=== PATIENT | female | born 2000 | race Caucasian/White ===

== ENCOUNTER 2023-06-12 21:02 | Outpatient (REF) | payer OTHER, SELFPAY ==
[2023-06-17 09:09] LABS: Age Gdln ACOG Testing Note (.); IGP, rfx Aptima HPV ASCU Note (.)
== END 2023-06-12 21:03 | disposition home or self-care (01) ==
LOC: LAB 21:02
PROVIDERS: Family Provider Family Medicine; Visit Provider Obstetrics & Gynecology
DX: Z01.419 Encounter for gynecological examination (general) (routine) without abnormal findings (principal)
CPT/HCPCS: G0145

== ENCOUNTER 2023-06-23 10:05 | Outpatient (OUT) | payer OTHER, SELFPAY ==
--- NOTE | 2023-06-23 10:41 | XR_ITS ---
[address] [address] Patient Name: LUBA MCGEE MRN: [id number] date: 2000 Sex: F Assigned Patient Location: [facility] Current Patient Location: [facility] Accession/Order Number: [id number] Exam Date: 06/23/2023 10:45 Report Date: 06/23/2023 10:59 At the request of: KENDAL KAMINSKI Procedure: XR chest 2V EXAMINATION: XR chest 2V HISTORY: Preop exam COMPARISON: No relevant comparison available. TECHNIQUE: PA and lateral FINDINGS: LUNGS: No significant pulmonary parenchymal abnormalities. VASCULATURE: No increased pulmonary vasculature. PLEURA: No pneumothorax, effusion, or pleural thickening. CARDIAC: No cardiomegaly or cardiac silhouette abnormality. MEDIASTINUM: No visible mass or adenopathy. BONES: No fracture or visible bone lesion. Moderate pectus excavatum. Rotatory levocurvature OTHER: Negative. XR/XR chest 2V IMPRESSION: No acute cardiopulmonary process Electronically authenticated by: JV JENKINS Date: 06/23/2023 10:59
== END 2023-06-23 10:06 | disposition home or self-care (01) ==
LOC: PST 10:05
PROVIDERS: Family Provider Family Medicine; Visit Provider Obstetrics & Gynecology
DX: Z01.810 Encounter for preprocedural cardiovascular examination (principal); R10.2 Pelvic and perineal pain
CPT/HCPCS: 71046

== ENCOUNTER 2023-07-07 07:50 | Day surgery (SDC) | payer OTHER, SELFPAY ==
[2023-06-23 10:46] VITALS: BP 122/82; PULSE 81; TEMP 36.5; O2SAT 97; BMI 25.3
--- OUTSIDE RECORDS SUMMARY | 2023-07-07 07:55 | XMS_ITS | CCD ---
Author Organization [facility] Care Team Providers Care Wet Process Head Miller Name Role Phone Melina Quinteros Chloe Primary Care Physician [phone] Annabel Manuel Unavailable Unavailable TIMMIS, DR LANCASTER Admitting Unavailable TIMMIS, DR LANCASTER Attending Unavailable TIMMIS, DR LANCASTER Consulting Unavailable ALLSOP, DR PRATER Consulting Unavailable TIMMIS, DR LANCASTER Admitting Unavailable TIMMIS, DR LANCASTER Attending Unavailable TIMMIS, DR LANCASTER Consulting Unavailable ALLSOP, DR PRATER Consulting Unavailable TIMMIS, DR LANCASTER Admitting Unavailable TIMMIS, DR LANCASTER Attending Unavailable TIMMIS, DR LANCASTER Consulting Unavailable ALLSOP, DR PRATER Consulting Unavailable Sasha Howell MD Unavailable Ana Celaya Unavailable Ana Celaya Primary Care Provider Ama MCGINNIS Unavailable UNKNOWN, PHYSICIAN Primary Care Unavailable UNKNOWN, PHYSICIAN Referring Unavailable EBRAHEIM, JAYDEN Admitting Unavailable EBRAHEIM, JAYDEN Attending Unavailable Sasha Howell MD Unavailable Ana Celaya MD Unavailable [phone] Ana Celaya MD Primary Care Provider BRAEDEN RAI Primary Care Physician BRAEDEN RAI Primary Care Unavailable BRAEDEN RAI Attending Unavailable BRAEDEN RAI Admitting Unavailable BRAEDEN RAI Primary Care Unavailable Viet Lovelace Attending Unavailable BRAEDEN RAI Primary Care Unavailable Renu Mckoy Attending Unavaila ble BRAEDEN RAI Admitting Unavailable BRAEDEN RAI Primary Care Unavailable BRAEDEN RAI Attending Unavailable JOSEPHINE MONTEIRO Attending Unavailable [facility], [facility] Primary Care Unavailable JOSEPHINE MONTEIRO Referring Unavailable BRAEDEN RAI Referring Unavailable ANA CELAYA Primary Care Unavailable JOSEPHINE MONTEIRO Attending Unavailable ANA CELAYA Primary Care Unavailable TASHA MUÑOZ Referring Unavailable ANA CELAYA Primary Care Unavailable TASHA MUÑOZ Referring Unavailable KENDAL KAMINSKI Attending Unavailable KENDAL KAMINSKI Attending Unavailable Ana Celaya MD Primary Care Provider [phone] ANA CELAYA Primary Care Unavailable JOSEPH DONOVAN Attending Unavailable JOSEPH DONOVAN Referring Unavailable ANA CELAYA Primary Care Unavailable ANA CELAYA Primary Care Unavailable AMA RAPP Attending Unavailable ANA CELAYA Primary Care Unavailable TASHA MUÑOZ Referring Unavailable TASHA MUÑOZ Attending Unavailable ANA CELAYA Primary Care Unavailable TASHA MUÑOZ Referring Unavailable ANA CELAYA Primary Care Unavailable TASHA MUÑOZ Attending Unavailable NELSY CONNER Referring Unavailable Allergies Allergy Classification Reported Allergen(s) Allergy Type Date of Onset Reaction(s) Facility (1 source) Amoxicillin / Clavulanate; Translations: [AUGMENTIN] Drug Allergy 06-30-2020 [facility] Medications Current Medications Medication Drug Class(es) Dates Sig (Normalized) Sig (Original) 12 hr buPROPion hydrochloride 100 mg extended release oral tablet (3 sources) Aminoketone Start: 06-13-2023 take 1 tablet by mouth once daily in the morning buPROPion SR (WELLBUTRIN SR) 100 mg 12 hr tablet Take 100 mg by mouth every morning. 0 06/13/2023 Active dicyclomine hydrochloride 10 mg oral capsule (13 sources) Anticholinergic Start: 05-08-2020 take 2 capsules by mouth three times daily as needed dicyclomine (BENTYL) 10 mg capsule Indications: Ileitis Take 2 capsules by mouth three times daily as needed. 60 capsule 3 05/08/2020 Active Comment on above: Take 2 capsules by m outh three times daily as needed. hydrOXYzine hydrochloride 25 mg oral tablet (12 sources) Antihistamine take 1 tablet by mouth every eight hours as needed hydrOXYzine HCl (ATARAX) 25 mg tablet Take 25 mg by mouth three times daily as needed. 0 Active Comment on above: Take 25 mg by mouth three times daily as needed. hyoscyamine sulfate 0.125 mg oral tablet (7 sources) Start: 04-25-2023 take 1 tablet by mouth four times daily as needed for muscle spasms Levsin 0.125 mg SL Tab 0.125 mg = 1 tab(s), Oral, QID, PRN for spasm, # 40 tab(s), Refills(s) 0, [facility]acy: [id number], 162, cm, 04/25/23 14:50:00 EST, Height/Length Dosing, 70.9, kg, 04/25/23 14:50:00 EST, Weight Dosing Start Date: 04/25/23 Status: Ordered Start: 11-19-2019 take 1 tablet under the tongue every four hours hyoscyamine 0.125 mg sublingual Tab 0.125 mg = 1 tab(s), SubLingual, q4hr, # 90 tab(s), Refills(s) 0 Start Date: 11/19/19 Status: Ordered hyoscyamine 0.125 mg sublingual Tab (3 sources) Start: 11-19-2019 take 1 tablet under the tongue every four hours hyoscyamine 0.125 mg sublingual Tab 0.125 mg = 1 tab(s), SubLingual, q4hr, # 90 tab(s), Refills(s) 0 Start Date: 11/19/19 Status: Ordered medroxyPROGESTERone (20 sources) Progestin Start: 05-13-2020 inject 150 mg by intramuscular injection every three months Depo-Provera 150mg/mL intramuscular suspension 150 mg, IntraMuscular, q3mo, # 1 mL, Refills(s) 1, Pharmacy: [id number], 168, cm, 01/28/20 13:52:00 EST, Height/Length Dosing, 57.2, kg, 01/28/20 13:52:00 EST, Weight Dosing Start Date: 05/13/20 Status: Ordered inject 1 dose by int ramuscular injection every three months medroxyprogesterone acetate (DEPO-CHANGE LEAD A INTRAMUSC.) Inject 1 Dose intramuscularly every 3 months. 0 Active Comment on above: Inject 1 Dose intram uscularly every 3 months. ondansetron 4 mg oral tablet (2 sources) Serotonin-3 Receptor Antagonist Start: 04-25-19 End: 05-25-19 ondansetron 4 mg Tab 4 mg = 1 tab(s), Oral, As Directed, X 30 day(s), # 20 tab(s), Refills(s) 0, [facility]: [facility] #[id number], 162, cm, 04/25/23 14:50:00 EST, Height/Length Dosing, 70.9, kg, 04/25/23 14:50:00 EST, Weight Dosing Start Date: 04/25/23 Stop Date: 05/25/23 Status: Ordered propranolol hydrochloride 40 mg oral tablet (7 sources) beta-Adrenergic Angelica Start: 03-27-19 take 1 tablet by mouth every twelve hours propranolol (INDERAL) 40 mg tablet Take 1 tablet by mouth every 12 hours. 0 03/27/2023 Active Comment on above: Take 1 tablet by rosanna th every 12 hours. Completed/Discontinued Medications Medication Drug Class(es) Dates Sig (Normalized) Sig (Original) magnesium citrate 58.2 mg/ml oral solution (7 sources) Start: 11-04-2019 End: 05-10-2023 magnesium citrate (CITRATE OF MAGNESIA) solution Indications: Ileitis Take 10 oz as instructed for cleanout 295 mL 0 11/04/2019 05/10/2023 Discontinued Comment on above: Take 10 oz as instru cted for cleanout mesalamine 500 mg extended release oral capsule (16 sources) Aminosalicylate Start: 11-04-2020 End: 06-28-2023 take 4 capsules by mouth twice daily Mesalamine (PENTASA) 500 mg CR capsule Take 4 capsules by mouth twice daily. 720 capsule 0 11/04/2020 06/28/2023 Discontinued Comment on above: Take 4 capsules by m outh twice daily. sertraline 50 mg oral tablet (10 sources) Serotonin Reuptake Inhibitor End: 06-28-2023 take 1 tablet by mouth once daily sertraline (ZOLOFT) 50 mg tablet Take 50 mg by mouth once daily. 0 06/28/2023 Discontinued Comment on above: Take 50 mg by mouth once daily. Problems Active Problems Problem Classification Problem Date Documented Da te Episodic/Chronic Cardiac dysrhythmias (8 sources) Palpitations 02-28-2019 Episodic Comment on above: Evaluated last year at [facility] after an episode at a sporting event of chest pressure/ palpitations, witih negative work up per patient's Mom, Nelia Contraceptive and procreative management (8 sources) Contraception using injectable contraceptive medication 07-08-2019 Episodic Menstrual disorders (8 sources) Menorrhagia 07-13-2018 Chronic Noninfectious gastroenteritis (8 sources) Inflammatory bowel disease 03-10-2020 Episodic Other bone disease and musculoskeletal deformities (13 sources) Adolescent idiopathic scoliosis of thoracic spine; Translations: [Adolescent idiopathic scoliosis, thoracic region] Onset: 10-08-2015 10-08-2015 Chronic Other connective tissue disease (8 sources) H/O: musculoskeletal disease 02-27-2019 Episodic Other connective tissue disease (3 sources) Muscle pain; Translations: [Myalgia, unspecified site] 05-10-2023 Episodic Other connective tissue disease (2 sources) Myalgia, unspecified site; Translations: [Myalgia] Onset: 05-10-2023 Episodic Other eye disorders (1 source) Bilateral vitreous floaters; Translations: [Other vitreous opacities, bilateral] 10-10-2022 Chronic Other gastrointestinal disorders (8 sources) Splenomegaly 03-10-2020 Episodic Other upper respiratory disease (1 source) Deviated nasal septum; Translations: [Deviated nasal septum] Onset: 06-08-2021 Episodic Other upper respiratory disease (1 source) Hypertrophy of nasal turbinates; Translations: [Hypertrophy of nasal turbinates] Onset: 06-08-2021 Episodic Other upper respiratory disease (1 source) Deviated nasal septum; Translations: [DEVIATED NASAL SEPTUM] Onset: 05-27-2021 Episodic Regional enteritis and ulcerative colitis (8 sources) Terminal ileitis 03-10-2020 Chronic Residual codes; unclassified (1 source) Pain; Translations: [Pain, unspecified] 11-25-2022 Episodic Spondylosis; intervertebral disc disorders; other back problems (12 sources) Prolapsed lumbar intervertebral disc; Translations: [Other intervertebral disc displacement, lumbar region] Onset: 05-10-2023 05-10-2023 Chronic Spondylosis; intervertebral disc disorders; other back problems (15 sources) Sacroiliac joint pain; Translations: [Sacrococcygeal disorders, not elsewhere classified] Onset: 05-10-2023 01-10-2023 Episodic Viral infection (1 source) Viral disease; Translations: [Viral infection, unspecified] Onset: 04-25-2023 Episodic Past or Other Problems Problem Classification Problem Date Documented Da te Episodic/Chronic Abdominal pain (20 sources) Acute abdominal pain; Translations: [Abdominal tenderness] Onset: 02-04-2020 06-10-2020 Episodic Blindness and vision defects (3 sources) Bilateral irregular astigmatism of eyes; Translations: [Irregular astigmatism, bilateral] Onset: 10-10-2022 10-10-2022 Episodic Other non-traumatic joint disorders (20 sources) Pain in left knee; Translations: [Pain in joint, lower leg] Onset: 06-04-2015 06-04-2015 Episodic Residual codes; unclassified (1 source) Pain, unspecified; Translations: [Pain] Onset: 11-25-2022 Episodic Unclassified (1 source) Exposure to 2019 novel coronavirus; Translations: [Contact with and (suspected) exposure to COVID19] Results Test Name Value Interpretation Reference Range Facility CNOVon 06-28-2023 CNOV Office Visit (SPNMAV ) JOANNE MCGEE ([id number]) 4 F Date Time Provider Department 06/28/23 10:40 AM TASHA MUÑOZ SPNMAV During your visit today, we recorded the following information about you: Weight Height 65.8 kg 1.626 m Tasha Muñoz DO 06/28/2023 12:47 PM Signed SPINE CARE PATH LOW BACK PAIN: CHRONIC FOLLOW UP SUBJECTIVE HISTORY OF PRESENT ILLNESS: Reason for Visit: follow up low back/bilateral buttock, lateral thigh pain Joanne Mcgee is seen for 4 week follow up. She is feeling the same. The distribution of symptoms is unchanged. Pain is currently 6 out of 10. Patient states no changes in symptoms. Patient here to discuss results of imaging and MRI and plan of care. Interim treatment has included NSAIDS for 3 Months or Greater (Tylenol / acetaminophen). Adherence with treatment has been fair . Adverse Effects: None Interim studies Obtained and Reviewed: X-rays, MRI, EMG PREVIOUS TREATMENTS IN THE LAST SIX MONTHS Active conservative therapy in the last six months (see below) 1. Physical therapy: Yes - Dad is PT - went over exercises with pat 2. Home exercise program after PT: Yes - stretching daily for 60 minutes 3. A physician supervised home exercise program (HEP): No 4. 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 What are your limitations: None Passive conservative therapy in the last six months (see below) 1. NSAIDS: Tylenol - last dose two days ago 2. Prescription pain medication: Prednisone - did not help 3. Acupuncture: No 4. Tens unit: No YELLOW AND BLUE FLAGS No-Neg Attitude; Back Pain is Disabling No-Avoiding Activity (for Fear of Pain) No-Depression or Anxiety Disorders No-Social Problems No-Substance Use Disorder No-Job Dissatisfaction No-Financial Disincentives Patient Entered Questionnaires Oswestry Score: Pain: 1 - The pain is bad, but I can manage without having to take pain medication. Personal Care: 0 - I can take care of myself normally without causing increased pain. Liftin - I can lift heavy weights, but it causes increased pain. Walkin - Pain prevents me from walking more than 1 mile. Sittin - Pain prevents me from sitting for more than 1 hour. Standin - Pain prevents me from standing more than 1 hour. Sleepin - I can sleep well only by using pain medication. Social Life: 3 - Pain prevents me from going out very often. Travelin - I can travel anywhere, but it increases my pain. Employment/Homemakin - My normal homemaking/job activities increase my pain, but I can still perform all that is required of me. Score: 21/50 Oswestry Interpretation: 20-40% = Moderate disability 06/26/2023 Spine Questions Pain Location: Lower back Pain Duration: More than 5 years Pain over last 6 months: Every day or nearly every day in the past 6 months Symptoms from neck/cervical spine: No Employment Status: Working now Involved in law suit/legal claim: No 06/26/2023 Spine Red Flags Any type of cancer: No Unexplained fever: No Bowel or bladder disfunction: No Unintentional weight loss: No Osteoporosis: No PROMIS Score Percentiles 06/26/2023 Physical Health Physical Function Percentile 14 Sleep Percentile 34 Fatigue Percentile 8 Pain Interference Percentile 10 06/26/2023 PROMIS SOCIAL ROLE SCORE Social Role Satisfaction Percentile 34 06/26/2023 PROMIS Global Health Scale Physical Health Percentile 7 Mental Health Percentile 19* Percentiles provide an indication of how the patient's score ranks in relation to the general population. Higher percentile rankings indicate better function/quality of life. 50th percentile is the average of the general population and indicates half of respondents had a worse score. Depression Screenin06/26/2023 PHQ-9 Score 6 06/26/2023 PHQ-9 Self-harm Question Question 9 Not at all PHQ-9 Self-Harm (Item 9) response options: 0 Not at all 1 Several days 2 More than half the days 3 Nearly every day PHQ-9 Levels: 0-4 No - mild depression 5-9 Mild depression 10-14 Moderate depression 15-19 Moderately severe depression 20-27 Severe depression ACTIVE PROBLEM LIST Chronic Pain of Left Knee Chronic Pain of Right Knee Adolescent Idiopathic Scoliosis of Thoracic Region Abdominal Tenderness Abdominal Pain No past medical history on file. PAST SURGICAL HISTORY Procedure Laterality Date OVARIAN CYSTECTOMY Left PAST SURGICAL HISTORY OF tonsoles PAST SURGICAL HISTORY OF toe PAST SURGICAL HISTORY OF Nose terminate bone Social History Tobacco Use Smoking status: Never Smokeless tobacco: Never No family history on file. ALLERGIES No Known Allergies CURRENT MEDICATIONS: buPROPion SR (WELLBUTRIN SR) 100 mg 12 hr tablet Take 100 mg by mouth every morning. propranolol (INDERAL) 40 mg tablet Take 1 tablet by mouth every 12 hour (more content not included)... Normal [facility] [place] 06-28-2023 BRANDY Telephone (SPRENZOAV) JOANNE MCGEE ([id number]) 4 F Date Time Provider Department 06/28/23 TASHA MUÑOZ During your visit today, we recorded the following information about you: Ayanna Machado MA 06/28/2023 11:11 AM Signed Patient was seen in office today. Spoke to patient and mother in reguards to pre procedure instructions. 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 Pt advised to arrive 30 min prior. Pt advised will also receive a call the day before from the surgery center to confirm date/time. Pt can eat and drink as normal. and Pt can take medications as normal. No alcohol 24 hours prior. Advised on location of [facility] Pt will receive a follow up call several days after by a logistics team leader. If you experience any increase in weakness, difficulty walking or significant increase in pain that last more than 4 hours, please proceed to the Emergency Room and tell them you had a spine procedure done recently. Additionally, call us and notify us of these symptoms. Please call [phone] if you have any questions. Pt verbalized understanding. Allergies As of Date: 06/28/2023 (No Known Allergies) Date Reviewed: 06/28/2023 Reviewed by: Ayanna Machado MA - Fully Assessed Reason for Visit: procedure instructions [Other] Prescriptions as of 06/28/2023 - buPROPion SR (WELLBUTRIN SR) 100 mg 12 hr tablet Take 100 mg by mouth every morning. - propranolol (INDERAL) 40 mg tablet Take 1 tablet by mouth every 12 hours. - hydrOXYzine HCl (ATARAX) 25 mg tablet Take 25 mg by mouth three times daily as needed. - dicyclomine (BENTYL) 10 mg capsule Take 2 capsules by mouth three times daily as needed. - medroxyprogesterone acetate (DEPO-PROVERA INTRAMUSC.) Inject 1 Dose intramuscularly every 3 months. Problem List As Of Date 06/28/2023 Noted Resolved Chronic pain of left knee [M25.562, G89.29] 06/04/2015 Chronic pain of right knee [M25.561, G89.29] 06/04/2015 Adolescent idiopathic scoliosis of thoracic reg*10/08/2015 Abdominal tenderness [R10.819] 02/04/2020 Abdominal pain [R10.9] 02/04/2020 Encounter Status:Closed by AYANNA MACHADO on 06/28/23 [facility] ID: [id number] Author: VERÓNICA HERNANDEZ MRI Tech Service: Radiology Author Type: Technologist Type: Allied Health Filed: 06/05/2023 15:00 Note Text: Radiology Service Progress Note PATIENT NAME: Joanne Mcgee DATE OF SERVICE: June 05, 2023 TIME: 3:00 PM PATIENT IDENTITY VERIFICATION COMPLETED USING TWO (2) IDENTIFIERS: Name and Date of confirmed by patient verbally and Name and Date of confirmed by identification band. FALL SCREENING: Has the patient had 2 falls in the last year or 1 fall with injury or currently using an Ambulatory Assistive Device (Walker, Cane, Wheelchair, Crutches, etc.)? No PATIENT GENDER DATA: Female. status: : No status: NO. PATIENT RELEVANT IMPLANT DATA REVIEWED: Yes PATIENT PRESENTS WITH AN IMPLANTABLE OR ATTACHED NOVELTY BALLOON ASSEMBLER AND PACKER: No RADIOLOGY DEPARTMENT: MR; Exam(s) Completed: Spine: Lumbar spine PERIPHERAL IV DATA: Not applicable SIGNED BY: FELICIANO Louis June 05, 2023 3:00 PM Normal [facility] EMG(NEURO/NI)on 06-05-2023 [facility] MR Lumbar spine WO contrasto n 06-05-2023 [facility] MRI LUMBAR SPINE WO IVCONon 06-05-2023 MRI LUMBAR SPINE WO IVCON * * *Final Report* * * DATE OF EXAM: Jun 05 2023 3:04PM [facility] 0303 - MRI LUMBAR SPINE WO IVCON / PROCEDURE REASON: Spinal stenosis of lumbar region, unspecified whether neurogenic claudication pr * * * * Physician Interpretation * * * * EXAMINATION: MRI LUMBAR SPINE WO IVCON CLINICAL HISTORY: Spinal stenosis of lumbar region, unspecified whether neurogenic claudication present TECHNIQUE: Routine lumbosacral spine MR protocol without gadolinium. MQ: [id number] COMPARISON: Lumbar spine radiographs 05/10/2023, lumbar spine MRI 08/06/2018 RESULT: Counting reference: Lumbosacral junction. For the purposes of this report, L4-5 is considered the level of the iliac crest and assume there are 5 lumbar-type vertebrae. Anatomic variant: None. Localizer images: Chronic splenomegaly. Alignment: Levoscoliosis of the lower thoracic spine centered at T10-T11. Bone marrow signal/fracture: No evidence of pathologic marrow infiltration. No evidence of prior fracture. Conus: The conus is within normal limits of signal intensity and morphology. Paraspinal soft tissues: Paraspinal soft tissues are within normal limits. Lower thoracic spine: Visualized lower thoracic canal and foramina are patent. L1-L2: Mild degenerative disc disease without canal or foraminal stenosis. L2-L3: Mild degenerative disc disease without canal or foraminal stenosis. L3-L4: Moderate degenerative disc disease with small posterior broad-based disc bulge and endplate osteophytic ridging, small superimposed residual right eccentric posterior disc protrusion, as well as mild degenerative facet disease with minimal left foraminal narrowing and no substantial canal stenosis. L4-L5: Moderate degenerative disc disease with posterior central disc extrusion slightly eccentric to the right combined with mild degenerative facet disease and ligamentum flavum thickening resulting in moderate right lateral recess stenosis with crowding of the descending right L5 nerve roots, mild central stenosis, and no substantial foraminal stenosis. L5-S1: Mild degenerative disc disease as well as mild to moderate bilateral degenerative facet disease without substantial canal or foraminal stenosis. Sacrum and iliac wings: The visualized sacrum and iliac wings are within normal limits. IMPRESSION: Degenerative changes are most pronounced at L4-L5 with interval development of a posterior disc extrusion slightly eccentric to the right resulting in moderate narrowing of the right lateral recess and crowding of the descending right L5 nerve roots. No substantial central or foraminal stenosis. Levoscoliosis is present centered at T10-T11. Anatomic Lumbar Variant: None. L4-5 is considered the level of the iliac crest and assume there are 5 lumbar-type vertebrae. Web Coordinator: SANJAY Transcribe Date/Time: Jun 05 2023 3:30P Dictated by : VIJI AYALA MD This examination was interpreted and the report reviewed and electronically signed by: VIJI AYALA MD on Jun 05 2023 3:36PM EST [id number] [facility] CNOVon 05-10-2023 CNOV Office Visit (SPNMAV ) JOANNE MCGEE ([id number]) 4 F Date Time Provider Department 05/10/23 9:00 AM TASHA MUÑOZ SPNMAV During your visit today, we recorded the following information about you: Weight Height 65.8 kg 1.626 m Tasha Muñoz DO 05/10/2023 9:42 AM Signed Spine Care Path Low Back Pain - Chronic (> 12 weeks) Initial Exam SUBJECTIVE HISTORY OF PRESENT ILLNESS: Joanne Mcgee is a 23 year old female who presents with a chief complaint of low back pain and is seen in consultation requested by Dr. Nelsy Conner for an opinion regarding LBP radiating to the BL buttocks and down the BL lateral thighs. Pt does not know the last time she was pain free. Pt has a history of Scoliosis. My final recommendations will be communicated back to the requesting physician by way of shared medical record or letter via [place] mail. Other Issues Addressed at the Visit Today: None. Precipitating Event: None PAIN EVALUATION 05/10/2023 0854 Pain Level: 7 Pain Location: -- LBP radiating to the BL buttocks and down the BL lateral thighs Description: -- Sharp Duration Units: Years Frequency: Continuous Intervention/Comfort measure: -- PT, Stretching/HEP, Dry needling, Heat, Ice, Medications Pain Radiation: as noted above. Aggravating Factors: Bending over, Movement, Walking or Standing too long Alleviating Factors: Heat Pain Ratio: The lower back pain is greater than the other regions of pain Prior Therapy: Ice, Heat, Dry needling, Mobic, Formal PT years ago , Tylenol X current PREVIOUS TREATMENTS IN THE LAST SIX MONTHS Active conservative therapy in the last six months (see below) 1. Physical therapy: Yes Dad is a PT and went over exercises with pt recently at home-Pt is doing Stretching/HEP daily for >60 minutes 2. Home exercise program after PT: Yes See above 3. A physician supervised home exercise program (HEP): No 4. 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 What are your limitations: None Passive conservative therapy in the last six months (see below) 1. NSAIDS: Ibuprofen 3 tabs taken yesterday 2. Prescription pain medication: Prednisone did not help 3. Acupuncture: No 4. Tens unit: No Litigation: No Workers' Compensation: No YELLOW AND BLUE FLAGS No-Neg Attitude; Back Pain is Disabling No-Avoiding Activity (for Fear of Pain) No-Depression or Anxiety Disorders No-Social Problems No-Substance Use Disorder No-Job Dissatisfaction No-Financial Disincentives Patient Entered Questionnaires Oswestry Score: Pain: 4 - Pain medication provides me with little relief from pain. Personal Care: 1 - I can take care of myself normally, but it increases my pain. Liftin - Pain prevents me from lifting heavy weights off the floor, but I can manage if the weights are conveniently positioned (eg on a table). Walkin - Pain does not prevent me from walking any distance. Sittin - I can sit in any chair as long as I like. Standin - I can stand as long as I want, but it increases my pain. Sleepin - I can sleep well only by using pain medication. Social Life: 2 - Pain prevents me from participating in more energetic activities (eg. sports, dancing). Travelin - I can travel anywhere, but it increases my pain. Employment/Homemakin - My normal homemaking/job activities increase my pain, but I can still perform all that is required of me. Score: 13/50 Oswestry Interpretation: 0-20% = Mild disability PROMIS Score Percentiles Percentiles provide an indication of how the patient's score ranks in relation to the general population. Higher percentile rankings indicate better function/quality of life. 50th percentile is the average of the general population and indicates half of respondents had a worse score. Depression Screening: PHQ-9 Self-Harm (Item 9) response options: 0 Not at all 1 Several days 2 More than half the days 3 Nearly every day PHQ-9 Levels: 0-4 No - mild depression 5-9 Mild depression 10-14 Moderate depression 15-19 Moderately severe depression 20-27 Severe depression ACTIVE PROBLEM LIST Chronic Pain of Left Knee Chronic Pain of Right Knee Adolescent Idiopathic Scoliosis of Thoracic Region Abdominal Tenderness Abdominal Pain No past medical history on file. PAST SURGICAL HISTORY Procedure Laterality Date OVARIAN CYSTECTOMY Left PAST SURGICAL HISTORY OF tonsoles PAST SURGICAL HISTORY OF toe PAST SURGICAL HISTORY OF Nose terminate bone Social History Tobacco Use Smoking status: Never Smokeless tobacco: Never No family history on file. ALLERGIES No Known Allergies CURRENT MEDICATIONS: sertraline (ZOLOFT) 50 mg tablet Take 50 mg by mouth once daily. hydrOXYzine HCl (ATARAX) 25 mg tablet Take 25 mg by mouth three times daily as needed. Mesalamine (PENTASA) 500 mg CR capsule Take 4 capsules by rosanna (more content not included)... Normal [facility] XR LUMBAR 3V AP/LAT/L5-S1on 05-10-2023 XR LUMBAR 3V AP/LAT/L5-S1 * * *Final Report* * * DATE OF EXAM: May 10 2023 10:14AM VHX 5228 - XR LUMBAR 3V AP/LAT/L5-S1 / PROCEDURE REASON: multiple diagnoses * * * * Physician Interpretation * * * * EXAMINATION: XR LUMBAR 3V AP/LAT/L5-S1 HISTORY: chronic low back pain - bb marker indicated by Sacroiliac pain Lumbar disc herniation Degenerative arthropathy of spinal facet joint Myalgia. TECHNIQUE: XR LUMBAR 3V AP/LAT/L5-S1 Laterality: NOT APPLICABLE Number of different views (projections): 3 M: XB_1 COMPARISON: RESULT: Counting Reference: Lumbosacral junction.. For the purposes of this report, the most caudal normal disc space in the lumbar region will be labeled as L5-S1. The iliac crest will serve as a secondary landmark to identify the L4-5 level. Exceptions: none Mild thoracolumbar scoliosis convex right in the lumbar spine. Alignment appears otherwise maintained. Normal disc and vertebral body heights. Mild lower lumbar degenerative facet changes. The metallic markers are near the superior aspect of the sacroiliac joints bilaterally. Sacroiliac joints appear maintained. No acute fracture or dislocation. There are no bony erosions. IMPRESSION: Mild scoliosis and degenerative facet changes. Web Coordinator: PSCB Transcribe Date/Time: May 10 2023 10:35A Dictated by : ROBB JOYNER MD This examination was interpreted and the report reviewed and electronically signed by: ROBB JOYNER MD on May 10 2023 10:35AM EST [id number] Normal [facility] XR Lumbar spine 3 Viewson [facility] H. pylori Stool Agon 024 H. pylori Ag IA Ql (Stl) Negative Invalid Interpretation Code Negative [facility] Comment on above: Result Comment: Perf ormed at: [facility] [id number] PhD Deondre Holland Performed By: #### 1 [id number] ####[facility] [address] [place] [address] Physician Orderon 05-01-2023 Physician Order [id number]. 00TIFF Normal [facility] ED Note-Physicianon 04-28-19 ED Note-Physician Basic Information Time Seen: Judah FAULKNER, Johanne Justin 04/25/2023 14:40 Chief Complaint R lower abd for three days worsening last night. n/v since yesterday. hx ovarian cysts. History of Present Illness This patient presents emergency department chief complaint of right lower quadrant abdominal pain. She states this has been going on over a day now. Its gotten much worse. She has had nausea and vomiting x 3 since yesterday. She does not have any appetite. She had a temperature of over 100 degrees early this morning. She denies sweats. She does endorse chills. She denies any constipation or diarrhea. Her last normal bowel movement was this morning. She denies melena or hematochezia. She denies any urinary burning frequency or urgency. She denies any chest pain or shortness of breath. She states when she takes a very deep breath, it makes her right lower quadrant hurt. She spoke with her primary care physician and they were concerned that she had an ovarian cyst or appendicitis and told her she should come in and be evaluated. The patient is on Depo-Provera. She denies . She has never been . She has never had any abdominal surgeries. Review of Systems Constitutional: Denies weight loss, fevers, chills, sweats, malaise Eyes: Denies visual changes, eye pain, double vision, scotomas, floaters ENT: Denies runny nose, epistaxis, sinus pain, ear pain, ringing in ears, tooth ache, sore throat, pain with swallowing Cardiovascular: Denies chest pain, shortness of breath, orthopnea, edema, palpitations, loss of consciousness, claudication Respiratory: Denies cough, sputum production, wheezing, hemoptysis, shortness of breath, dyspnea on exertion Gastrointestinal: + RLQ abdominal pain, loss of appetite, nausea, vomiting Genitourinary: Denies any incontinence of urine, dysuria, hematuria, nocturia, polyuria, hesitancy, frequency, urgency, burning Musculoskeletal: Denies joint pain, morning stiffness, joint swelling, decreased range of motion, crepitus Integumentary: Denies any pruritus, rashes, lesions, wounds, petechiae Neurologic: Denies any changes in sight, smell, hearing, taste, seizures, headache, paresthesia, numbness, weakness, balance disturbance Psychiatric denies any depression, change in sleep patterns, anxiety, difficulty concentrating, paranoia, anhedonia, lack of energy, cesar Hematologic/lymphatic: Denies any purpura, petechiae, excessive bleeding, bruising Physical Exam Vitals & Measurements T: 37.0 ?C(Oral) HR: 67(Monitored) RR: 18 BP: 111/84 SpO2: 96% HT: 162 cm WT: 70.9 kg BMI: 27.02 Vital signs and nursing notes reviewed. General: Awake, alert, mild distress HEENT: Head is normocephalic, atraumatic. PERRL. EOMI. Sclerae are anicteric. External ears are normal. TMs are intact bilaterally. Canals are clear bilaterally. Nares are patent bilaterally. Oral mucosa is pink and moist. No lesions noted. Tongue protrudes in midline. Uvula rises with phonation. Neck is supple, no no palpable adenopathy. No JVD. Trachea is midline. Thorax: Symmetrical rise and fall Lungs: Clear to auscultation throughout all clemente, no wheezes, no crackles Heart: Regular rate and rhythm. No murmur, gallop, or rub Abdomen: + tenderness on palpation RLQ with rebound tenderness. Bowel sounds are present active and normal. No organomegaly. No palpable masses. No CVA tenderness. Extremities: Motor sensory pulses intact x4 extremities. No lower extremity edema. Skin: No lesions, rashes, ulcerations. No bruising or petechiae. Color appropriate, warm and dry Neuro: No oriented x3, no focal neuro deficits Psych: Mood and affect are normal Medical Decision Making MEDICAL DECISION MAKING Number and Complexity of Problems Differential Diagnosis: Ovarian torsion, ovarian cyst, appendicitis, cholecystitis, pancreatitis, gastroenteritis, viral illness MDM Data External documents reviewed: Not applicable My EKG interpretation: Noted in chart if applicable My CT interpretation: Noted in chart if applicable My X-ray interpretation: Noted in chart if applicable My Ultrasound interpretation: Not applicable Decision rules/scores evaluated: Noted in chart if applicable Discussed with: Not applicable Treatment and Disposition ED Course: The patient was interviewed and examined. Appropriate ER workup was initiated. Patient declined any antiemetics or pain medications at this time. Patient was given a liter normal saline wide open. Urine hCG is negative. White blood count 6.9, hemoglobin 15.1, hematocrit 43.6, platelets 155. Lipase was 21. Lactic acid 1.0. UA completely unremarkable. I discussed with the patient proceeding with ultrasound evaluation given normal white blood count. I discussed with her if the ultrasound does not provide an answer for her discomfort, we will then proceed with CT scan of the abdomen pelvis with IV contrast. The patient was in agreement with the plan of care. Prior to ultrasound the patient was medicated with onda (more content not included)... Normal [facility] Comment on above: Result Comment: Elec tronically Signed By: Johanne So PA-C\.br\Date and Time Signed: 04/25/23 23:52 EST\.br\Electronically Co-Signed By: Viet Lovelace DO\.br\Date and Time Co-Signed: 04/28/23 07:30 EST BMPon 04-25-2023 Anion gap [Moles/Vol] 12 mmol/L Normal 6-[address] [facility] Comment on above: Performed By: #### 1 [id number], 5939198, 6490362, 8707764, 6179488, 6072806 ####[facility] [address] [place] [address] Calcium [Mass/Vol] 9.7 mg/dL Normal 8.9-11.1 [facility] Comment on above: Performed By: #### 1 6960256, 3817122, 1783700, 6123552, 4429248, 4100172 ####[facility] [address] [place] [address] Chloride [Moles/Vol] 105 mmol/L Normal 101-111 [facility] Comment on above: Performed By: #### 1 5204693, 8997540, 4452462, 0094182, 5492073, 7289130 ####[facility] [address] [place] [address] CO2 [Moles/Vol] 24 mmol/L Normal 21-31 [facility] Comment on above: Performed By: #### 1 2953716, 0234424, 2790058, 4744520, 7134355, 4640705 ####[facility] [address] [place] [address] Creatinine [Mass/Vol] 0.9 mg/dL Normal 0.5-1.3 [facility] Comment on above: Performed By: #### 1 0835457, 2018431, 6009268, 9872856, 5808830, 7170131 ####[facility] [address] [place] [address] Glucose [Mass/Vol] 88 mg/dL Normal 55-199 [facility] Comment on above: Performed By: #### 1 6290554, 3418945, 8803270, 0006575, 1177138, 6926292 ####[facility] [address] [place] [address] Potassium [Moles/Vol] 3.7 mmol/L Normal 3.5-5.3 [facility] Comment on above: Performed By: #### 1 9465470, 5634229, 9839394, 7530895, 1127882, 1952565 ####[facility] [address] [place] [address] Sodium [Moles/Vol] 137 mmol/L Normal 135-145 [facility] Comment on above: Performed By: #### 1 0472405, 1389124, 2722187, 4033282, 0658549, 0140599 ####[facility] [address] [place] [address] Urea nitrogen [Mass/Vol] 13 mg/dL Normal 5-21 [facility] Comment on above: Performed By: #### 1 2262427, 2893343, 9909154, 8830688, 7566126, 0087030 ####[facility] [address] [place] [address] Urea nitrogen/Creatinine [Mass ratio] 14 No Units Normal 10-20 [facility] Comment on above: Performed By: #### 1 9513412, 7086612, 4812773, 7873539, 9355799, 1383327 ####[address] [place] [address] CBC w/ Auto Diffon 4 Basophils/100 WBC (Bld) 0.8 % Normal 0.0-2.0 [facility] Comment on above: Performed By: #### 1 6134950, 7541457, 6898345, 9361880, 7521276, 5811233 ####[address] [address] Basophils/Leukocytes Auto (Bld) [Pure # fraction] 0.1 E9/L Normal 0.0-0.2 [facility] Comment on above: Performed By: #### 1 7559883, 1664341, 7158111, 5079115, 0986893, 8400989 ####[address] [address] Eosinophils (Bld) [#/Vol] 0.2 E9/L Normal 0.0-0.5 [facility] Comment on above: Performed By: #### 1 3642474, 9975836, 8471320, 2911478, 6125394, 3473627 ####[address] [address] Eosinophils/100 WBC (Bld) 2.7 % Normal 0.0-8.0 [facility] Comment on above: Performed By: #### 1 9814271, 0285506, 7454565, 3507239, 3211736, 6881486 ####[address] [address] Erythrocyte distribution width (RBC) [Ratio] 13.4 % Normal 10.9-14.2 [facility] Comment on above: Performed By: #### 1 1632054, 8692844, 8800146, 7301896, 4884929, 9202850 ####[address] [place] [address] Hematocrit (Bld) [Volume fraction] 43.6 % Normal 34.0-46.0 [facility] Comment on above: Performed By: #### 1 9609223, 7741588, 3291233, 1634803, 8487611, 3075736 ####[address] [address] Hemoglobin (Bld) [Mass/Vol] 15.1 g/dL Normal 12.0-16.0 [facility] Comment on above: Performed By: #### 1 2743481, 1818659, 1069770, 1682638, 9886664, 6080349 ####[place] [address] Lymphocytes (Bld) [#/Vol] 1.7 E9/L Normal 1.0-4.0 [facility] Comment on above: Performed By: #### 1 4127531, 6911419, 9303671, 4598091, 0313999, 4675351 ####[place] [address] Lymphocytes/100 WBC (Bld) 24.6 % Normal 14.0-50.0 [facility] Comment on above: Performed By: #### 1 9658996, 3008822, 3373106, 3532441, 8964502, 0628930 ####[place] [address] MCH (RBC) [Entitic mass] 30.1 pg Normal 27.0-34.0 [facility] Comment on above: Performed By: #### 1 6946836, 7218826, 6678311, 6938443, 9443943, 1447058 ####[address] [address] MCHC (RBC) [Mass/Vol] 34.7 g/dL Normal 31.4-36.0 [facility] Comment on above: Performed By: #### 1 7214123, 3584585, 3588892, 5622385, 4404700, 7534686 ####[facility] [address] [place] [address] MCV (RBC) [Entitic vol] 86.9 fL Normal 80.0-100.0 [facility] Comment on above: Performed By: #### 1 1131234, 6241494, 6365485, 5861647, 1744695, 1344521 ####[address] [address] Monocytes (Bld) [#/Vol] 0.5 E9/L Normal 0.2-1.0 [facility] Comment on above: Performed By: #### 1 4514336, 9104123, 4055593, 1307587, 2282480, 2655857 ####[address] [address] Neutrophils (Bld) [#/Vol] 4.5 E9/L Normal 2.0-7.5 [facility] Comment on above: Performed By: #### 1 4769192, 9405797, 7041319, 1717681, 9445043, 7503492 ####[address] [address] Neutrophils/100 WBC (Bld) 65.1 % Normal 36.0-75.0 [facility] Comment on above: Performed By: #### 1 8221863, 5629061, 0742919, 9827160, 8666905, 2085739 ####[address] [address] Platelet 155.0 E9/L Normal 150.0-500.0 [facility] Comment on above: Performed By: #### 1 2248048, 8683387, 5883149, 7306672, 4350416, 9323204 ####[address] [address] Platelet mean volume (Bld) [Entitic vol] 9.6 fL Normal 6.4-10.8 [facility] Comment on above: Performed By: #### 1 2252529, 7002319, 5212242, 4605326, 0019227, 6172902 ####[facility] [address] [place] [address] RBC (Bld) [#/Vol] 5.0 E12/L Normal 4.3-5.9 [facility] Comment on above: Performed By: #### 1 7460316, 3098472, 0844720, 7724812, 5365533, 8730876 ####[facility] [address] [place] [address] WBC corrected for nucl RBC Auto (Bld) [#/Vol] 6.9 E9/L Normal 4.0-11.0 [facility] Comment on above: Performed By: #### 1 9354609, 5838535, 8911009, 5818787, 3852177, 5727185 ####[facility] [address] [place] [address] CHEMISTRYOrdered By: SYSTEM SYSTEM on 04-25-2023 Albumin [Mass/Vol] 4.8 g/dL Normal 3.3 - 5.0 gm/dL [facility] Albumin/Globulin [Mass ratio] 2.0 {ratio} Normal 1.1 - 2.2 [facility] ALP [Catalytic activity/Vol] 39 [iU]/d Normal 21 - 98 Int._Unit/L Rem[facility] Chem ALT No additional P-5'-P [Catalytic activity/Vol] 12 [iU]/d Normal 6 - 46 Int._Unit/L [facility] Anion gap [Moles/Vol] 12 mmol/L Normal 6 - 16 mEq/L R emisol Chem AST [Catalytic activity/Vol] 13 [iU]/d Normal 5 - 43 Int._Unit/L [facility] Bilirubin [Mass/Vol] 0.6 mg/dL Normal 0.0 - 1 .1 mg/dL [facility] Bilirubin.direct [Mass/Vol] 0.1 mg/dL Normal 0.0 - 0.4 mg/dL [facility] Bilirubin.indirect [Mass or moles/Vol] 0.5 mg/dL Normal 0.1 - 0.9 mg/dL [facility] Calcium [Mass/Vol] 9.7 mg/dL Normal 8.9 - 11. 1 mg/dL [facility] Chloride [Moles/Vol] 105 mmol/L Normal 101 - 1 11 mmol/L [facility] CO2 [Moles/Vol] 24 mmol/L Normal 21 - 31 mmol/L [facility] Creatinine [Mass/Vol] 0.9 mg/dL Normal 0.5 - 1.3 mg/dL [facility] eGFR 93 mL/min/1.73 m2 Normal >=59mL/min /1 .73 m2 [facility] Globulin (S) [Mass/Vol] 2.4 g/dL Normal 1.4 - 4.0 gm/dL [facility] Glucose [Mass/Vol] 88 mg/dL Normal 55 - 199 mg/dL [facility] Lactic Acid Lvl 1.0 mmol/L Normal 0.5 - 2.2 mmol/L [facility] Lipase [Catalytic activity/Vol] 21 U/L Normal 13 - 58 unit/L [facility] Potassium [Moles/Vol] 3.7 mmol/L Normal 3.5 - 5.3 mmol/L [facility] Protein [Mass/Vol] 7.2 g/dL Normal 6.0 - 7.8 gm/dL [facility] Sodium [Moles/Vol] 137 mmol/L Normal 135 - 145 mmol/L [facility] Urea nitrogen [Mass/Vol] 13 mg/dL Normal 5 - 21 mg/dL [facility] Urea nitrogen/Creatinine [Mass ratio] 14 mg/mg Normal 10 - [address] Abdomen/Pelvis w/ Contras ton 04-25-2023 CT Abdomen/Pelvis w/ Contrast Exam Date/Time: 04/25/2023 18:17 EST Reason for Exam: Appendicitis suspected;Other (please specify) Report [facility] [id number] IMPRESSION: NEGATIVE APPENDIX. 2.9 X 2.1 CM LEFT ADNEXAL CYST, MOST LIKELY OVARIAN IN ETIOLOGY. PECTUS EXCAVATUM. CT OF THE ABDOMEN AND PELVIS WITH INTRAVENOUS CONTRAST MEDIUM. History: Appendicitis suspected. Technical Factors: CT imaging of the abdomen and pelvis were obtained and formatted as 5 mm contiguous axial images from the domes of the diaphragm to the symphysis pubis. Sagittal and coronal reconstructions were also obtained. Oral contrast medium: None. Intravenous contrast medium: 100 mL, Isovue-300.. Comparison: CT abdomen pelvis, June 08, 2020 Findings: Lower chest: Lung bases are clear. Marked pectus excavatum. Liver: Normal in size, shape, and attenuation. Bile Ducts: Normal in caliber. Gallbladder: No stones or wall thickening. Pancreas: Normal without masses, cysts, ductal dilatation or calcification. Spleen: Normal in size without masses or calcifications. No splenules. Kidneys: Normal in size and enhancement. No hydronephrosis, masses, or stones. Adrenals: Normal. Small bowel: Normal in caliber. Appendix: Normal. Colon: Normal in caliber. Report Peritoneum: No ascites, free air, or fluid collections. Vessels: Aorta normal in course and caliber. Portal vein, splenic vein, superior mesenteric vein are patent. Lymph nodes: Retroperitoneal: No enlarged retroperitoneal lymph nodes. Mesenteric: No enlarged mesenteric lymph nodes. Pelvic: No enlarged pelvic lymph nodes. Ureters: Normal in course and caliber. No calcifications. Bladder: No wall thickening. Reproductive organs: 2.9 x 2.1 cm left adnexal cyst. Abdominal Wall: No hernia identified. No diastasis of rectus musculature. No edema or masses. Bones: No bone lesions. No degenerative changes. No post operative changes. All CT scans at this facility use dose modulation, iterative reconstruction, and/or weight based dosing when appropriate to reduce radiation dose to as low as reasonably achievable. Ordering Provider: Johanne So FINAL REPORT Dictated: 04/25/2023 6:25 pm Magno Mooney MD Signed (Electronic Signature): 04/25/2023 6:25 pm Signed by: Magno Mooney MD Transcribed by: KELLY Technologist: KRISTY Technical Comments GFR (mL/min/1/73m2) n/a age Contrast: Isovue 300 Contrast amount in ml's: 100 Normal [facility] Consent for Treatmenton Consent for Treatment [id number] 0TIFF Normal [facility] Discharge Instructionson Discharge Instructions [id number]. [id number] Normal [facility] ED Clinical Summaryon 2023 ED Clinical Summary [address] [address] ED Clinical Summary Person Information Name: JOANNE MCGEE/[place] Age: 23 Years : 2000 Sex: Female Language: Georgian PCP: BRAEDEN RAI CNP Marital Status: Single Visit Id: Visit Reason: Vomiting; Nausea; Abdominal pain; SENT BY DOC FOR SYST PAIN Speciality: Acuity: 3 Enc Type: Emergency Med Service: Emergency Arrival: 04/25/2023 14:32:46 Discharge: 04/25/2023 19:29:40 LOS: 000 04:57 Checkin: 04/25/2023 14:32:46 Checkout: 04/25/2023 19:29:40 Dispo Type: Home (Routine DC) EVENTS: Event Name Event Status Request Date/Time Start Date/Time Complete Date/Time Arrive Complete 04/25/2023 14:32:46 04/25/2023 14:32:46 04/25/2023 14:32:46 Document Home Meds Request 04/25/2023 14:32:46 Triage Complete 04/25/2023 14:32:46 04/25/2023 14:50:51 04/25/2023 14:50:51 Bed Assign Complete 04/25/2023 14:39:34 04/25/2023 14:39:34 04/25/2023 14:39:34 Dr Exam Complete 04/25/2023 14:39:34 04/25/2023 14:40:34 04/25/2023 14:40:34 RN Exam Complete 04/25/2023 14:39:34 04/25/2023 15:20:43 04/25/2023 15:20:43 Registration Complete 04/25/2023 14:40:34 04/25/2023 14:50:06 04/25/2023 14:50:06 Dr Exam Complete 04/25/2023 14:42:39 04/25/2023 14:42:39 04/25/2023 14:42:39 Reg Complete Request 04/25/2023 14:50:06 Reg Bed Request Complete 04/25/2023 14:50:06 04/25/2023 14:50:06 04/25/2023 14:50:06 NPO Request 04/25/2023 14:54:15 Meds Admin Complete 04/25/2023 14:54:15 04/25/2023 15:14:25 Pending Labs Complete 04/25/2023 14:54:15 04/25/2023 15:54:37 Lab Complete 04/25/2023 14:54:15 04/25/2023 15:54:37 Urine Collect Complete 04/25/2023 14:54:15 04/25/2023 15:34:01 Patient Care Complete 04/25/2023 14:54:15 04/25/2023 15:15:28 Pending Labs Complete 04/25/2023 15:30:34 04/25/2023 15:30:34 04/25/2023 15:54:37 Lab Complete 04/25/2023 15:30:34 04/25/2023 15:30:34 04/25/2023 15:54:37 US Complete 04/25/2023 15:42:08 04/25/2023 15:46:05 04/25/2023 16:05:48 US Complete 04/25/2023 15:53:16 04/25/2023 17:09:26 04/25/2023 17:58:01 Meds Admin Complete 04/25/2023 16:02:17 04/25/2023 16:15:35 CT Complete 04/25/2023 17:55:01 04/25/2023 17:58:31 04/25/2023 18:17:24 Discharge Complete 04/25/2023 18:41:52 04/25/2023 19:29:48 04/25/2023 19:29:48 Meds Admin Complete 04/25/2023 18:42:40 04/25/2023 18:52:51 Transfer Complete 04/25/2023 19:29:48 04/25/2023 19:29:48 04/25/2023 19:29:48 ADDRESS: [address] [place] [phone] [facility] DOC NOTES: MEDICAL INFORMATION: Prescriptions Given: New Medications [id number], [address] [place] [id number], [phone] ondansetron (ondansetron 4 mg Tab) 1 Tablets By Mouth As Directed for 30 Days. Refills: 0. Medications to Continue Taking That Have Changed [facility] #[id number], [address] [place] [id number], [phone] START: hyoscyamine (Levsin 0.125 mg SL Tab) 1 Tablets By Mouth 4 times a day as needed for spasm. Refills: 0. Other Medications START: hyoscyamine (hyoscyamine 0.125 mg sublingual Tab) 1 Tablets Sublingual every 4 hours. Medications to Continue with No Changes Other Medications medroxyPROGESTERone (Depo-Provera 150mg/mL intramuscular suspension) 150 Milligram Intramuscular every 3 months. Refills: 1. mesalamine (Pentasa 500 mg oral capsule, extended release) 4 Tablets By Mouth 2 times a day. PATIENT EDUCATION INFORMATION: Instructions: Viral Illness, Adult Follow up: With: Address: When: BRAEDEN FREDI [address] [place] [phone] Business (1) In 3 days 04/28/2023 DIAGNOSIS: 1:Viral illness Normal [facility] ED Patient Education Noteon 04-25-2023 ED Patient Education Note Infectious Disease Viral Illness, Adult Viruses are tiny germs that can get into a person's body and cause illness. There are many different types of viruses, and they cause many types of illness. Viral illnesses can range from mild to severe. They can affect various parts of the body. Short-term conditions that are caused by a virus include colds and the flu (influenza). Long-term conditions that are caused by a virus include herpes, shingles, and HIV (human immunodeficiency virus) infection. A few viruses have been linked to certain cancers. What are the causes? Many types of viruses can cause illness. Viruses invade cells in your body, multiply, and cause the infected cells to work abnormally or . When these cells , they release more of the virus. When this happens, you develop symptoms of the illness, and the virus continues to spread to other cells. If the virus takes over the function of the cell, it can cause the cell to divide and grow out of control. This happens when a virus causes cancer. Different viruses get into the body in different ways. You can get a virus by: ? Swallowing food or water that has come in contact with the virus (is contaminated). ? Breathing in droplets that have been coughed or sneezed into the air by an infected person. ? Touching a surface that has been contaminated with the virus and then touching your eyes, nose, or mouth. ? Being bitten by an insect or animal that carries the virus. ? Having sexual contact with a person who is infected with the virus. ? Being exposed to blood or fluids that contain the virus, either through an open cut or during a transfusion. If a virus enters your body, your body's defense system (immune system) will try to fight the virus. You may be at higher risk for a viral illness if your immune system is weak. What are the signs or symptoms? You may have these symptoms, depending on the type of virus and the location of the cells that it invades: ? Cold and flu viruses: ? Fever. ? Headache. ? Sore throat. ? Muscle aches. ? Stuffy nose (nasal congestion). ? Cough. ? Digestive system (gastrointestinal) viruses: ? Fever. ? Pain in the abdomen. ? Nausea. ? Diarrhea. ? Liver viruses (hepatitis): ? Loss of appetite. ? Tiredness. ? Skin or the white parts of your eyes turning yellow (jaundice). ? Brain and spinal cord viruses: ? Fever. ? Headache. ? Stiff neck. ? Nausea and vomiting. ? Confusion or sleepiness. ? Skin viruses: ? Warts. ? Itching. ? Rash. ? Sexually transmitted viruses: ? Discharge. ? Swelling. ? Redness. ? Rash. How is this diagnosed? This condition may be diagnosed based on one or more of the following: ? Symptoms. ? Medical history. ? Physical exam. ? Blood test, sample of mucus from your lungs (sputum sample), stool sample, or a swab of body fluids or a skin sore (lesion). How is this treated? Viruses can be hard to treat because they live within cells. Antibiotic medicines do not treat viruses because these medicines do not get inside cells. Treatment for a viral illness may include: ? Resting and drinking plenty of fluids. ? Medicines to relieve symptoms. These can include sjzv-ecw-ybihgtl medicine for pain and fever, medicines for cough or congestion, and medicines to relieve diarrhea. ? Antiviral medicines. These medicines are available only for certain types of viruses. Some viral illnesses can be prevented with vaccinations. A common example is the flu shot. Follow these instructions at home: Medicines ? Take yiyg-vqv-wjohvbh and prescription medicines only as told by your health care provider. ? If you were prescribed an antiviral medicine, take it as told by your health care provider. Do not stop taking the antiviral even if you start to feel better. ? Be aware of when antibiotics are needed and when they are not needed. Antibiotics do not treat viruses. You may get an antibiotic if your health care provider thinks that you may have, or are at risk for, a bacterial infection and you have a viral infection. ? Do not ask for an antibiotic prescription if you have been diagnosed with a viral illness. Antibiotics will not make your illness go away faster. ? Frequently taking antibiotics when they are not needed can lead to antibiotic resistance. When this develops, the medicine no longer works against the bacteria that it normally fights. General instructions ? Drink enough fluids to keep your urine pale yellow. ? Rest as much as possible. ? Return to your normal activities as told by your health care provider. Ask your health care provider what activities are safe for you. ? Keep all follow-up visits as told by your health care provider. This is important. How is this prevented? To reduce your risk of viral illness: ? Wash your hands often with soap and water for at least 20 seconds. If soap and water are (more content not included)... Normal [facility] ED Patient Summaryon 024 ED Patient Summary [address] [address] Patient Discharge Instructions Person Information Name: JOANNE MCGEE Age: 23 Years Arrival Date: 04/25/2023 14:32:46 Discharge Diagnosis: 1:Viral illness Primary Care Physician: BRAEDEN RAI CNP Provider Information Primary Provider: Viet Lovelace DO Advanced Sleep Manager:None The exam and treatment you received in the Emergency Department were for an urgent problem and are not intended as complete care. It is important that you follow up with a doctor, nurse practitioner, or physician?s graphic design assistant for ongoing care. If your symptoms become worse or you do not improve as expected and you are unable to reach your usual health care provider, you should return to the Emergency Department. We are available 24 hours a day. ARELY JOANNE RUIZ has been given the following list of patient education materials, prescriptions and follow-up instructions: Follow-up Instructions: With: Address: When: BRAEDEN RAI [address] [place] [address] [phone] Business (1) In 3 days 04/28/2023 In the event that this physician does not participate in your insurance network, please consult with your insurance company to find a nearby participating provider. Patient Education Materials: Viral Illness, Adult A MESSAGE TO ALL PATIENTS REGARDING OPIOIDS PRESCRIPTION OPIOIDS: WHAT YOU NEED TO KNOW Prescription opioids can be used to help relieve iaufagfo-ea-ckknzo pain and are often prescribed following a surgery or injury, or for certain health conditions. These medications can be an important part of the treatment but also come with serious risks. It is important to work with your healthcare provider to make sure you are getting the safest, most effective care. WHAT ARE THE RISKS AND SIDE EFFECTS OF OPIOID USE? Prescription opioids carry serious risks of addiction and overdose, especially with prolonged use. An opioid overdose, often marked by slowed breathing, can cause sudden . The use of prescription opioids can have a number of side effects as well, even when taken as directed: ? Tolerance?meaning you might need to take more of the medication for the same pain relief ? Physical dependence?meaning you have symptoms of withdrawal when a medication is stopped ? Increased sensitivity to pain ? Constipation ? Nausea, vomiting, and dry mouth ? Sleepiness and dizziness ? Confusion ? Depression ? Low levels of testosterone that can result in lower sex drive, energy, and strength ? Itching and sweating RISKS ARE GREATER WITH: ? History of drug misuse, substance use disorder, or overdose ? Mental health conditions (such as depression or anxiety) ? Sleep apnea ? Older age (65 years and older) ? Avoid alcohol while taking prescription opioids. Also, unless specifically advised by your health care provider, medications to avoid include: ? Benzodiazepines (such as Xanax or Valium) ? Muscle relaxants (such as Soma or Flexeril) ? Hypnotics (such as Ambien or Lunesta) ? Other prescription opioids KNOW YOUR OPTIONS Talk to your health care provider about ways to manage your pain that don?t involve prescription opioids. Some of these options may actually work better and have fewer risks and side effects. Options may include: ? Pain relievers such as acetaminophen, ibuprofen, and naproxen ? Some medication that are also used for depression or seizures ? Physical therapy and exercise ? Cognitive behavioral therapy, a psychological, goal-directed approach, in which patients learn how to modify physical, behavioral, and emotional triggers of pain and stress. IF YOU ARE PRESCRIBED OPIOIDS FOR PAIN: ? Never take opioids in greater amounts or more often than prescribed. ? Follow up with your primary health care provider. o Work together to create a plan on how to manage your pain. o Talk about ways to help manage your pain that don?t involve prescription opioids. o Talk about any and all concerns and side effects. ? Help prevent misuse and abuse o Never sell or share prescription opioids. o Never use another person?s prescription opioids. ? Store prescription opioids in a secure place and out of reach of others (this may include visitors, children, friends, and family). ? Safely dispose of unused prescription opioids: Find your community drug take-back program or your pharmacy mail-back program, or flush them down the toilet, following guidance from the Food and Drug Administration (www.fda.gov/Drugs/Res ourcesForYou). ? Visit www.cdc.gov/drugoverdo se to learn about the risks of opioids abuse and overdose. ? If you believe you may be struggling with addiction, tell your health disabilities caregiver and ask for guidance or call [facility]S National Helpline at 8-576-110-GURA. v Source: [place] Department of Health and (more content not included)... Normal [facility] HEMATOLOGYOrdered By: SYSTEM SYSTEM on 04-25-2023 Basophils/100 WBC (Bld) 0.8 % Normal 0.0 - 2.0 % Remisol Heme Basophils/Leukocytes Auto (Bld) [Pure # fraction] 0.1 E9/L Normal 0.0 - 0.2 E9/L Remisol Heme Eosinophils (Bld) [#/Vol] 0.2 E9/L Normal 0.0 - 0.5 E9/L Remisol Heme Eosinophils/100 WBC (Bld) 2.7 % Normal 0.0 - 8.0 % Remisol Heme Erythrocyte distribution width (RBC) [Ratio] 13.4 % Normal 10.9 - 14.2 % Remisol Heme Hematocrit (Bld) [Volume fraction] 43.6 % Normal 34.0 - 46.0 % Remisol Heme Hemoglobin (Bld) [Mass/Vol] 15.1 g/dL Normal 12.0 - 16.0 gm/dL Remisol Heme Lymphocytes (Bld) [#/Vol] 1.7 E9/L Normal 1.0 - 4.0 E9/L Remisol Heme Lymphocytes/100 WBC (Bld) 24.6 % Normal 14.0 - 50.0 % Remisol Heme MCH (RBC) [Entitic mass] 30.1 pg Normal 27.0 - 34.0 pg Remisol Heme MCHC (RBC) [Mass/Vol] 34.7 g/dL Normal 31.4 - 36.0 gm/dL Remisol Heme MCV (RBC) [Entitic vol] 86.9 fL Normal 80.0 - 100.0 fL Remisol Heme Monocytes (Bld) [#/Vol] 0.5 E9/L Normal 0.2 - 1.0 E9/L Remisol Heme Monocytes/100 WBC (Bld) 6.8 % Normal 4.0 - 14.0 % Remisol Heme Neutrophils (Bld) [#/Vol] 4.5 E9/L Normal 2.0 - 7.5 E9/L Remisol Heme Neutrophils/100 WBC (Bld) 65.1 % Normal 36.0 - 75.0 % Remisol Heme Platelet 155.0 E9/L Normal 150.0 - 500.0 E9/L Rem[facility] Heme Platelet mean volume (Bld) [Entitic vol] 9.6 fL Normal 6.4 - 10.8 fL Remisol Heme RBC (Bld) [#/Vol] 5.0 E12/L Normal 4.3 - 5.9 E12/L [facility] Heme WBC corrected for nucl RBC Auto (Bld) [#/Vol] 6.9 E9/L Normal 4.0 - 11.0 E9/L Rem[facility] Heme Hep Func Panelon 04-25-2023 Albumin [Mass/Vol] 4.8 g/dL Normal 3.3-5.0 [facility] Comment on above: Performed By: #### 1 [id number], 7288660, 5502849, 8883583, 6638031, 3335716 ####[address] [place] [address] Albumin/Globulin (S) [Mass conc ratio] 2.0 Normal 1.1-2.2 [facility] Comment on above: Performed By: #### 1 [id number], 2133652, 8339136, 4649707, 2309999, 1582530 ####[address] [address] ALP [Catalytic activity/Vol] 39 Int._Unit/L Normal 21-98 [facility] Comment on above: Performed By: #### 1 5900681, 4831122, 7510475, 5256989, 0132542, 1043774 ####[address] [address] ALT No additional P-5'-P [Catalytic activity/Vol] 12 Int._Unit/L Normal 6-46 [facility] Comment on above: Performed By: #### 1 8142407, 8181704, 3770235, 8856165, 5688506, 3457300 ####[address] [address] AST [Catalytic activity/Vol] 13 Int._Unit/L Normal 5-43 [facility] Comment on above: Performed By: #### 1 3369567, 5710761, 7492367, 5150481, 8149705, 5906140 ####[address] [address] Bilirubin [Mass/Vol] 0.6 mg/dL Normal 0.0-1.1 [facility] Comment on above: Performed By: #### 1 5484465, 2056702, 8959112, 1411291, 0469836, 3014481 ####[address] [address] Bilirubin.direct [Mass/Vol] 0.1 mg/dL Normal 0.0-0.4 [facility] Comment on above: Performed By: #### 1 6315337, 4891208, 4552797, 1719785, 6708495, 5614917 ####[address] [place] [address] Bilirubin.indirect [Mass or moles/Vol] 0.5 mg/dL Normal 0.1-0.9 [facility] Comment on above: Performed By: #### 1 5744337, 5812229, 9087338, 8399247, 1191157, 2190944 ####[address] [address] Globulin (S) [Mass/Vol] 2.4 g/dL Normal 1.4-4.0 [facility] Comment on above: Performed By: #### 1 3073029, 5263629, 5493885, 1242863, 4703847, 0430969 ####[address] [address] Protein [Mass/Vol] 7.2 g/dL Normal 6.0-7.8 [facility] Comment on above: Performed By: #### 1 1942141, 7876222, 9184739, 3494983, 6944220, 5912397 ####[address] [address] Lactic Acidon 04-25-2023 Lactic Acid Lvl 1.0 mmol/L Normal 0.5-2.2 [facility] Comment on above: Performed By: #### 1 5604267, 0216286, 5158559, 9226211, 8228152, 6870430 ####[address] [place] [address] Lipase Levelon 04-25-2023 Lipase [Catalytic activity/Vol] 21 U/L Normal 13-58 [facility] Comment on above: Performed By: #### 1 4760139, 0870149, 2468822, 5980727, 1961725, 1212255 ####[address] [address] SEROLOGYOrdered By: Tri Mancuso on 04-25-2023 HCG.beta subunit (U) [Moles/Vol] Negative Normal [facility] Man Sero U BetaHcg Qualon 04-25-2023 HCG.beta subunit (U) [Moles/Vol] Negative Normal [facility] Comment on above: Performed By: #### 2 1185299, 43471156 ####[facility] [address] [place] [address] UA With Cult Reflexon 2023 Bilirubin Ql (U) Negative Normal Negative [facility] Comment on above: Performed By: #### 2 3610070, 61966438 ####[facility] [address] [place] [address] Clarity (U) CLEAR Normal Clear [facility] Comment on above: Performed By: #### 2 3193223, 27661107 ####[facility] [address] [place] [address] Color (U) YELLOW Normal Yellow [facility] Comment on above: Performed By: #### 2 4245429, 40911029 ####[facility] [address] [place] [address] Epithelial cells.squamous LM.HPF (Urine sed) [#/Area] 0-2 Normal 0-2 [facility] Comment on above: Performed By: #### 2 9026264, 23809679 ####[facility] [address] [place] [address] Glucose Test strip (U) [Mass/Vol] Negative Normal Negative [facility] Comment on above: Performed By: #### 2 4997829, 45480309 ####[facility] [address] [place] [address] Hemoglobin Ql (U) Negative Normal Negative [facility] Comment on above: Performed By: #### 2 5364311, 62523589 ####[facility] [address] [place] [address] Ketones (U) [Mass/Vol] Negative Normal Negative [facility] Comment on above: Performed By: #### 2 3962763, 11816461 ####[facility] [address] [place] [address] [place].plasma/Lithiu m.RBC (Bld) [Mass ratio] 0-3 Normal 0-3 [facility] Comment on above: Performed By: #### 2 4478523, 19283009 ####[facility] [address] [place] [address] Nitrite Ql (U) Negative Normal Negative [facility] Comment on above: Performed By: #### 2 4964827, 24424032 ####[address] [address] pH (U) 5.5 [pH] Invalid Interpretation Code 5.0-9.0 [facility] Comment on above: Performed By: #### 2 1406591, 80514481 ####[address] [address] Protein (U) [Mass/Vol] Negative Normal Negative [facility] Comment on above: Performed By: #### 2 0821356, 47724469 ####[address] [address] Specific gravity (U) [Rel density] <=1.005 Invalid Interpretation Code 1.005-1.030 [facility] Comment on above: Performed By: #### 2 4816883, 63809496 ####[facility] [address] [place] [address] Type of Urine collection method Clean Catch Normal [facility] Comment on above: Performed By: #### 2 7674441, 30786184 ####[facility] [address] [place] [address] Urobilinogen Qn (U) 0.2 {Fahad'U}/dL Normal 0.0-1.0 [facility] Comment on above: Performed By: #### 2 3062675, 83112331 ####[address] [address] WBC Auto Ql (U) Negative Normal Negative [facility] Comment on above: Performed By: #### 2 9585171, 42902418 ####[facility] [address] [place] [address] WBC LM.HPF (Urine sed) [#/Area] 0-5 Normal 0-5 [facility] Comment on above: Performed By: #### 2 0926774, 76832788 ####[facility] [address] [place] [address] URINALYSISOrdered By: Franchesca Mancuso on 04-25-2023 Bilirubin Ql (U) Negative (04/25/23 3:18 PM) Normal Negative [facility] UA Auto SS Clarity (U) Clear (04/25/23 3:18 PM) Normal Clear [facility] UA Auto SS Color (U) Yellow (04/25/23 3:18 PM) Normal Yellow [facility] UA Auto SS Epithelial cells.squamous LM.HPF (Urine sed) [#/Area] 0-2 /HPF Normal 0-2/HPF [facility] UA Aut o SS Glucose Test strip (U) [Mass/Vol] Negative (04/25/23 3:18 PM) Normal Negative [facility] UA Auto SS Hemoglobin Ql (U) Negative (04/25/23 3:18 PM) Normal Negative [facility] UA Auto SS Ketones (U) [Mass/Vol] Negative (04/25/23 3:18 PM) Normal Negative [facility] UA Auto SS [place].plasma/Lithiu m.RBC (Bld) [Mass ratio] 0-3 /HPF Normal 0-3/HPF [facility] UA Auto SS Nitrite Ql (U) Negative (04/25/23 3:18 PM) Normal Negative [facility] UA Auto SS pH (U) 5.5 *NA* (04/25/23 3:18 PM) Invalid Interpretation Code 5.0 - 9.0 [facility] UA Auto SS Protein (U) [Mass/Vol] Negative (04/25/23 3:18 PM) Normal Negative [facility] UA Auto SS Specific gravity (U) [Rel density] <=1.005 *NA* (04/25/23 3:18 PM) Invalid Interpretation Code 1.005 - 1.030 [facility] UA Auto SS UA Spec Desc Clean Catch (04/25/23 3:18 PM) Normal [facility] UA Auto SS Urobilinogen Qn (U) 0.0829358 {Fahad'U}/dL Normal 0.0 - 1.0 EU/dL [facility] UA Auto SS WBC Auto Ql (U) Negative (04/25/23 3:18 PM) Normal Negative [facility] UA Auto SS WBC LM.HPF (Urine sed) [#/Area] 0-5 /HPF Normal 0-5/HPF [facility] UA Auto SS US Appendixon 04-25-2023 US Appendix Exam Date/Time: 04/25/2023 16:05 EST Reason for Exam: Abdominal pain Report IMPRESSION: THE APPENDIX IS NOT VISUALIZED. NO FINDINGS OF APPENDICITIS IDENTIFIED BY ULTRASOUND. EXAMINATION: US Appendix HISTORY: Right lower quadrant pain and fever. Nausea and vomiting. COMPARISON: Ultrasound 01/20/[address] abdomen pelvis 06/08/2020 TECHNIQUE: Ultrasound evaluation was performed of the right lower quadrant. FINDINGS: The appendix is not definitively visualized. No right lower quadrant inflammation, free fluid, or loculated fluid collection identified. Ordering Provider: Johanne So FINAL REPORT Dictated: 04/25/2023 4:14 pm Ag Geronimo DO Signed (Electronic Signature): 04/25/2023 4:14 pm Signed by: Ag Geronimo DO Transcribed by: KELLY Technologist: KIM Claire [facility] US Pelvis Non-OB Completeon 04-25-2023 US Pelvis Non-OB Complete Exam Date/Time: 04/25/2023 17:58 EST Reason for Exam: Ovarian cyst Report [facility] [phone] IMPRESSION: 1.6 x 1.2 x 1.3 cm simple left ovarian cyst. CLINICAL HISTORY: Ovarian cyst right pelvic pain for 2 days with nausea, vomiting, fever. History of removal of 6 cm left ovarian cyst. COMPARISONS: PELVIC SONOGRAPHY, JULY 12, 2019 TECHNICAL FACTORS: Transabdominal and transvaginal sonography with transvaginal imaging was obtained to better assess pelvic anatomy. FINDINGS: Uterus: Normal in size, shape, and echogenicity. Endometrium: Normal in appearance. Right ovary: Normal in size, shape, and echogenicity. Color flow and Doppler without anomaly. Left ovary: Normal in size, and shape. 1.6 x 1.2 x 1.3 cm simple left ovarian cyst. Color flow and Doppler without anomaly. Free fluid: None Adnexal masses: None The uterus measurements and an estimated volume are: Uterus Length: 5.9 cm Uterus Width: 3.3 cm Uterus Height: 2.5 cm Uterus Volume: 25.3 cm3 The right ovary measurements and an estimated volume are: Right Ovary Length: 2.2 cm Right Ovary Width: 2.0 cm Right Ovary Height: 1.5 cm Right Ovary Volume: 3.4 cm3 The left ovary measurements and an estimated volume are: Report Left Ovary Length: 2.2 cm Left Ovary Width: 1.9 cm Left Ovary Height: 1.8 cm Left Ovary Volume: 3.8 cm3 Ordering Provider: Johanne So FINAL REPORT Dictated: 04/25/2023 6:04 pm Magno Mooney MD Signed (Electronic Signature): 04/25/2023 6:04 pm Signed by: Magno Mooney MD Transcribed by: KELLY Technologist: KIM Technical Comments Transabdominal Ultrasound Performed Normal [facility] eGFRon 04-25-2023 eGFR 93 mL/min/1.73 m2 Normal >=59 [facility] Comment on above: Order Comment: Order added by Discern Expert. Performed By: #### 1 [id number], 0555432, 8952787, 2242116, 3538579, 5335050 ####[facility] [address] [place] [address] Progress Noteon 04-14-2023 Biochemical Engineer Authentication Interface Message Text History of Presenting Illness: Joanne Mcgee is a 23 y.o. female who is being seen today for a follow up service at the request of ALLEN Gutierrez for our opinion or medical advice regarding an palpitations. She is brought in by her mother. I first met Joanne in 2019 when she had presented with chest pain. On echocardiogram, there was question of an anomalous right coronary artery; however, a chest CT was reassuring and demonstrated normal coronary anatomy. Her symptoms were felt to be non cardiac at that time. Joanne returns today with concerns of chest fluttering and palpitations for the past month. This occurs daily and lasts for about an hour. She is unsure of a particular trigger. The sensation starts suddenly and spontaneously gradually resolves. She sometimes has associated nausea. She has not had syncope and denies recent syncope. She was started on Propranolol by her primary care team which seems to have helped. Non-Cardiac ROS: GENERAL: She had COVID 19 a month ago. HEENT: No ear infection, or eye redness/discharge RESPIRATORY: Negative for cough, wheezing, or shortness of breath MUSCULOSKELETAL: Negative for joint or muscle pain or swelling SKIN: Negative for lesions or rashes All other systems reviewed and are negative except as detailed above. Past Medical/Surgical History: Pectus excavatum. She had adenoids and tonsils removed at 10 years of age. Medications: Current Outpatient Medications Medication Sig Dispense Refill propranolol (INDERAL) 40 MG tablet Take by mouth 2 times daily SERTRALINE HCL PO Take by mouth medroxyPROGESTERone Acetate (DEPO-SUBQ PROVERA 104) 104 MG/0.65ML injection Inject 0.65 mL (104 mg) into the skin once bisacodyl (DULCOLAX) 5 MG EC tablet Take as instructed for clean out (Patient not taking: Reported on 04/14/2023) RA LAXATIVE 5 MG EC tablet take as directed for CLEAN OUT (Patient not taking: Reported on 04/14/2023) magnesium citrate SOLN oral solution Take 10 oz as instructed for cleanout (Patient not taking: Reported on 04/14/2023) RA MAGNESIUM CITRATE 1.745 GM/30ML SOLN solution DRINK 1 ENTIRE BOTTLE as directed for CLEAN OUT (Patient not taking: Reported on 04/14/2023) polyethylene glycol (MIRALAX;GLYCOLAX) 17 GM/SCOOP powder As instructed for clean out (Patient not taking: Reported on 04/14/2023) polyethylene glycol (MIRALAX;GLYCOLAX) 17 GM/SCOOP powder USE DIRECTED FOR CLEAN OUT (Patient not taking: Reported on 04/14/2023) Wheat Dextrin (BENEFIBER) Take by mouth (Patient not taking: Reported on 04/14/2023) Acetaminophen (TYLENOL CHILDRENS PO) Take by mouth (Patient not taking: Reported on 04/14/2023) No current facility-administered medications for this visit. Allergies No Known Allergies Family History: Mom had a murmur when she was younger The family history is negative for congenital heart disease, sudden unexplained , arrhythmia, long QT syndrome, unexplained drowning, aneurysms, heart transplantation or pacemaker requirement at a young age on the maternal or paternal side of the family. Social History: In college Physical Examination: BP 113/75 (BP Site: Right Arm, Patient Position: Sitting, BP Cuff Size: Adult) Pulse 77 Resp 16 Ht 162.5 cm Wt 67.6 kg SpO2 97% BMI 25.60 kg/m GENERAL APPEARANCE: alert, in no distress SKIN: Acyanotic, no rash SKEL: Mild pectus excavatum HEENT: Normal sclera, moist mucus membranes. PULM: Lungs are clear to auscultation and there is no grunting, flaring or retracting CARDIAC: The precordium is normally active. No heave or thrill. The rate was regular with normal S1 and a physiologically splitting S2. No systolic, diastolic, or continuous murmurs in the supine, sitting, standing, positions. No clicks, rub or gallop rhythm. Normal heart rate variability with position. ABDOMEN: Soft, non-tender with liver edge not palpable below the right costal margin EXTREMITIES: Normal upper and lower extremity pulses with no brachio-femoral delay; normal perfusion. No clubbing or peripheral edema Studies: EKG (05/07/2018): [facility] ECG- Normal sinus rhythm. No pre-excitation, or ectopy. Right ventricular hypertrophy Echocardiogram (2019): The right coronary artery appears to originate from the non coronary cusp. It does not have an acute take off, interarterial or an intramural course. There is mild compression of the right ventricle by the pectus excavatum. This does not appear to affect the right ventricular function. Normal biventricular systolic function. EKG 04/14/23: Sinus rhythm. [place] axis, incomplete right bundle branch block Chest CT 2019: Normal coronary anatomy. Discussion: Joanne is a 23 y.o. presenting with palpitations. Her clinical exam today is reassuring. Her ECG today shows sinus rhythm at 65 bpm with no pre-excitation. We have placed a Holter monitor to assess her heart rate variation during the next 24 hours. She has also b (more content not included)... Normal [facility] C Urineon 03-29-2023 Bacteria identified Cx Nom (U) Microbiology PROCEDURE: Urine Culture [R1] SOURCE: U Random BODY SITE: COLLECTED DATE/TIME: 03/27/2023 08:54 EST RECEIVED DATE/TIME: 03/27/2023 09:40 EST START DATE/TIME: 03/27/2023 09:40 EST FREE TEXT SOURCE: FREDI ALFREDO, BRAEDEN RAI CNP, BRAEDEN Chance FINAL REPORTS Final Report [] Verified Date/Time: 03/29/2023 10:54 EST 2,000 cfu/ml Mixed skin contaminants Performing Locations R1: This test was performed at: [facility], [address] [place] [address], [id number] , [place], Normal [facility] Comment on above: Performed By: #### 2 066635, [id number] ####[address] [address] VICKIE w/Reflex if POSon 2023 Nuclear Ab Ql (S) Negative Invalid Interpretation Code Negative [facility] Comment on above: Result Comment: Perf ormed at: [facility] [address] [id number] PhD Deondre Holland Performed By: #### 2 659167, 24797898, 3643465, 31548541, 77008804, 5192137 ####[address] [address] CBC w/Indiceson 03-27-2023 RBC morphology finding Nom (Bld) NORMAL Invalid Interpretation Code [facility] Comment on above: Performed By: #### 2 005255, 13647475, 7268630, 69386083, 24366814, 8514664 ####[address] [place] [address] Erythrocyte distribution width (RBC) [Ratio] 13.2 % Normal 10.9-14.2 [facility] Comment on above: Performed By: #### 2 945475, 77028420, 7372621, 25331870, 89513554, 7719859 ####[address] [address] Hematocrit (Bld) [Volume fraction] 41.0 % Normal 34.0-46.0 [facility] Comment on above: Performed By: #### 2 673929, 49345774, 5473327, 10761753, 49523562, 1120519 ####[address] [address] Hemoglobin (Bld) [Mass/Vol] 14.1 g/dL Normal 12.0-16.0 [facility] Comment on above: Performed By: #### 2 987930, 56252056, 5885360, 64914210, 64854645, 5615388 ####[address] [address] MCH (RBC) [Entitic mass] 29.9 pg Normal 27.0-34.0 [facility] Comment on above: Performed By: #### 2 534557, 53826910, 9892782, 82685410, 62537379, 8025900 ####[address] [address] MCHC (RBC) [Mass/Vol] 34.8 g/dL Normal 31.4-36.0 [facility] Comment on above: Performed By: #### 2 962677, 73892524, 1842776, 71178641, 63092366, 3188869 ####[address] [address] MCV (RBC) [Entitic vol] 86.0 fL Normal 80.0-100.0 [facility] Comment on above: Performed By: #### 2 407856, 80411566, 1108808, 48002290, 49769863, 0315768 ####[address] [place] [address] Platelet 188.0 E9/L Normal 150.0-500.0 [facility] Comment on above: Performed By: #### 2 505188, 44527864, 9484128, 23901868, 05571773, 4685755 ####[address] [place] [address] Platelet mean volume (Bld) [Entitic vol] 9.7 fL Normal 6.4-10.8 [facility] Comment on above: Performed By: #### 2 201951, 14831430, 3121791, 20138048, 26286826, 1746846 ####[facility] [address] [place] [address] RBC 4.7 E12/L Normal 4.3-5.9 [facility] Comment on above: Performed By: #### 2 591760, 62258940, 1335770, 30629681, 44346566, 9728708 ####[facility] [address] [place] [address] WBC 6.2 E9/L Normal 4.0-11.0 [facility] Comment on above: Performed By: #### 2 723532, 17244249, 2842569, 29221121, 31601961, 5401623 ####[facility] [address] [place] [address] CHEMISTRYOrdered By: SYSTEM SYSTEM on 03-27-2023 Albumin [Mass/Vol] 4.5 g/dL Normal 3.3 - 5.0 gm/dL Remisol Chem Albumin/Globulin [Mass ratio] 2.1 {ratio} Normal 1.1 - 2.2 Rem[facility] Chem Alk Phos 42 [iU]/d Normal 21 - 98 Int._Unit/L Remisol Chem ALT 13 [iU]/d Normal 6 - 46 Int._Unit/L Remisol Chem Anion gap [Moles/Vol] 11 mmol/L Normal 6 - 16 mEq/L R emisol Chem AST 12 [iU]/d Normal 5 - 43 Int._Unit/L [facility] Chem Bili Total 0.8 mg/dL Normal 0.0 - 1.1 mg/dL [facility] Calcium [Mass/Vol] 9.4 mg/dL Normal 8.9 - 11. 1 mg/dL [facility] Chloride [Moles/Vol] 106 mmol/L Normal 101 - 1 11 mmol/L [facility] Chem CO2 [Moles/Vol] 26 mmol/L Normal 21 - 31 mmol/L [facility] Chem Creatinine [Mass/Vol] 1.0 mg/dL Normal 0.5 - 1.3 mg/dL [facility] Chem CRP mg/dL Normal <=1.9mg/dL [facility] Chem eGFR 82 mL/min/1.73 m2 Normal >=59mL/min /1 .73 m2 [facility] Globulin (S) [Mass/Vol] 2.1 g/dL Normal 1.4 - 4.0 gm/dL [facility] Glucose [Mass/Vol] 90 mg/dL Normal 55 - 199 mg/dL [facility] Potassium [Moles/Vol] 4.1 mmol/L Normal 3.5 - 5.3 mmol/L [facility] Chem Protein [Mass/Vol] 6.6 g/dL Normal 6.0 - 7.8 gm/dL [facility] Chem Sodium [Moles/Vol] 139 mmol/L Normal 135 - 145 mmol/L [facility] Chem Urea nitrogen [Mass/Vol] 10 mg/dL Normal 5 - 21 mg/dL [facility] Chem Urea nitrogen/Creatinine [Mass ratio] 10 mg/mg Normal 10 - 20 [facility] Chem CMPon 03-27-2023 Albumin [Mass/Vol] 4.5 g/dL Normal 3.3-5.0 [facility] Comment on above: Performed By: #### 2 944776, 57510100, 0975343, 17701397, 24439142, 2322221 ####[facility] [address] [place] [address] Albumin/Globulin [Mass ratio] 2.1 {ratio} Normal 1.1-2.2 [facility] Comment on above: Performed By: #### 2 280209, 92375439, 7472282, 70701338, 54281512, 4528489 ####[facility] [address] [place] [address] Alk Phos 42 Int._Unit/L Normal 21-98 [facility] Comment on above: Performed By: #### 2 377828, 39764976, 2528009, 70926775, 02091630, 4656176 ####[facility] [address] [place] [address] ALT 13 Int._Unit/L Normal 6-46 [facility] Comment on above: Performed By: #### 2 245522, 51628872, 7364070, 70112866, 09650831, 0460085 ####[facility] [address] [place] [address] AST 12 Int._Unit/L Normal 5-43 [facility] Comment on above: Performed By: #### 2 702025, 23484837, 8940748, 80745004, 71226415, 6142033 ####[address] [place] [address] Bili Total 0.8 mg/dL Normal 0.0-1.1 [facility] Comment on above: Performed By: #### 2 522264, 39789482, 9029195, 20557270, 87402171, 3942961 ####[address] [address] Globulin (S) [Mass/Vol] 2.1 g/dL Normal 1.4-4.0 [facility] Comment on above: Performed By: #### 2 459510, 23749218, 4616595, 27769868, 88559544, 6352364 ####[address] [place] [address] Protein [Mass/Vol] 6.6 g/dL Normal 6.0-7.8 [facility] Comment on above: Performed By: #### 2 004781, 48082528, 4293252, 39978348, 65079753, 4721874 ####[facility] [address] [place] [address] Anion gap [Moles/Vol] 11 mmol/L Normal 6-16 [facility] Comment on above: Performed By: #### 2 349413, 57140415, 9390291, 61900576, 89956493, 3232317 ####[address] [place] [address] BUN/Creat Ratio 10 No Units Normal 10-20 [facility] Comment on above: Performed By: #### 2 775764, 25580988, 7825299, 71032504, 27941281, 5336358 ####[facility] [address] [place] [address] Calcium [Mass/Vol] 9.4 mg/dL Normal 8.9-11.1 [facility] Comment on above: Performed By: #### 2 115057, 77513772, 4045550, 57937348, 62322349, 5945056 ####[facility] [address] [place] [address] Chloride [Moles/Vol] 106 mmol/L Normal 101-111 [facility] Comment on above: Performed By: #### 2 765878, 30863613, 3684490, 90035190, 71143222, 5688712 ####[facility] [address] [place] [address] CO2 [Moles/Vol] 26 mmol/L Normal 21-31 [facility] Comment on above: Performed By: #### 2 904001, 31551352, 8605117, 98514848, 83852009, 6439298 ####[facility] [address] [place] [address] Creatinine [Mass/Vol] 1.0 mg/dL Normal 0.5-1.3 [facility] Comment on above: Performed By: #### 2 839709, 65846356, 8253199, 57887242, 31209270, 1164503 ####[facility] [address] [place] [address] Glucose [Mass/Vol] 90 mg/dL Normal 55-199 [facility] Comment on above: Performed By: #### 2 110824, 40558224, 9755152, 25819043, 46217368, 0594876 ####[facility] [address] [place] [address] Potassium [Moles/Vol] 4.1 mmol/L Normal 3.5-5.3 [facility] Comment on above: Performed By: #### 2 617823, 55075479, 7973691, 79346716, 34574180, 3214701 ####[facility] [address] [place] [address] Sodium [Moles/Vol] 139 mmol/L Normal 135-145 [facility] Comment on above: Performed By: #### 2 473715, 41236050, 0439252, 94811339, 26068008, 4394175 ####[facility] [address] [place] [address] Urea nitrogen [Mass/Vol] 10 mg/dL Normal 5-21 [facility] Comment on above: Performed By: #### 2 513070, 27836781, 3403199, 33999076, 25902199, 0525745 ####[facility] [address] [place] [address] CRPon 03-27-2023 CRP [Mass/Vol] mg/L Normal <=1.9 [facility] Comment on above: Performed By: #### 2 371644, 36472642, 5014026, 83959015, 11853019, 3398738 ####[facility] [address] [place] [address] Consent for Treatmenton Consent for Treatment [id number]#1.0 0TIFF Normal [facility] HEMATOLOGYOrdered By: SYSTEM SYSTEM on 03-27-2023 Erythrocyte distribution width (RBC) [Ratio] 13.2 % Normal 10.9 - 14.2 % Rem[facility] Heme Hematocrit (Bld) [Volume fraction] 41.0 % Normal 34.0 - 46.0 % [facility] Heme Hemoglobin (Bld) [Mass/Vol] 14.1 g/dL Normal 12.0 - 16.0 gm/dL [facility] MCH (RBC) [Entitic mass] 29.9 pg Normal 27.0 - 34.0 pg Rem[facility] Heme MCHC (RBC) [Mass/Vol] 34.8 g/dL Normal 31.4 - 36.0 gm/dL [facility] MCV (RBC) [Entitic vol] 86.0 fL Normal 80.0 - 100.0 fL [facility] Platelet 188.0 E9/L Normal 150.0 - 500.0 E9/L [facility] Platelet mean volume (Bld) [Entitic vol] 9.7 fL Normal 6.4 - 10.8 fL [facility] Heme RBC 4.7 E12/L Normal 4.3 - 5.9 E12/L [facility] WBC 6.2 E9/L Normal 4.0 - 11.0 E9/L [facility] HEMATOLOGYOrdered By: Doron Mccann on 03-27-2023 ESR (Bld) [Velocity] 11 mm/h Normal 0 - 34 mm/hr [facility] HemeAutoSS RBC morphology finding Nom (Bld) NORMAL Invalid Interpretation Code [facility] Heme Physician Orderon 03-27-2023 Physician Order [id number]#1. 00TIFF Normal [facility] Physician Order [id number]#1. 00TIFF Normal [facility] Sed Rate Automatedon 024 ESR (Bld) [Velocity] 11 mm/h Normal 0-34 [facility] Comment on above: Performed By: #### 2 167862, 28312774, 2660853, 33117175, 36520405, 1615783 ####[facility] [address] [place] [address] UA With Cult Reflexon 2023 Bacteria LM Ql (Urine sed) TRACE Normal Trace [facility] Comment on above: Performed By: #### 2 805612, 33462478 ####[facility] [address] [place] [address] Bilirubin Ql (U) Negative Normal Negative [facility] Comment on above: Performed By: #### 2 150170, 91249271 ####[facility] [address] [place] [address] Clarity (U) CLEAR Normal Clear [facility] Comment on above: Performed By: #### 2 467067, 36670459 ####[facility] [address] [place] [address] Color (U) YELLOW Normal Yellow [facility] Comment on above: Performed By: #### 2 960696, 06580525 ####[facility] [address] [place] [address] Crystals LM Ql (Urine sed) Present Normal [facility] Comment on above: Performed By: #### 2 322103, 48874825 ####[address] [address] Epithelial cells.squamous LM.HPF (Urine sed) [#/Area] 0-2 Normal 0-2 [facility] Comment on above: Performed By: #### 2 886420, 85296944 ####[address] Glucose Test strip (U) [Mass/Vol] Negative Normal Negative [facility] Comment on above: Performed By: #### 2 456312, 62990079 ####[facility] [address] [place] [address] Hemoglobin Ql (U) Negative Normal Negative [facility] Comment on above: Performed By: #### 2 147809, 42081299 ####[address] [address] Ketones (U) [Mass/Vol] Negative Normal Negative [facility] Comment on above: Performed By: #### 2 268894, 76011631 ####[address] [address] [place].plasma/Lithiu m.RBC (Bld) [Mass ratio] 0-3 Normal 0-3 [facility] Comment on above: Performed By: #### 2 554258, 01422157 ####[address] [address] Mucus Ql (Urine sed) 1+ Normal [facility] Comment on above: Performed By: #### 2 919541, 66041329 ####[address] [address] Nitrite Ql (U) Negative Normal Negative [facility] Comment on above: Performed By: #### 2 774655, 09377060 ####[address] pH (U) 7.0 [pH] Invalid Interpretation Code 5.0-9.0 [facility] Comment on above: Performed By: #### 2 238755, 20245118 ####[place] [address] Protein (U) [Mass/Vol] Negative Normal Negative [facility] Comment on above: Performed By: #### 2 002670, 66369042 ####[place] [address] Specific gravity (U) [Rel density] 1.015 Invalid Interpretation Code 1.005-1.030 [facility] Comment on above: Performed By: #### 2 555550, 20618138 ####[place] [address] Type of Urine collection method Clean Catch Normal [facility] Comment on above: Performed By: #### 2 733792, 23930557 ####[address] Urobilinogen Qn (U) 0.2 {Fahad'U}/dL Normal 0.0-1.0 [facility] Comment on above: Performed By: #### 2 642050, 86030122 ####[address] WBC Auto Ql (U) 2+ Abnormal Negative [facility] Comment on above: Performed By: #### 2 850222, 05544881 ####[address] WBC LM.HPF (Urine sed) [#/Area] 0-5 Normal 0-5 [facility] Comment on above: Performed By: #### 2 302068, 37704592 ####[facility] [address] [place] [address] URINALYSISOrdered By: Lupillo Cedillo on 03-27-2023 Bacteria LM Ql (Urine sed) Trace /HPF Normal Trace/HPF [facility] UA Auto SS Bilirubin Ql (U) Negative (03/27/23 8:54 AM) Normal Negative [facility] UA Auto SS Clarity (U) Clear (03/27/23 8:54 AM) Normal Clear [facility] UA Auto SS Color (U) Yellow (03/27/23 8:54 AM) Normal Yellow [facility] UA Auto SS Crystals LM Ql (Urine sed) Present (03/27/23 8:54 AM) Normal [facility] UA Auto SS Epithelial cells.squamous LM.HPF (Urine sed) [#/Area] 0-2 /HPF Normal 0-2/HPF [facility] UA Aut o SS Glucose Test strip (U) [Mass/Vol] Negative (03/27/23 8:54 AM) Normal Negative [facility] UA Auto SS Hemoglobin Ql (U) Negative (03/27/23 8:54 AM) Normal Negative [facility] UA Auto SS Ketones (U) [Mass/Vol] Negative (03/27/23 8:54 AM) Normal Negative [facility] UA Auto SS [place].plasma/Lithiu m.RBC (Bld) [Mass ratio] 0-3 /HPF Normal 0-3/HPF [facility] UA Auto SS Mucus Ql (Urine sed) 1+ (03/27/23 8:54 AM) Normal [facility] UA Auto SS Nitrite Ql (U) Negative (03/27/23 8:54 AM) Normal Negative [facility] UA Auto SS pH (U) 7.0 *NA* (03/27/23 8:54 AM) Invalid Interpretation Code 5.0 - 9.0 [facility] UA Auto SS Protein (U) [Mass/Vol] Negative (03/27/23 8:54 AM) Normal Negative [facility] UA Auto SS Specific gravity (U) [Rel density] 1.015 *NA* (03/27/23 8:54 AM) Invalid Interpretation Code 1.005 - 1.030 [facility] UA Auto SS UA Spec Desc Clean Catch (03/27/23 8:54 AM) Normal [facility] UA Auto SS Urobilinogen Qn (U) 0.4747846 {Fahad'U}/dL Normal 0.0 - 1.0 EU/dL [facility] UA Auto SS WBC Auto Ql (U) 2+ *ABN* (03/27/23 8:54 AM) Invalid Interpretation Code Negative [facility] UA Auto SS WBC LM.HPF (Urine sed) [#/Area] 0-5 /HPF Normal 0-5/HPF [facility] UA Auto SS eGFRon 03-27-2023 eGFR 82 mL/min/1.73 m2 Normal >=59 [facility] Comment on above: Order Comment: Order added by Discern Expert. Performed By: #### 2 748918, 84444659, 1086801, 07228322, 33121747, 9584507 ####[facility] [address] [place] [address] CNOVon 01-10-2023 CNOV Office Visit (INOPIN ) JOANNE MCGEE ([id number]) 4 F Date Time Provider Department 01/10/23 10:00 AM JOSEPH DONOVAN During your visit today, we recorded the following information about you: Last Period 01/25/21 Yoshi Albert MD 01/10/2023 10:35 AM Signed This is a 22-year-old female with a past medical history of scoliosis presenting with 2 to 3 months of lower back pain. Patient does not recall an inciting event, no trauma or fall. Is having bilateral lower back pain with intermittent radicular symptoms. Denies any numbness or tingling, bowel or bladder incontinence, saddle anesthesia, needle into the back. Did try a steroid taper along with muscle relaxant a few weeks ago prescribed by PCP which seem to help however pain came back as soon as her prescription ended. Review of systems otherwise unremarkable physical exam: No midline tenderness, no paravertebral muscle tenderness. Patient has positive SI joint tenderness, left greater than right. Positive single-leg extension bilaterally. Negative straight leg test. Assessment and plan: X-ray images from November reviewed, no major changes appreciated, Sullivan angle remains less than 20. Patient likely has SI joint pain at this time. Would recommend physical therapy and at least MRI imaging is indicated at this time given no midline back tenderness. Considered meloxicam however she has Crohn's so recommend scheduled tylenol. If fails to improve, can consider referral for SI joint injection. Yoshi Albert MD Emergency Medicine Primary Care Sports Medicine Fellow, PGY-5 Joseph Donovan MD 01/10/2023 10:35 AM Signed Patient seen by me and I agree with the gale components of the history, exam and plan of care. I have personally confirmed the above findings and concur. Please see their notes for details of the patient encounter. Joseph Donovan M.D. Patient seen by me and I agree with the gale components of the history, exam and plan of care. I have personally confirmed the above findings and concur. Please see their notes for details of the patient encounter. Joseph Donovan M.D. This young lady is having some pain in her left SI joint. We recommended physical therapy and exercise Tylenol as she has some GI issues. If she is no better in the next couple of months would consider selective left-sided SI joint injection. Otherwise she will follow-up as needed. Allergies As of Date: 01/10/2023 (No Known Allergies) Date Reviewed: 01/10/2023 Reviewed by: Elida Woodruff Ma - Fully Assessed Reason for Visit: New Patient Evaluation [154] Cmt: SCOLIOSIS FOLLOW UP Primary Visit Diagnosis:Sacroiliac pain [M53.3] Order(s):CONSULT TO PHYSICAL THERAPY [9027] Order #: [id number]: 1 FUTURE Prescriptions as of 01/10/2023 - sertraline (ZOLOFT) 50 mg tablet Take 50 mg by mouth once daily. - hydrOXYzine HCl (ATARAX) 25 mg tablet Take 25 mg by mouth three times daily as needed. - Mesalamine (PENTASA) 500 mg CR capsule Take 4 capsules by mouth twice daily. - dicyclomine (BENTYL) 10 mg capsule Take 2 capsules by mouth three times daily as needed. - magnesium citrate (CITRATE OF MAGNESIA) solution Take 10 oz as instructed for cleanout - medroxyprogesterone acetate (DEPO-PROVERA INTRAMUSC.) Inject 1 Dose intramuscularly every 3 months. 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 history of scoli and brace when younger TECHNIQUE: XR SCOLIOSIS 2V PA STAND/LAT Laterality: NOT APPLICABLE Number of different views (projections): 2 COMPARISON: 04/23/2018 RESULT: Again seen is thoracic levoscoliosis, similar to prior. The visualized thoracic vertebral body heights are maintained. IMPRESSION: No significant change. Web Coordinator: PSCB Transcribe Date/Time: Nov 25 2022 1:48P Dictated by : SHORTY JENNINGS MD This examination was interpreted and the report reviewed and electronically signed by: SHORTY JENNINGS MD on Nov 25 2022 1:51PM EST [id number] Normal [facility] XR SCOLIOSIS PA STAND/LAT 2V on 11-25-2022 [facility] FOOT LEFT 3 Son 10-21-2021 FOOT LEFT 3 [facility] Department of Radiology [address] [place] [id number] ======== Patient Name: JOANNE MCGEE : 2000 Sex: F Age: Race: White Pt. Location: Patient Status: O Ordered Date: 10/21/2021 10:00:00 AM Completed Date: 10/21/2021 10:10 AM Requesting Provider: JAYDEN DUPONT Attending Provider: JAYDEN DUPONT Report Copy To: Signs & Symptoms: S92.125D Nondisp fx of body of left talus, subs for fx w routn heal I10 History: Shereen Comments: Evaluate Exam: FOOT LEFT 3 [facility] ======== FOOT LEFT 3 [facility] 10/21/2021 10:10 AM CLINICAL INDICATIONS: S92.125D Nondisp fx of body of left talus, subs for fx w routn heal I10 TECHNOLOGIST COMMENTS: left foot pain surgery - 1 year ago f/u QUESTION FOR THE RADIOLOGIST: Evaluate PROTOCOL: AP,Lateral and Oblique views were obtained. COMPARISON: 09/30/2021 FINDINGS: Talar screws been removed. This minimal residual metallic debris posteriorly. There is no visible deformity of articular surfaces on foot radiographs. Midfoot alignment is anatomic with normal bone mineralization. IMPRESSION: Status post hardware removal. Electronically signed: Joy Barker. Transcribed by: [email or web address], User Resident: Electronically Signed by: JOY BARKER @ 10/21/2021 10:21 AM Normal [facility] Comment on above: Order Comment: Evalu ate FOOT LEFT 2 [facility] 10-05-2021 FOOT LEFT 2 [facility] Department of Radiology [address] [place] [id number] ======== Patient Name: JOANNE MCGEE : 2000 Sex: F Age: Race: White Pt. Location: OUTP Patient Status: Ordered Date: 10/05/2021 10:00:00 AM Completed Date: 10/05/2021 09:55 AM Requesting Provider: JAYDEN DUPONT Attending Provider: JAYDEN DUPONT Report Copy To: Signs & Symptoms: LEFT TALUS HARDWARE REMOVAL History: Comments: LEFT TALUS HARDWARE REMOVAL Exam: FOOT LEFT 2 [facility] ======== FOOT LEFT 2 [facility] 10/05/2021 9:55 AM CLINICAL INDICATIONS: LEFT TALUS HARDWARE REMOVAL TECHNOLOGIST COMMENTS: 57 secs of fluoro used by Dr Dupont QUESTION FOR THE RADIOLOGIST: LEFT TALUS HARDWARE REMOVAL PROTOCOL: AP(PA) and Lateral views were obtained. COMPARISON: 01/09/2022 Impression: 1. Intraoperative images demonstrate hardware removal from the talus. Electronically signed: Sadia Verma. Transcribed by: [email or web address], User Resident: Electronically Signed by: SADIA VERMA @ 10/05/2021 10:30 AM Normal [facility] Comment on above: Order Comment: LEFT TALUS HARDWARE REMOVAL Operative Reporton 2 Operative Report MR#: 01-24-41-22 [facility] Pt. Name: Joanne Mcgee Room #: 0C Discharge Date: Birthdate: 2000 OPERATIVE REPORT DATE OF SURGERY: 10/05/2021 SURGEON: Jayden Ebraheim, M.D. PREPROCEDURE DIAGNOSIS: Retained orthopedic implants, left foot. POSTPROCEDURE DIAGNOSIS: Retained orthopedic implants, left foot. PROCEDURE PERFORMED: Removal of deep implants, left foot. ASSISTANTS: 1. Mich Morales M.D., PGY-5. 2. Petr Benton M.D., PGY-4. 3. Art Asencio M.D., PGY-2. ANESTHESIA: General, LMA. FLUIDS: Please see anesthesia report. ESTIMATED BLOOD LOSS: 5 mL. IMPLANTS: None. EXPLANT: [employer] 4.5 mm partially-threaded fully cannulated screws x2. SPECIMENS: None. FINDINGS: Complete removal of all orthopedic implants from the left foot. TOURNIQUET TIME: None. INDICATIONS FOR PROCEDURE: The patient is a 21-year-old female who previously sustained a minimally displaced fracture of her left talus. She had undergone minimally invasive percutaneous screw fixation of this fracture and then gone on to uneventful healing. Due to symptomatic implants, she had wished for removal of these 2 screws. Risks, benefits, and alternatives of operative versus nonoperative management were discussed with the patient and removal of the screws from the left foot was decided upon. Informed consent was obtained at the time of clinic visit. DESCRIPTION OF PROCEDURE: The patient was met in the preoperative holding area, where a physical exam was performed and the left foot was marked with indelible ink at the operative site. Informed consent was also confirmed at this time. The patient was transported to the operative suite, where general anesthesia was induced and airway was secured with an LMA. A large well-padded bump was placed on the patient's left hip to allow for appropriate fluoroscopic imaging in AP and lateral planes of the left foot. A nonsterile tourniquet was applied to the left lower extremity, although was not inflated throughout the duration of the case. The left lower extremity was then prepped and draped in normal sterile fashion. A time-out was performed identifying patient by name, date of , medical record number, procedure to be performed including site and laterality. Operative staff were also introduced at this time. The previous percutaneous stab wounds were identified and then appropriately-sized K-wire was introduced percutaneously to the side of the screw. Under AP and lateral fluoroscopy, this was carefully threaded through the cannulated screw. A small skin incision made with 15 blade and the screw was removed on hand. A new K-wire was then used to cannulate the 2nd screw as the 1st K-wire had been bent in process. This similarly was identified on AP and lateral fluoroscopy before removing the screw under hand power. The final fluoroscopic imaging demonstrated complete removal of all orthopedic implants. The wounds were then washed with Betadine and saline, and the skin was closed with 3-0 Novofil. 10 mL of 0.25% Marcaine with epinephrine was then injected for postop anesthetic control. A soft sterile dressing was then applied. Anesthesia was reversed. The patient was extubated in the operative suite without complication. POSTOPERATIVE PLAN: The patient will recover from anesthesia in the PACU before returning home. She will be discharged with short course of oral narcotic pain medication and standard 2 days of antibiotic oral prophylaxis. She may be weightbearing as tolerated to the left lower extremity. She will perform dressing changes starting on postoperative day #5. We will see the patient in approximately 10-14 days in clinic for wound evaluation and suture removal. All sponge, needle counts were correct at the end the case x2. Dr. Jayden Dupont was present, scrubbed, and immediately available for all critical portions of the procedure and was directly involved in all patient care decisions. at the time. Electronically Signed by: Jayden Dupont M.D. 10/08/2021 05:07 P Jayden Dupont M.D. I was present for the gale and critical portions and I was otherwise immediately available to assist. Date Dict: 10/05/2021/09:23 Maggie/Petr Benton MD Date Trans: 10/05/2021 09:05 P/goodo [id number] Normal [facility] POC GLUCOSE LABon 10-05-2021 Glucose [Mass/Vol] 84 mg/dL Normal 70-100 [facility] Comment on above: Performed By: #### [id number] #### [facility] [address] POC SARS COV2 IDon 2 SARS-CoV-2 (COVID-19) RNA SUZI+probe Ql (Unsp spec) Negative Normal NEGATIVE [facility] Comment on above: Result Comment: ID N OW COVID-19 assay performed on the ID NOW Instrument is a rapid molecular in vitro diagnostic test utilizing an isothermal nucleic acid amplification technology intended for the qualitative detection of nucleic acid from the SARS-CoV-2 virus in direct anterior nasal (nasal), nasopharyngeal or throat swabs from individuals who are suspected of COVID-19 by their healthcare provider within the first seven days of the onset of symptoms. Testing is limited to laboratories certified under the Clinical Laboratory Improvement Amendments of 1988 (CLIA), 42 U.S.C. ???263a,that meet the requirements to perform high, moderate, or waived complexity tests. The ID NOW COVID-19 assay is also authorized for use at the Point of Care (POC), i.e., in patient care settings operating under a CLIA Certificate of Waiver, Certificate of Compliance, or Certificate of Accreditation. Performed By: #### [id number] #### [facility] [address] [facility] [place] [address], [facility] POC URINE PREGNANCYon 2021 Beta HCG ( test) Ql (U) Negative Normal NEGATIVE [facility] Comment on above: Result Comment: Perf ormed in PACU Performed By: #### [id number] #### [facility] [address] [facility] [place] [address], [facility] CHEMISTRYOrdered By: SYSTEM SYSTEM on 10-02-2021 Anion gap [Moles/Vol] 11 mmol/L Normal 6 - 16 mEq/L [facility] Remisol Calcium [Mass/Vol] 9.4 mg/dL Normal 8.9 - 11. 1 mg/dL [facility] Remisol Chloride [Moles/Vol] 105 mmol/L Normal 101 - 1 11 mmol/L [facility] Remisol CO2 [Moles/Vol] 24 mmol/L Normal 21 - 31 mmol/L [facility] Remisol Creatinine [Mass/Vol] 1.0 mg/dL Normal 0.5 - 1.3 mg/dL [facility] Remisol GFR/1.73 sq M.predicted among blacks MDRD (S/P/Bld) [Vol rate/Area] mL/min/1.73 m2 Normal >=59mL/min/1 .73 m2 [facility] Chem S GFR/1.73 sq M.predicted among non-blacks MDRD (S/P/Bld) [Vol rate/Area] mL/min/1.73 m2 Normal >=59mL/min/1 .73 m2 [facility] Chem S Glucose [Mass/Vol] 91 mg/dL Normal 55 - 199 mg/dL [facility] Remisol Potassium [Moles/Vol] 3.8 mmol/L Normal 3.5 - 5.3 mmol/L [facility] Remisol Sodium [Moles/Vol] 136 mmol/L Normal 135 - 145 mmol/L [facility] Remisol Urea nitrogen [Mass/Vol] 12 mg/dL Normal 5 - 21 mg/dL [facility] Remisol Urea nitrogen/Creatinine [Mass ratio] 12 mg/mg Normal 10 - 20 [facility] Remisol COAGULATIONOrdered By: Roxie Hastings on 10-02-2021 aPTT Coag (PPP) [Time] 35.5 s Normal 25.1 - 36.5 second(s) [facility] Auto Coag INR Coag (PPP) [Relative time] 1.2 {INR} Invalid Interpretation Code [facility] Auto Coag PT Coag (PPP) [Time] 13.4 s High 9.4 - 1 2.5 second(s) [facility] Auto Coag HEMATOLOGYOrdered By: SYSTEM SYSTEM on 10-02-2021 Basophils/100 WBC (Bld) 0.8 % Normal 0.0 - 2.0 % [facility] HemeAutoSS Basophils/Leukocytes Auto (Bld) [Pure # fraction] 0.0 E9/L Normal 0.0 - 0.2 E9/L [facility] HemeAutoSS Eosinophils/100 WBC (Bld) 4.1 % Normal 0.0 - 8.0 % [facility] HemeAutoSS Eosinophils/Leukocyte s Auto (Bld) [Pure # fraction] 0.2 E9/L Normal 0.0 - 0.5 E9/L [facility] HemeAutoSS Lymphocytes/100 WBC (Bld) 33.7 % Normal 14.0 - 50.0 % [facility] HemeAutoSS Lymphocytes/Leukocyte s Auto (Bld) [Pure # fraction] 2.0 E9/L Normal 1.0 - 4.0 E9/L [facility] HemeAutoSS Monocytes/100 WBC (Bld) 8.1 % Normal 4.0 - 14.0 % [facility] HemeAutoSS Monocytes/Leukocytes Auto (Bld) [Pure # fraction] 0.5 E9/L Normal 0.2 - 1.0 E9/L [facility] HemeAutoSS Neutrophils/100 WBC (Bld) 53.3 % Normal 36.0 - 75.0 % [facility] HemeAutoSS Neutrophils/Leukocyte s Auto (Bld) [Pure # fraction] 3.2 E9/L Normal 2.0 - 7.5 E9/L [facility] HemeAutoSS HEMATOLOGYOrdered By: Jessica Wheeler on 10-02-2021 Erythrocyte distribution width (RBC) [Ratio] 13.7 % Normal 10.9 - 14.2 % [facility] HemeAutoSS Hematocrit (Bld) [Volume fraction] 43.1 % Normal 34.0 - 46.0 % [facility] HemeAutoSS Hemoglobin (Bld) [Mass/Vol] 14.7 g/dL Normal 12.0 - 16.0 gm/dL [facility] HemeAutoSS MCH (RBC) [Entitic mass] 28.6 pg Normal 27.0 - 34.0 pg [facility] HemeAutoSS MCHC (RBC) [Mass/Vol] 34.1 g/dL Normal 31.4 - 36.0 gm/dL [facility] HemeAutoSS MCV (RBC) [Entitic vol] 83.8 fL Normal 80.0 - 100.0 fL [facility] HemeAutoSS Platelet mean volume (Bld) [Entitic vol] 9.4 fL Normal 6.4 - 10.8 fL [facility] HemeAutoSS Platelets (Bld) [#/Vol] 185.0 E9/L Normal 150.0 - 500.0 E9/L [facility] HemeAutoSS RBC (Bld) [#/Vol] 5.2 E12/L Normal 4.3 - 5.9 E12/L [facility] HemeAutoSS WBC corrected for nucl RBC Auto (Bld) [#/Vol] 6.0 E9/L Normal 4.0 - 11.0 E9/L [facility] HemeAutoSS ANKLE LEFT 3 VWSon 2 ANKLE LEFT 3 VWS [facility] Department of Radiology [address] [place] [address] ======== Patient Name: JOANNE MCGEE : 2000 Sex: F Age: Race: White Pt. Location: 84 Patient Status: Ordered Date: 09/30/2021 3:25:00 PM Completed Date: 09/30/2021 03:32 PM Requesting Provider: EMILIA FALLON Attending Provider: Report Copy To: Signs & Symptoms: S92.125D Nondisp fx of body of left talus, subs for fx w routn heal I10 History: Comments: evaluate Exam: ANKLE LEFT 3 [facility] ======== ANKLE LEFT 3 S 09/30/2021 3:32 PM CLINICAL INDICATIONS: Left ankle pain, tibial fracture, postoperative evaluation TECHNOLOGIST COMMENTS: Patient states having Ortho follow up for surgery to the left ankle. Surgery was on 06/30/20. QUESTION FOR THE RADIOLOGIST: evaluate PROTOCOL: AP,Lateral and Oblique views were obtained. COMPARISON: 01/27/2021 FINDINGS: Surgical screw fixation of talar fracture appears unchanged alignment without evidence of complication. Ankle mortise is preserved. Mild degenerative changes of the dorsal midfoot. Pes planus deformity. IMPRESSION: * Surgical screw fixation of remote talar fracture unchanged in alignment without complication. Approved by:Chuy Blount09/30/2021 3:50 PM. I, Jamison Ziegler,have reviewed the image(s) and agree with the findings in this report. Electronically signed: Jamison Ziegler. Transcribed by: [email or web address], User Resident: CHUY MONAE Electronically Signed by: JAMISON ZIEGLER @ 09/30/2021 04:04 PM I personally read this/these film(s) with this resident Normal [facility] Comment on above: Order Comment: evalu ate SEROLOGYOrdered By: Emeka cuevas on 06-08-2021 Beta hCG Ql Negative (06/08/21 11:39 AM) Normal [facility] Man Sero CBC AUTO DIFFon 05-25-2021 BASO # 0.1 103/ul Normal 0.0-0.1 [facility] Comment on above: Performed By: #### C BC #### [facility] [address] [address] [address] Nakia Meyer Basophils/100 WBC (Bld) 0.7 % Normal 0.2-2.0 [facility] Comment on above: Performed By: #### C BC #### [facility] [address] [address] [address] Nakia Meyer EO # 0.3 103/ul Normal 0.0-0.7 [facility] Comment on above: Performed By: #### C BC #### [facility] [address] [address] [address] Nakia Meyer Eosinophils/100 WBC (Bld) 3.2 % Normal 0.9-7.0 [facility] Comment on above: Performed By: #### C BC #### [facility] [address] [address] [address] Nakia Meyer Erythrocyte distribution width (RBC) [Ratio] 12.9 % Normal 11.0-15.0 [facility] Comment on above: Performed By: #### C BC #### [facility] [address] [address] [address] Nakia Meyer Hematocrit (Bld) [Volume fraction] 42.7 % Normal 36.0-48.0 [facility] Comment on above: Performed By: #### C BC #### [facility] [address] [address] [address] Nakia Meyer Hemoglobin (Bld) [Mass/Vol] 14.7 g/dL Normal 12.0-16.0 [facility] Comment on above: Performed By: #### C BC #### [facility] [address] [place] [address] Dr. Nakia Meyer IG # 0.03 10e3/ul Normal 0.00-0.03 [facility] Comment on above: Performed By: #### C BC #### [facility] [address] [place] [address] Dr. Nakia Meyer IG % 0.4 % Normal 0.0-0.5 [facility] Comment on above: Performed By: #### C BC #### [facility] [address] [place] [address] Dr. Nakia Meyer LYMPH # 2.0 103/ul Normal 1.2-3.8 [facility] Comment on above: Performed By: #### C BC #### [facility] [address] [place] [address] Dr. Nakia Meyer Lymphocytes/100 WBC (Bld) 24.5 % Normal 20.5-60.0 [facility] Comment on above: Performed By: #### C BC #### [facility] [address] [place] [address] Dr. Nakia Meyer MANUAL DIFF REQ NO Normal [facility] Comment on above: Performed By: #### C BC #### [facility] [address] [place] [address] Dr. Nakia Meyer MCH (RBC) [Entitic mass] 29.4 pg Normal 26.7-34.0 [facility] Comment on above: Performed By: #### C BC #### [facility] [address] [place] [address] Dr. Nakia Meyer MCHC (RBC) [Mass/Vol] 34.4 g/dL Normal 29.9-35.2 [facility] Comment on above: Performed By: #### C BC #### [facility] [address] [place] [address] Dr. Nakia Meyer MCV (RBC) [Entitic vol] 85.4 fL Normal 81.0-99.0 [facility] Comment on above: Performed By: #### C BC #### [facility] [address] [place] [address] Dr. Nakia Meyer MONO # 0.7 103/ul Normal 0.3-0.8 [facility] Comment on above: Performed By: #### C BC #### [facility] [address] [place] [address] Dr. Nakia Meyer Monocytes/100 WBC (Bld) 8.3 % Normal 1.7-12.0 [facility] Comment on above: Performed By: #### C BC #### [facility] [address] [place] [address] Dr. Nakia Meyer NEUT # 5.1 103/ul Normal 1.4-6.5 [facility] Comment on above: Performed By: #### C BC #### [facility] [address] [place] [address] Dr. Nakia Meeyr Neutrophils/100 WBC (Bld) 62.9 % Normal 43.0-75.0 [facility] Comment on above: Performed By: #### C BC #### [facility] [address] [place] [address] Dr. Nakia Meyer Platelet mean volume (Bld) [Entitic vol] 10.7 fL Normal 9.5-13.5 [facility] Comment on above: Performed By: #### C BC #### [facility] [address] [place] [address] Dr. Nakia Meyer PLT 204 103/ul Normal 150-450 [facility] Comment on above: Performed By: #### C BC #### [facility] [address] [place] [address] Dr. Nakia Meyer RBC 5.00 106/ul Normal 4.20-5.40 [facility] Comment on above: Performed By: #### C BC #### [facility] [address] [place] [address] Dr. Nakia Meyer WBC 8.2 103/ul Normal 4.0-11.0 [facility] Comment on above: Performed By: #### C BC #### [facility] [address] [place] [address] Dr. Nakia Meyer PROTIMEon 05-25-2021 INR Coag (PPP) [Relative time] 1.06 {INR} Normal [facility] Comment on above: Performed By: #### P T, PTT #### [facility] [address] [place] [address] Dr. Nakia Meyer INR GUIDELINES SEE BELOW Normal [facility] Comment on above: Result Comment: JODI RED INR: 2.0 - 3.0 CONDITIONS NOT LISTED BELOW 2.5 - 3.5 FOR PROSTHETIC HEART VALVE REPLACEMENT 2.5 - 3.5 RECURRENT THROMBOSIS Performed By: #### P T, PTT #### [facility] [address] [place] [address] Dr. Nakia Meyer PT Coag (PPP) [Time] 11.4 s Normal 9.0-11.6 [facility] Comment on above: Performed By: #### P T, PTT #### [facility] [address] [place] [address] Dr. Nakia Meyer PTTon 05-25-2021 aPTT Coag (Bld) [Time] 26.7 s Normal 22.3-36.2 [facility] Comment on above: Performed By: #### P T, PTT #### [facility] [address] [place] [address] Dr. Nakia Meyer ANKLE LEFT 3 [facility] ANKLE LEFT 3 [facility] Department of Radiology [address] [place] [id number] ======== Patient Name: JOANNE MCGEE : 2000 Sex: F Age: Race: White Pt. Location: Patient Status: D Ordered Date: 01/27/2021 1:40:00 PM Completed Date: 01/27/2021 01:40 PM Requesting Provider: EMILIA FALLON Attending Provider: EMILIA FALLON Report Copy To: Signs & Symptoms: S92.125D Nondisp fx of body of left talus, subs for fx w routn heal I10 History: Comments: Evaluate Exam: ANKLE LEFT 3 S ======== ANKLE LEFT 3 [facility] CLINICAL INFORMATION: follow up left ankle surgery x couple months. S92.125D Nondisp fx of body of left talus, subs for fx w routn heal I10. COMPARISON: 10/28/2020. IMPRESSION: 1. Surgical fixation of the talus. No malalignment. No soft tissue swelling. Electronically signed: Leo Kohler. Transcribed by: [email or web address], User Resident: Electronically Signed by: LEO KOHLER @ 01/28/2021 10:18 AM Normal [facility] Comment on above: Order Comment: Evalu ate ANKLE LEFT 3 [facility] 1 ANKLE LEFT 3 [facility] Department of Radiology [address] [place] [id number] ======== Patient Name: JOANNE MCGEE : 2000 Sex: F Age: Race: White Pt. Location: Patient Status: O Ordered Date: 10/28/2020 2:10:00 PM Completed Date: 10/28/2020 02:09 PM Requesting Provider: EMILIA FALLON Attending Provider: EMILIA FALLON Report Copy To: Signs & Symptoms: S92.102A Unsp fracture of left talus, init encntr for closed fracture I10 History: Comments: Evaluate Exam: ANKLE LEFT 3 VWS ======== ANKLE LEFT 3 VWS 10/28/2020 2:09 PM CLINICAL INDICATIONS: S92.102A Unsp fracture of left talus, init encntr for closed fracture I10 TECHNOLOGIST COMMENTS: Follow up left ankle surgery four months ago QUESTION FOR THE RADIOLOGIST: Evaluate PROTOCOL: AP,Lateral and Oblique views were obtained. COMPARISON: September 09, 2020 FINDINGS: Surgical fixation of the talus in unchanged alignment, and without hardware complication. No visualized fracture lines. Small metallic fragments posterior to the talus, unchanged from prior exam. Ankle mortise is symmetric. Osteopenia. IMPRESSION: Surgical fixation of the talus in unchanged alignment and without hardware complication. Approved by:Chuy Wright10/28/2020 2:41 PM. I, Crystal Espinosa,have reviewed the image(s) and agree with the findings in this report. Electronically signed: Crystal Espinosa. Transcribed by: [email or web address], User Resident: CHUY MONAE Electronically Signed by: CRYSTAL ESPINOSA @ 10/28/2020 03:32 PM I personally read this/these film(s) with this resident Normal [facility] Comment on above: Order Comment: Evalu ate CORNEAL TOPOGRAPHY PENTACAM OU (BOTH EYES) [facility] Vital Signs Date Time Vital Sign Value Performing Clinician Facility 06-28-2023 10:42-0400 Body height 162.6 cm Tasha Muñoz DO Work Phone: [facility] 06-28-2023 10:42-0400 Body mass index (BMI) [Ratio] 24.89 kg/m2 Tasha Muñoz DO Work Phone: [facility] 06-28-2023 10:42-0400 Body weight 65.77 kg Tasha Muñoz DO Work Phone: [facility] Comment on above: self report 05-10-2023 08:55-0400 Body height 162.6 cm Tasha Muñoz DO Work Phone: [facility] 05-10-2023 08:55-0400 Body weight 65.77 kg Tasha Muñoz DO Work Phone: [facility] 04-25-2023 19:23-0500 Diastolic blood pressure 84 mm[Hg] [facility] 04-25-2023 19:23-0500 Heart rate 67 /min [facility] 04-25-2023 19:23-0500 Mean blood pressure 93 mm[Hg] [facility] 04-25-2023 19:23-0500 Respiratory rate 18 /min [facility] 04-25-2023 19:23-0500 SaO2% (BldA) [Mass fraction] 96 % [facility] 04-25-2023 19:23-0500 Systolic blood pressure 111 mm[Hg] [facility] 04-25-2023 18:49-0500 Diastolic blood pressure 75 mm[Hg] [facility] 04-25-2023 18:49-0500 Heart rate 61 /min [facility] 04-25-2023 18:49-0500 Mean blood pressure 87 mm[Hg] Viet Radu [facility] 04-25-2023 18:49-0500 Respiratory rate 16 /min [facility] 04-25-2023 18:49-0500 SaO2% (BldA) [Mass fraction] 98 % [facility] 04-25-2023 18:49-0500 Systolic blood pressure 111 mm[Hg] Viet Lovelace [facility] 04-25-2023 18:15-0500 Diastolic blood pressure 76 mm[Hg] [facility] Lovelace [facility] 04-25-2023 18:15-0500 Heart rate 61 /min Viet Lovelace [facility] 04-25-2023 18:15-0500 Mean blood pressure 85 mm[Hg] [facility] 04-25-2023 18:15-0500 Respiratory rate 18 /min [facility] 04-25-2023 18:15-0500 SaO2% (BldA) [Mass fraction] 97 % [facility] 04-25-2023 18:15-0500 Systolic blood pressure 103 mm[Hg] [facility] 04-25-2023 14:41-0500 Body temperature 98.6 [degF] [facility] Lo[facility] 04-25-2023 14:41-0500 Heart rate 92 /min Viet Lovelace [facility] 06-08-2021 17:37-0400 Blood Pressure Location Tonny Timmis [facility] 06-08-2021 17:37-0400 BP/Pulse Patient Position Tonny Timmis [facility] 06-08-2021 17:37-0400 Diastolic blood pressure 67 mm[Hg] Tonny Timmis [facility] 06-08-2021 17:37-0400 Heart rate 64 /min Tonny Timmis [facility] 06-08-2021 17:37-0400 Mean blood pressure 80 mm[Hg] Tonny Timmis [facility] 06-08-2021 17:37-0400 Respiratory rate 16 /min Tonny Timmis [facility] 06-08-2021 17:37-0400 SaO2% (BldA) [Mass fraction] 97 % Tonny Timmis [facility] 06-08-2021 17:37-0400 Systolic blood pressure 108 mm[Hg] Tonny Timmis [facility] 06-08-2021 16:39-0400 Blood Pressure Location Tonny Timmis [facility] 06-08-2021 16:39-0400 BP/Pulse Patient Position Tonny Timmis [facility] 06-08-2021 16:39-0400 Diastolic blood pressure 70 mm[Hg] Tonny Timmis [facility] 06-08-2021 16:39-0400 Heart rate 67 /min Tonny Timmis [facility] 06-08-2021 16:39-0400 Mean blood pressure 84 mm[Hg] Tonny Timmis [facility] 06-08-2021 16:39-0400 Respiratory rate 16 /min Tonny Timmis [facility] 06-08-2021 16:39-0400 SaO2% (BldA) [Mass fraction] 97 % Tonny Timmis [facility] 06-08-2021 16:39-0400 Systolic blood pressure 110 mm[Hg] Tonny Timmis [facility] 06-08-2021 16:30-0400 Body temperature 97.52 [degF] Tonny Timmis [facility] 06-08-2021 16:30-0400 Diastolic blood pressure 80 mm[Hg] Tonny Timmis [facility] 06-08-2021 16:30-0400 Heart rate 60 /min Tonny Timmis [facility] 06-08-2021 16:30-0400 Respiratory rate 18 /min Tonny Timmis [facility] 06-08-2021 16:30-0400 SaO2% (BldA) [Mass fraction] 95 % Tonny Timmis [facility] 06-08-2021 16:30-0400 Systolic blood pressure 116 mm[Hg] Tonny Timmis [facility] 06-08-2021 16:15-0400 Respiratory rate 13 /min Tonny Timmis [facility] 06-08-2021 16:00-0400 Respiratory rate 20 /min Tonny Timmis [facility] 06-08-2021 15:31-0400 Body temperature 97.34 [degF] Tonny Timmis [facility] 06-08-2021 15:25-0400 Respiratory rate 21 /min Tonny Timmis [facility] 06-08-2021 11:24-0400 Blood Pressure Location Tonny Timmis [facility] 06-08-2021 11:24-0400 BP/Pulse Patient Position Tonny Timmis [facility] 06-08-2021 11:24-0400 Mean blood pressure 81 mm[Hg] Tonny Timmis [facility] 06-08-2021 11:23-0400 Body temperature 97.52 [degF] Tonny Casarez [facility] 06-08-2021 11:23-0400 Heart rate 68 /min Tonny Casarez [facility] Encounters Encounter Date Encounter Type Care Provider Facility Start: 07-10-2023 ambulatory BRAEDEN RAI Facility:[facility] Start: 06-28-2023 End: 06-28-2023 Orders Only Tasha Muñoz DO Work Phone: [facility] [place] Comment on above: Lumbar disc herniati on (Primary Dx); Lumbar radiculopathy, chronic procedure instructio ns Start: 06-28-2023 End: 06-28-2023 Office outpatient visit 25 minutes Tasha Muñoz DO Work Phone: [facility] [place] Comment on above: Lumbar disc herniati on (Primary Dx); Lumbar radiculopathy, chronic Start: 06-12-2023 End: 06-12-2023 ambulatory KENDAL YAMILEX Not Available Start: 06-05-2023 End: 06-05-2023 ambulatory ANA CELAYA Facility:[facility] Start: 06-05-2023 End: 06-05-2023 ambulatory Emg 400) Work Phone: Neurology Comment on above: EMG Start: 06-05-2023 End: 06-05-2023 Patient encounter procedure Emg 2 Neur [facility] Rej (Max Weight: 400) Work Phone: [facility] Start: 06-05-2023 End: 06-05-2023 Subsequent hospital visit by physician Mri [facility] (Istat/3t) Work Phone: [facility] Radiology MRI Comment on above: Spinal stenosis of l umbar region, unspecified whether neurogenic claudication present [M48.061] Start: 05-30-2023 End: 05-30-2023 ambulatory KENDAL YAMILEX Not Available Start: 05-16-2023 End: 05-16-2023 ambulatory JOSEPHINE THANIA [facility] Start: 05-10-2023 End: 05-10-2023 ambulatory ANA CLEAYA Facility:[facility] Start: 05-10-2023 End: 05-10-2023 Subsequent hospital visit by physician Xr Nia Villarreal Work Phone: [facility] Radiology General Comment on above: Sacroiliac pain [M53 .3] Start: 05-10-2023 End: 05-10-2023 Office consultation new/estab patient 60 min Tasha Muñoz DO Work Phone: [facility] [place] Comment on above: Lumbar disc herniati on (Primary Dx); Sacroiliac pain; Degenerative arthropathy of spinal facet joint; Myalgia; Spinal stenosis of lumbar region, unspecified whether neurogenic claudication present Start: 05-01-2023 End: 05-02-2023 ambulatory BRAEDEN RAI Facility:[facility] Start: 05-01-2023 End: 05-01-2023 Lab Drop off BRAEDEN RAI [facility] Start: 04-25-2023 End: 04-25-2023 Emergency department patient visit BRAEDEN RAI Facility:[facility] Start: 04-25-2023 End: 04-25-2023 Emergency department patient visit Viet Lovelace [facility] Start: 04-14-2023 End: 04-14-2023 ambulatory BRAEDEN ARI [facility] Start: 03-27-2023 End: 03-28-2023 ambulatory BRAEDEN RAI Facility:[facility] Start: 03-27-2023 End: 03-27-2023 Patient encounter procedure BRAEDEN RAI [facility] Start: 01-10-2023 End: 01-10-2023 ambulatory ANA CELAYA Facility:[facility] Start: 01-10-2023 End: 01-10-2023 Patient encounter procedure Joseph Donovan MD Work Phone: Peds Orthopaedics Comment on above: Sacroiliac pain (Yajaira barry Dx) Start: 01-08-2023 Telephone encounter Td sultana MD Work Phone: Provider OB Comment on above: Erroneous encounter- disregard Start: 11-25-2022 End: 11-25-2022 ambulatory Daya Yesenia RT(R) Radiology Comment on above: Radiology XR Start: 11-25-2022 Patient encounter procedure Daya Yesenia RT(R) [facility] Start: 11-25-2022 End: 11-25-2022 Subsequent hospital visit by physician Xr [facility] Comment on above: Pain [R52] Start: 10-10-2022 End: 10-10-2022 ambulatory ANA CELAYA Facility:[facility] Start: 10-10-2022 End: 10-10-2022 Patient encounter procedure Ama Rapp OD Work Phone: Ophthalmology Comment on above: Vitreous floater, bi lateral (Primary Dx); Irregular astigmatism, bilateral; Myopia with astigmatism, bilateral Start: 10-05-2021 End: 10-06-2021 ambulatory PHYSICIAN UNKNOWN Facility:[facility] Start: 10-02-2021 End: 10-02-2021 Patient encounter procedure JAYDEN CANDELARIO [facility] Start: 06-17-2021 End: 06-17-2021 Lab Drop off Ama MCGINNIS [facility] Start: 06-15-2021 Telephone encounter Emani jin MD Work Phone: [facility] [place] Comment on above: Patient Update Start: 06-08-[address] TONNY Bautista ty:[facility]1 Start: 06-08-2021 End: 06-08-2021 Admission to same day surgery center Tonny Casarez [facility] Start: 06-07-2021 End: 09-06-2021 Preprocedural examination done Tonny Casarez [facility] Start: 06-07-2021 End: 09-06-2021 Recurring Tonny Casarez [facility] Start: 06-05-[address] TONNY CASAREZ Facili ty:[facility]1 Start: 05-27-2021 Encounter for preprocedural cardiovascular examination DR TONNY CASAREZ [facility] Start: 05-27-2021 Encounter for preprocedural laboratory examination DR TONNY CASAREZ [facility] Start: 05-25-2021 End: 05-26-[address] TONNY CASAREZ Facility:[facility] Start: 05-25-2021 End: 05-26-2021 Encounter for preprocedural cardiovascular examination DR TONNY CASAREZ Facility:[facility] Start: 05-15-2021 End: 05-15-2021 Patient encounter procedure Tonny Casarez [facility] Procedures Date Procedure Procedure Detail Performing Clinician Start: 06-05-2023 Nerve conduction addy dies 5-6 studies Tasha Muñoz DO Work Phone: Start: 06-05-2023 Mri spinal canal lum bar w/o contrast material Tasha Muñoz DO Work Phone: Start: 05-10-2023 Radex spine lumbosac ral 2/3 views Tasha Muñoz DO Work Phone: Start: 11-25-2022 Radex entir thrc lmb r crv sac spi w/skull 2/3 vw Joseph Donovan MD Work Phone: Start: 10-10-2022 Computerized corneal topography uni/bi Ama Rapp OD Work Phone: Start: 06-08-2021 Nasal septoplasty Slade Casarez Start: 07-31-2019 Bladder excision Tonny Timmis Comment on above: LAPAROSCOPIC LEFT OV ESTELA CYSTECTOMY Start: 02-28-2019 Partial submucous re section of turbinate Tonny Timmis Comment on above: RIGHT INFERIOR TURBI HAILY SUBMUCOSAL RESECTION Start: 02-28-2019 Submucous resection of nasal turbinate Tonny Timmis Comment on above: RIGHT INFERIOR TURBI HAILY SUBMUCOSAL RESECTION Start: 02-27-2019 1st metatarsal fract ure repair Tonny Timmis Colonoscopy Tonny Timmis Open reduction of fr acture of ankle with internal fixation Tonny Timmis Tonsillectomy and adenoidectomy Tonny Timmis Plan of Treatment Date Care Activity Detail Author Start: 08-11-2024 Urine microalbumin profile DTaP,Tdap,Td Vaccine (7 - Td or Tdap) [facility] Start: 05-29-2024 GC (Gonorrhea) Scree escobar (18-24) GC (Gonorrhea) Screening (18-) [facility] Start: 05-29-2024 Screening for Chlamy juan josé trachomatis Chlamydia Screening () [facility] Start: 10-22-2023 Influenza vaccination Influenz a Vaccine (Season Ended) [facility] Start: 07-20-2023 End: 07-20-2023 Admission to same day surgery center 07/20/2023 10:40 AM EDT - 07/20/2023 11:00 AM EDT Surgery Procedures [address] [place] [address] Tasha Muñoz [place] [address] [place] [address] INJECTION ANESTHETIC AGENT/STEROID TRANSFORAMINAL EPIDURAL W/ IMAGING GUIDANCE LUMBAR BILATERAL Procedures Comment on above: INJECTION ANESTHETIC AGENT/STEROID TRANSFORAMINAL EPIDURAL W/ IMAGING GUIDANCE LUMBAR BILATERAL Start: 07-20-2023 End: 07-20-2023 Njx anes&/strd w/img tfrml edrl lmbr/sac 1 lvl INJECTION ANESTHETIC AGENT/STEROID TRANSFORAMINAL EPIDURAL W/ IMAGING GUIDANCE LUMBAR BILATERAL Lumbar disc herniation Lumbar radiculopathy, chronic 07/20/2023 10:40 AM EDT AV ENDO Start: 07-20-2023 End: 07-20-2023 Patient encounter procedure 07/20/2023 10:40 AM EDT Appointment Procedures [id number] [facility] [place] [address] Tasha Muñ[place] [address] [place] [address] TFESI BL L4-5 Procedures Comment on above: TFESI BL L4-5 Start: 07-20-2023 Subsequent hospital visit by physician 07/20/2023 10:40 AM EDT Hospital Encounter Procedures [id number] [facility] [address] Tasha Muñoz [place] [address] [place] [address] Lumbar disc herniation [M51.26] Procedures Comment on above: Lumbar disc herniati on [M51.26] Start: 02-20-2023 Behavioral Health Screening Behavioral Health Screening [facility] Start: 02-20-2023 Depression Assessment [facility] Start: 2023 Screening for malign ant neoplasm of cervix Pap Testing [facility] Start: 10-21-2022 Covid-19 Vaccine ( season) Covid-19 Vaccine ( season) [facility] Start: 10-21-2022 Influenza vaccination [facility] Start: 02-20-2022 DEPRESSION ASSESSMENT DEPRESSION ASS ESSMENT [facility] Start: 10-21-2021 Influenza vaccination INFLUENZA (Sea son Ended) [facility] Start: 2021 Urine microalbumin profile [facility] Start: 11-03-2020 HEPATITIS B (2 of 3 - 3-dose series) HEPATITIS B (2 of 3 - 3-dose series) [facility] Start: 11-03-2020 Hepatitis B Vaccine (2 of 3 - 3-dose series) Hepatitis B Vaccine (2 of 3 - 3-dose series) [facility] Start: 01-25-2020 CHLAMYDIA SCREENING (18-24) CHLAMYDIA SCREENING (18-24) [facility] Start: 01-25-2020 GC (GONORRHEA) SCREE ESCOBAR (18-24) GC (GONORRHEA) SCREENING (18-24) [facility] Start: 01-25-2020 HIV SCREENING HIV SCREENING [facility] Start: 01-25-2020 HIV screening HIV Screening [facility] Start: 01-25-2020 Screening for Chlamy juan josé trachomatis Chlamydia Screening (18) [facility] Start: 2018 Meningococcal B Vacc ine: Consider Based On Risk (1 of 2 - Patient Seeks Protection) Meningococcal B Vaccine: Consider Based On Risk (1 of 2 - Patient Seeks Protection) [facility] Start: 2018 MENINGOCOCCAL B: Consider based on risk (1 of 2 - Patient Seeks Protection) MENINGOCOCCAL B: Consider based on risk (1 of 2 - Patient Seeks Protection) [facility] Start: 2017 HPV Vaccine (1 - 3-d ose series) HPV Vaccine (1 - 3-dose series) [facility] Start: 01-25-2016 PEDS TO ADULT TRANSI TION ANNUAL ASSESSMENT PEDS TO ADULT TRANSITION ANNUAL ASSESSMENT [facility] Start: 2014 Adult depression screening assessment DEPRESSION SCREENING [facility] Start: 2014 PEDS TO ADULT TRANSI TION INITIAL DISCUSSION PEDS TO ADULT TRANSITION INITIAL DISCUSSION [facility] Start: 2013 HPV VACCINE (1 - 2-d ose series) HPV VACCINE (1 - 2-dose series) [facility] Start: 01-25-2012 MENINGOCOCCAL B: Consider based on risk (1 of 2 - Risk Bexsero 2-dose series) MENINGOCOCCAL B: Consider based on risk (1 of 2 - Risk Bexsero 2-dose series) [facility] Start: 2011 HPV VACCINE (1 - 2-d ose series) HPV VACCINE (1 - 2-dose series) [facility] Start: 2007 COVID-19 VACCINE (1) COVID-19 VACCIN E (1) [facility] Start: 2002 COVID-19 VACCINE (#1) COVID-19 VACCI NE (#1) [facility] End: 05-09-2024 EMG(NEURO/NI) EMG(NEURO/NI) EMG Routine Sacroiliac pain Lumbar disc herniation Degenerative arthropathy of spinal facet joint Myalgia Spinal stenosis of lumbar region, unspecified whether neurogenic claudication present 1 Occurrences starting 05/10/2023 until 05/09/2024 [facility] Work Phone: Comment on above: 1 Occurrences starti ng 05/10/2023 until 05/09/2024 End: 06-08-2024 MR Lumbar spine WO contrast MRI LUMBAR SPINE WO IVCON Radiology Routine Spinal stenosis of lumbar region, unspecified whether neurogenic claudication present 1 Occurrences starting 05/10/2023 until 06/08/2024 [facility] Work Phone: Comment on above: 1 Occurrences starti ng 05/10/2023 until 06/08/2024 SPINE INTERVENTION PROCEDURE SPINE INTERVENTION PROCEDURE Procedures Routine Lumbar disc herniation Lumbar radiculopathy, chronic Ordered: 06/28/2023 [facility] Work Phone: Comment on above: Ordered: 06/28/2023 [facility] Immunizations Immunization Date Immunization Notes Care Provider Fa [facility] 12-13-2021 influenza virus vacc ine, unspecified formulation Daya Patterson RT(R) [facility] 10-06-2020 hepatitis B vaccine, pediatric or pediatric/adolescent dosage Emani Gregg MD Work Phone: [facility] 10-06-2020 varicella virus vaccine Caty Gregg MD Work Phone: [facility] 10-06-2020 hepatitis B vaccine, unspecified formulation Ama Rapp OD Work Phone: [facility] Payers Date Payer Category Payer Medicaid [employer] [id number] 2022-Present [phone] [address] [place] [address] Medicaid [id number] 2021 Unknown [id number] 2018 Unknown MMO [employer] [id number] 2018-Present [phone] [address] [place] [address] PPO [id number] 2018 Unknown MMO MMO [employer] PPO [id number] 2018-Present [phone] [address] [place] [address] PPO [id number] 2012 Medicaid [facility] MEDIC AID [facility] MEDICAID [id number] 2012-Present [phone] [address] [place] [address] Medicaid [id number] 2002 Unknown [id number] 2002 Unknown [id number] 2002 Unknown [id number] 2002 Unknown [id number] 2002 Unknown [id number] 2002 Unknown [id number] 2002 Unknown [id number] 2002 Unknown [id number] 2002 Unknown [id number] 2002 Unknown [id number] 1975 Unknown [id number] 1975 Unknown [id number] 1959 Unknown [id number] 1959 Unknown [id number] Social History Date Type Detail Facility Start: 06-18-2020 End: 01-10-2023 Tobacco smoking status Never smoked tobacco (finding) [facility] Start: 10-10-2022 End: 06-26-2023 Sex Assigned At Female [facility] Start: 01-23-2018 End: 01-10-2023 Tobacco use and exposure Smokeless tobacco non-user [facility] Start: 2002 Sex Assigned At Not on file [facility] Start: 10-10-2022 End: 06-26-2023 History of Social function [facility] National Score (1-100), lower number is lower risk 76 [facility] Functional Status Date Assessment Result Facility 04-25-2023 Functional Status N/A [facility] Clinical Notes 06-08-2021 to 06-28-2023 Telephone Encounter - Ayanna Machado MA - 06/28/2023 11:11 AM EDTTelephone Encounter - Ayanna Machado MA - 06/28/2023 11:11 AM Tasha Hogue DO - 06/28/2023 10:43 AM EDT Note Date & Type Note Facility 06-28-2023 Note HNO ID: [id number] Author: TASHA MUÑOZ DO Service: ? Author Type: Physician Type: Progress Notes Filed: 06/28/2023 12:47 Note Text: SPINE CARE PATH LOW BACK PAIN: CHRONIC FOLLOW UP SUBJECTIVE HISTORY OF PRESENT ILLNESS: Reason for Visit: follow up low back/bilateral buttock, lateral thigh pain Joanne Mcgee is seen for 4 week follow up. She is feeling the same. The distribution of symptoms is unchanged. Pain is currently 6 out of 10. Patient states no changes in symptoms. Patient here to discuss results of imaging and MRI and plan of care. Interim treatment has included NSAIDS for 3 Months or Greater (Tylenol / acetaminophen). Adherence with treatment has been fair . Adverse Effects: None Interim studies Obtained and Reviewed: X-rays, MRI, EMG PREVIOUS TREATMENTS IN THE LAST SIX MONTHS Active conservative therapy in the last six months (see below) 1. Physical therapy: Yes - Dad is PT - went over exercises with pat 2. Home exercise program after PT: Yes - stretching daily for 60 minutes 3. A physician supervised home exercise program (HEP): No 4. 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 What are your limitations: None Passive conservative therapy in the last six months (see below) 1. NSAIDS: Tylenol - last dose two days ago 2. Prescription pain medication: Prednisone - did not help 3. Acupuncture: No 4. Tens unit: No YELLOW AND BLUE FLAGS No-Neg Attitude; Back Pain is Disabling No-Avoiding Activity (for Fear of Pain) No-Depression or Anxiety Disorders No-Social Problems No-Substance Use Disorder No-Job Dissatisfaction No-Financial Disincentives Patient Entered Questionnaires Oswestry Score: Pain: 1 - The pain is bad, but I can manage without having to take pain medication. Personal Care: 0 - I can take care of myself normally without causing increased pain. Liftin - I can lift heavy weights, but it causes increased pain. Walkin - Pain prevents me from walking more than 1 mile. Sittin - Pain prevents me from sitting for more than 1 hour. Standin - Pain prevents me from standing more than 1 hour. Sleepin - I can sleep well only by using pain medication. Social Life: 3 - Pain prevents me from going out very often. Travelin - I can travel anywhere, but it increases my pain. Employment/Homemakin - My normal homemaking/job activities increase my pain, but I can still perform all that is required of me. Score: 21/50 Oswestry Interpretation: 20-40% = Moderate disability 06/26/2023 Spine Questions Pain Location: Lower back Pain Duration: More than 5 years Pain over last 6 months: Every day or nearly every day in the past 6 months Symptoms from neck/cervical spine: No Employment Status: Working now Involved in law suit/legal claim: No 06/26/2023 Spine Red Flags Any type of cancer: No Unexplained fever: No Bowel or bladder disfunction: No Unintentional weight loss: No Osteoporosis: No PROMIS Score Percentiles 06/26/2023 Physical Health Physical Function Percentile 14 Sleep Percentile 34 Fatigue Percentile 8 Pain Interference Percentile 10 06/26/2023 PROMIS SOCIAL ROLE SCORE Social Role Satisfaction Percentile 34 06/26/2023 PROMIS Global Health Scale Physical Health Percentile 7 Mental Health Percentile 19* Percentiles provide an indication of how the patient's score ranks in relation to the general population. Higher percentile rankings indicate better function/quality of life. 50th percentile is the average of the general population and indicates half of respondents had a worse score. Depression Screenin06/26/2023 PHQ-9 Score 6 06/26/2023 PHQ-9 Self-harm Question Question 9 Not at all PHQ-9 Self-Harm (Item 9) response options: 0 Not at all 1 Several days 2 More than half the days 3 Nearly every day PHQ-9 Levels: 0-4 No - mild depression 5-9 Mild depression 10-14 Moderate depression 15-19 Moderately severe depression 20-27 Severe depression ACTIVE PROBLEM LIST Chronic Pain of Left Knee Chronic Pain of Right Knee Adolescent Idiopathic Scoliosis of Thoracic Region Abdominal Tenderness Abdominal Pain No past medical history on file. PAST SURGICAL HISTORY Procedure Laterality Date OVARIAN CYSTECTOMY Left PAST SURGICAL HISTORY OF tonsoles PAST SURGICAL HISTORY OF toe PAST SURGICAL HISTORY OF Nose terminate bone Social History Tobacco Use Smoking status: Never Smokeless tobacco: Never No family history on file. ALLERGIES No Known Allergies CURRENT MEDICATIONS: buPROPion SR (WELLBUTRIN SR) 100 mg 12 hr tablet Take 100 mg by mouth every morning. propranolol (INDERAL) 40 mg tablet Take 1 tablet by mouth every 12 hours. hydrOXYzine HCl (ATARAX) 25 mg tablet Take 25 mg by mouth three times daily as needed. medroxyprogesterone acetate (DEPO-PROVERA INTRAMUSC.) Inject 1 Dose intramuscularly every 3 months. dicyclomine (BENTYL) 10 mg capsu (more content not included)... [facility] 06-28-2023 Telephone encounter Note Patient was seen in office today. Spoke to patient and mother in reguards to pre procedure instructions. 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 Pt advised to arrive 30 min prior. Pt advised will also receive a call the day before from the surgery center to confirm date/time. Pt can eat and drink as normal. and Pt can take medications as normal. No alcohol 24 hours prior. Advised on location of [address] Pt will receive a follow up call several days after by a logistics team leader. If you experience any increase in weakness, difficulty walking or significant increase in pain that last more than 4 hours, please proceed to the Emergency Room and tell them you had a spine procedure done recently. Additionally, call us and notify us of these symptoms. Please call [phone] if you have any questions. Pt verbalized understanding. [facility] 06-28-2023 Miscellaneous Notes Patient was seen in office today. Spoke to patient and mother in reguards to pre procedure instructions. 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 Pt advised to arrive 30 min prior. Pt advised will also receive a call the day before from the surgery center to confirm date/time. Pt can eat and drink as normal. and Pt can take medications as normal. No alcohol 24 hours prior. Advised on location of [address] Pt will receive a follow up call several days after by a logistics team leader. If you experience any increase in weakness, difficulty walking or significant increase in pain that last more than 4 hours, please proceed to the Emergency Room and tell them you had a spine procedure done recently. Additionally, call us and notify us of these symptoms. Please call [phone] if you have any questions. Pt verbalized understanding. documented in this encounter [facility] 06-28-2023 History of Presen t illness Narrative SPINE CARE PATH LOW BACK PAIN: CHRONIC FOLLOW UP SUBJECTIVE HISTORY OF PRESENT ILLNESS: Reason for Visit: follow up low back/bilateral buttock, lateral thigh pain Joanne Mcgee is seen for 4 week follow up. She is feeling the same. The distribution of symptoms is unchanged. Pain is currently 6 out of 10. Patient states no changes in symptoms. Patient here to discuss results of imaging and MRI and plan of care. Interim treatment has included NSAIDS for 3 Months or Greater (Tylenol / acetaminophen). Adherence with treatment has been fair . Adverse Effects: None Interim studies Obtained and Reviewed: X-rays, MRI, EMG PREVIOUS TREATMENTS IN THE LAST SIX MONTHS Active conservative therapy in the last six months (see below) 1. Physical therapy: Yes - Dad is PT - went over exercises with pat 2. Home exercise program after PT: Yes - stretching daily for 60 minutes 3. A physician supervised home exercise program (HEP): No 4. 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 What are your limitations: None Passive conservative therapy in the last six months (see below) 1. NSAIDS: Tylenol - last dose two days ago 2. Prescription pain medication: Prednisone - did not help 3. Acupuncture: No 4. Tens unit: No YELLOW & BLUE FLAGS No-Neg Attitude; Back Pain is Disabling No-Avoiding Activity (for Fear of Pain) No-Depression or Anxiety Disorders No-Social Problems No-Substance Use Disorder No-Job Dissatisfaction No-Financial Disincentives Patient Entered Questionnaires Oswestry Score: Pain: 1 - The pain is bad, but I can manage without having to take pain medication. Personal Care: 0 - I can take care of myself normally without causing increased pain. Liftin - I can lift heavy weights, but it causes increased pain. Walkin - Pain prevents me from walking more than 1 mile. Sittin - Pain prevents me from sitting for more than 1 hour. Standin - Pain prevents me from standing more than 1 hour. Sleepin - I can sleep well only by using pain medication. Social Life: 3 - Pain prevents me from going out very often. Travelin - I can travel anywhere, but it increases my pain. Employment/Homemakin - My normal homemaking/job activities increase my pain, but I can still perform all that is required of me. Score: 21/50 Oswestry Interpretation: 20-40% = Moderate disability 06/26/2023 Spine Questions Pain Location: Lower back Pain Duration: More than 5 years Pain over last 6 months: Every day or nearly every day in the past 6 months Symptoms from neck/cervical spine: No Employment Status: Working now Involved in law suit/legal claim: No 06/26/2023 Spine Red Flags Any type of cancer: No Unexplained fever: No Bowel or bladder disfunction: No Unintentional weight loss: No Osteoporosis: No PROMIS Score Percentiles 06/26/2023 Physical Health Physical Function Percentile 14 Sleep Percentile 34 Fatigue Percentile 8 Pain Interference Percentile 10 06/26/2023 PROMIS SOCIAL ROLE SCORE Social Role Satisfaction Percentile 34 06/26/2023 PROMIS Global Health Scale Physical Health Percentile 7 Mental Health Percentile 19* Percentiles provide an indication of how the patient's score ranks in relation to the general population. Higher percentile rankings indicate better function/quality of life. 50th percentile is the average of the general population and indicates half of respondents had a worse score. Depression Screenin06/26/2023 PHQ-9 Score 6 06/26/2023 PHQ-9 Self-harm Question Question 9 Not at all PHQ-9 Self-Harm (Item 9) response options: 0 Not at all 1 Several days 2 More than half the days 3 Nearly every day PHQ-9 Levels: 0-4 No - mild depression 5-9 Mild depression 10-14 Moderate depression 15-19 Moderately severe depression 20-27 Severe depression ACTIVE PROBLEM LIST Chronic Pain of Left Knee Chronic Pain of Right Knee Adolescent Idiopathic Scoliosis of Thoracic Region Abdominal Tenderness Abdominal Pain No past medical history on file. PAST SURGICAL HISTORY Procedure Laterality Date OVARIAN CYSTECTOMY Left PAST SURGICAL HISTORY OF tonsoles PAST SURGICAL HISTORY OF toe PAST SURGICAL HISTORY OF Nose terminate bone Social History Tobacco Use Smoking status: Never Smokeless tobacco: Never No family history on file. ALLERGIES No Known Allergies CURRENT MEDICATIONS: buPROPion SR (WELLBUTRIN SR) 100 mg 12 hr tablet Take 100 mg by mouth every morning. propranolol (INDERAL) 40 mg tablet Take 1 tablet by mouth every 12 hours. hydrOXYzine HCl (ATARAX) 25 mg tablet Take 25 mg by mouth three times daily as needed. medroxyprogesterone acetate (DEPO-PROVERA INTRAMUSC.) Inject 1 Dose intramuscularly every 3 months. dicyclomine (BENTYL) 10 mg capsule Take 2 capsules by mouth three times daily as needed. (Patient not taking: Reported on 06/28/2023) OBJECTIVE PHYSICAL EXAM: Ht 162.6 cm (5' 4 ) Wt 65.8 kg (145 lb) LMP 01/25/2021 (Approximate) BMI 24.89 kg/m SIGNATURE: Tasah Muñoz DO PATIENT NAME: Joanne Mcgee DATE: June 28, 2023 TIME: 10:43 AM I agree with the Chief Complaint, ROS, and Past Histories independently gathered by the clinical applications support specialist and the remaining scribed note accurately describes my personal service to the patient and I have edited the above note to reflect this. Pt presents for follow up today. Pt states that she is not any better. Did PT and additional studies. Worse with standing, walking and lifting. Here with mom. Physical Exam: GENERAL APPEARANCE: WNWH, NAD NEURO - Alert and oriented, cooperative, answers questions appropriately SPEECH - No slurring noted. HEAD - Normal cephalic, Atraumatic EYES - Extra ocular movement intact, no conjunctivitis, no nystagmus. EARS - No drainage noted, pinna intact NOSE - No epistaxis noted THROAT - No thyromegaly, no gross lymphadenopathy GAIT - no significant new antalgic gait noted MOTOR - no new motor weakness in b/l quads. SENSORY - No new sensory complaints unless noted earlier in notes. ROS: Musculoskeltal exam as above. No bowel or bladder incontinence. Denies SOB Radiology: Reports reviewed. Lumbar spine MRI :06/05/23 Report available in computer. Degenerative changes are most pronounced at L4-L5 with interval development of a posterior disc extrusion slightly eccentric to the right resulting in moderate narrowing of the right lateral recess and crowding of the descending right L5 nerve roots. No substantial central or foraminal stenosis. Levoscoliosis is present centered at T10-T11. Scoliosis X-rays: 11/25/22 Report available in computer. Again seen is thoracic levoscoliosis, similar to prior. The visualized thoracic vertebral body heights are maintained. Lumbar spine MRI: 08/06/18 Report available in computer. Levoscoliotic curvature of the lower thoracic spine with compensatory rightward convex curvature in the lumbar spine. Mild marrow edema involving the left L5 pedicle and superior facet, likely reflecting stress related changes from altered biomechanics due to scoliosis. Small central disc protrusion at L3-L4 and mild degenerative facet arthropathy on the left at L4-L5. The lumbar canal and neural foramina are patent. Impression: see diagnosis. Plan: Discussed evidence based options including use of medications, non-surgical and surgical options. Educated about likely pathology and reviewed anatomy and prognosis. At present, pt would like to continue with non surgical care. Patient has had pain for several years. She is aware of her MRI findings. I reviewed her EMG studies also. She is interested in spinal injections. I reviewed this option with her in detail. She would like to proceed with this. Interventional pain procedure epidural injection recommended. Verbal consent was obtained. Risks, benefits, alternatives and personnal were explained. Procedure was described in detail to patients satisfaction. Patient verblizes understanding. Patient is recommended to cancel the procedure if patient has any concerns. Patient to follow up with me at the earliest convenience. ( B/l L4-5 ) May have to modify level(s) / location/ approach based on any new relevant information/ imaging/ symptom presentation and response to treatments. The majority of the visit was spent counseling and/or coordinating care for the patient on the date of the service which included preparing to see the patient, [id number] patient care, completing clinical documentation, obtaining and/or reviewing separately obtained history, performing a medically appropriate examination, and educating the patient/family/caregiver and ordering medications, tests, or procedures. Follow up with primary physician for routine care, blood pressure evaluation, labwork, and physical exam as scheduled as well as for any other medical concerns. I have answered all the questions regarding their diagnosis, care and treatment plan to patients satisfaction during today's visit. Pt verbalizes understanding of current diagnosis and treatment plan. documented in this encounter [facility] 06-05-2023 Note HNO ID: [id number] Author: ASHISH GUERRERO DO Service: ? Author Type: Physician Type: Progress Notes Filed: 06/05/2023 16:17 Note Text: UNIVERSAL PROTOCOL / SAFETY CHECKLIST Procedure to be Performed: EMG Sign In: A Moment of CARE was completed. Personnel directly involved with the procedure wore the appropriate PPE (Personal Protective Equipment). Patient/Surrogate Stated/Verified: PATIENT VERIFIED(optional for EMERGENT procedures): Patient name, Date of , Relevant allergies, and The intended procedure Time Out Communication: Intended patient and procedure match the source documents. Correct side/site marked and visible. Sign Out: SIGN OUT (optional for EMERGENT procedures): Post-procedure follow-up management communicated and Plan of Care Visit completed when applicable. Leanne Mcmullen EMG Tech Ashish Guerrero DO Staff Neurologist [facility] [place] [facility] 04-15-2024 History of Presen t illness Narrative UNIVERSAL PROTOCOL / SAFETY CHECKLIST Procedure to be Performed: EMG Sign In: A Moment of CARE was completed. Personnel directly involved with the procedure wore the appropriate PPE (Personal Protective Equipment). Patient/Surrogate Stated/Verified: PATIENT VERIFIED(optional for EMERGENT procedures): Patient name, Date of , Relevant allergies, and The intended procedure Time Out Communication: Intended patient and procedure match the source documents. Correct side/site marked and visible. Sign Out: SIGN OUT (optional for EMERGENT procedures): Post-procedure follow-up management communicated and Plan of Care Visit completed when applicable. Leanne Mcmullen EMG Tech Ashish Guerrero DO Staff Neurologist [facility] [place] documented in this encounter [facility] 06-05-2023 Miscellaneous Notes Radiology Service Progress Note PATIENT NAME: Joanne Mcgee DATE OF SERVICE: June 05, 2023 TIME: 3:00 PM PATIENT IDENTITY VERIFICATION COMPLETED USING TWO (2) IDENTIFIERS: Name and Date of confirmed by patient verbally and Name and Date of confirmed by identification band. FALL SCREENING: Has the patient had 2 falls in the last year or 1 fall with injury or currently using an Ambulatory Assistive Device (Walker, Cane, Wheelchair, Crutches, etc.)? No PATIENT GENDER DATA: Female. status: : No status: NO. PATIENT RELEVANT IMPLANT DATA REVIEWED: Yes PATIENT PRESENTS WITH AN IMPLANTABLE OR ATTACHED NOVELTY BALLOON ASSEMBLER AND PACKER: No RADIOLOGY DEPARTMENT: MR; Exam(s) Completed: Spine: Lumbar spine PERIPHERAL IV DATA: Not applicable SIGNED BY: Verónica Hernandez linux system engineer June 05, 2023 3:00 PM documented in this encounter [facility] 05-10-2023 Note HNO ID: [id number] Author: ANG CHAKRABORTY RT(R) Service: Radiology Author Type: Corporate Scheduler Type: Progress Notes Filed: 05/10/2023 10:07 Note Text: Radiology Service Progress Note PATIENT NAME: Joanne Mcgee DATE OF SERVICE: May 10, 2023 TIME: 10:07 AM PATIENT IDENTITY VERIFICATION COMPLETED USING TWO (2) IDENTIFIERS: Name and Date of confirmed by patient verbally and Name and Date of confirmed by identification band. FALL SCREENING: Has the patient had 2 falls in the last year or 1 fall with injury or currently using an Ambulatory Assistive Device (Walker, Cane, Wheelchair, Crutches, etc.)? No PATIENT GENDER DATA: Female. status: : No status: NO. PATIENT RELEVANT IMPLANT DATA REVIEWED: Not Applicable PATIENT PRESENTS WITH AN IMPLANTABLE OR ATTACHED NOVELTY BALLOON ASSEMBLER AND PACKER: No RADIOLOGY DEPARTMENT: General X-ray: Exam(s) Completed: Spine X-Ray(s): Lumbar AP / LAT / L5-S1 PERIPHERAL IV DATA: Not applicable SIGNED BY: RT Filemon(R) May 10, 2023 10:07 AM [facility] 05-10-2023 Note HNO ID: [id number] Author: TASHA MUÑOZ, Service: ? Author Type: Physician Type: Progress Notes Filed: 05/10/2023 09:42 Note Text: Spine Care Path Low Back Pain - Chronic (> 12 weeks) Initial Exam SUBJECTIVE HISTORY OF PRESENT ILLNESS: Joanne Mcgee is a 23 year old female who presents with a chief complaint of low back pain and is seen in consultation requested by Dr. Nelsy Conner for an opinion regarding LBP radiating to the BL buttocks and down the BL lateral thighs. Pt does not know the last time she was pain free. Pt has a history of Scoliosis. My final recommendations will be communicated back to the requesting physician by way of shared medical record or letter via [place] mail. Other Issues Addressed at the Visit Today: None. Precipitating Event: None PAIN EVALUATION 05/10/2023 0854 Pain Level: 7 Pain Location: -- LBP radiating to the BL buttocks and down the BL lateral thighs Description: -- Sharp Duration Units: Years Frequency: Continuous Intervention/Comfort measure: -- PT, Stretching/HEP, Dry needling, Heat, Ice, Medications Pain Radiation: as noted above. Aggravating Factors: Bending over, Movement, Walking or Standing too long Alleviating Factors: Heat Pain Ratio: The lower back pain is greater than the other regions of pain Prior Therapy: Ice, Heat, Dry needling, Mobic, Formal PT years ago , Tylenol X current PREVIOUS TREATMENTS IN THE LAST SIX MONTHS Active conservative therapy in the last six months (see below) 1. Physical therapy: Yes Dad is a PT and went over exercises with pt recently at home-Pt is doing Stretching/HEP daily for >60 minutes 2. Home exercise program after PT: Yes See above 3. A physician supervised home exercise program (HEP): No 4. 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 What are your limitations: None Passive conservative therapy in the last six months (see below) 1. NSAIDS: Ibuprofen 3 tabs taken yesterday 2. Prescription pain medication: Prednisone did not help 3. Acupuncture: No 4. Tens unit: No Litigation: No Workers' Compensation: No YELLOW AND BLUE FLAGS No-Neg Attitude; Back Pain is Disabling No-Avoiding Activity (for Fear of Pain) No-Depression or Anxiety Disorders No-Social Problems No-Substance Use Disorder No-Job Dissatisfaction No-Financial Disincentives Patient Entered Questionnaires Oswestry Score: Pain: 4 - Pain medication provides me with little relief from pain. Personal Care: 1 - I can take care of myself normally, but it increases my pain. Liftin - Pain prevents me from lifting heavy weights off the floor, but I can manage if the weights are conveniently positioned (eg on a table). Walkin - Pain does not prevent me from walking any distance. Sittin - I can sit in any chair as long as I like. Standin - I can stand as long as I want, but it increases my pain. Sleepin - I can sleep well only by using pain medication. Social Life: 2 - Pain prevents me from participating in more energetic activities (eg. sports, dancing). Travelin - I can travel anywhere, but it increases my pain. Employment/Homemakin - My normal homemaking/job activities increase my pain, but I can still perform all that is required of me. Score: 13/50 Oswestry Interpretation: 0-20% = Mild disability PROMIS Score Percentiles Percentiles provide an indication of how the patient's score ranks in relation to the general population. Higher percentile rankings indicate better function/quality of life. 50th percentile is the average of the general population and indicates half of respondents had a worse score. Depression Screening: PHQ-9 Self-Harm (Item 9) response options: 0 Not at all 1 Several days 2 More than half the days 3 Nearly every day PHQ-9 Levels: 0-4 No - mild depression 5-9 Mild depression 10-14 Moderate depression 15-19 Moderately severe depression 20-27 Severe depression ACTIVE PROBLEM LIST Chronic Pain of Left Knee Chronic Pain of Right Knee Adolescent Idiopathic Scoliosis of Thoracic Region Abdominal Tenderness Abdominal Pain No past medical history on file. PAST SURGICAL HISTORY Procedure Laterality Date OVARIAN CYSTECTOMY Left PAST SURGICAL HISTORY OF tonsoles PAST SURGICAL HISTORY OF toe PAST SURGICAL HISTORY OF Nose terminate bone Social History Tobacco Use Smoking status: Never Smokeless tobacco: Never No family history on file. ALLERGIES No Known Allergies CURRENT MEDICATIONS: sertraline (ZOLOFT) 50 mg tablet Take 50 mg by mouth once daily. hydrOXYzine HCl (ATARAX) 25 mg tablet Take 25 mg by mouth three times daily as needed. Mesalamine (PENTASA) 500 mg CR capsule Take 4 capsules by mouth twice daily. dicyclomine (BENTYL) 10 mg capsule Take 2 capsules by mouth three times daily as needed. (Patient not taking: Reported on 10/10/2022) magnesium citrate (CITRATE OF MAGNESIA) solution Take 10 oz as instructed for (more content not included)... [facility] 05-10-2023 History of Presen t illness Narrative Radiology Service Progress Note PATIENT NAME: Joanne Mcgee DATE OF SERVICE: May 10, 2023 TIME: 10:07 AM PATIENT IDENTITY VERIFICATION COMPLETED USING TWO (2) IDENTIFIERS: Name and Date of confirmed by patient verbally and Name and Date of confirmed by identification band. FALL SCREENING: Has the patient had 2 falls in the last year or 1 fall with injury or currently using an Ambulatory Assistive Device (Walker, Cane, Wheelchair, Crutches, etc.)? No PATIENT GENDER DATA: Female. status: : No status: NO. PATIENT RELEVANT IMPLANT DATA REVIEWED: Not Applicable PATIENT PRESENTS WITH AN IMPLANTABLE OR ATTACHED NOVELTY BALLOON ASSEMBLER AND PACKER: No RADIOLOGY DEPARTMENT: General X-ray: Exam(s) Completed: Spine X-Ray(s): Lumbar AP / LAT / L5-S1 PERIPHERAL IV DATA: Not applicable SIGNED BY: RT Filemon(Dinorah) May 10, 2023 10:07 AM documented in this encounter [facility] 05-10-2023 History of Presen t illness Narrative Images from the original note were not included. Spine Care Path Low Back Pain - Chronic (> 12 weeks) Initial Exam SUBJECTIVE HISTORY OF PRESENT ILLNESS: Joanne Mcgee is a 23 year old female who presents with a chief complaint of low back pain and is seen in consultation requested by Dr. Nelsy Conner for an opinion regarding LBP radiating to the BL buttocks and down the BL lateral thighs. Pt does not know the last time she was pain free. Pt has a history of Scoliosis. My final recommendations will be communicated back to the requesting physician by way of shared medical record or letter via [place] mail. Other Issues Addressed at the Visit Today: None. Precipitating Event: None PAIN EVALUATION 05/10/2023 0854 Pain Level: 7 Pain Location: -- LBP radiating to the BL buttocks and down the BL lateral thighs Description: -- Sharp Duration Units: Years Frequency: Continuous Intervention/Comfort measure: -- PT, Stretching/HEP, Dry needling, Heat, Ice, Medications Pain Radiation: as noted above. Aggravating Factors: Bending over, Movement, Walking or Standing too long Alleviating Factors: Heat Pain Ratio: The lower back pain is greater than the other regions of pain Prior Therapy: Ice, Heat, Dry needling, Mobic, Formal PT years ago , Tylenol X current PREVIOUS TREATMENTS IN THE LAST SIX MONTHS Active conservative therapy in the last six months (see below) 1. Physical therapy: Yes Dad is a PT and went over exercises with pt recently at home-Pt is doing Stretching/HEP daily for >60 minutes 2. Home exercise program after PT: Yes See above 3. A physician supervised home exercise program (HEP): No 4. 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 What are your limitations: None Passive conservative therapy in the last six months (see below) 1. NSAIDS: Ibuprofen 3 tabs taken yesterday 2. Prescription pain medication: Prednisone did not help 3. Acupuncture: No 4. Tens unit: No Litigation: No Workers' Compensation: No YELLOW & BLUE FLAGS No-Neg Attitude; Back Pain is Disabling No-Avoiding Activity (for Fear of Pain) No-Depression or Anxiety Disorders No-Social Problems No-Substance Use Disorder No-Job Dissatisfaction No-Financial Disincentives Patient Entered Questionnaires Oswestry Score: Pain: 4 - Pain medication provides me with little relief from pain. Personal Care: 1 - I can take care of myself normally, but it increases my pain. Liftin - Pain prevents me from lifting heavy weights off the floor, but I can manage if the weights are conveniently positioned (eg on a table). Walkin - Pain does not prevent me from walking any distance. Sittin - I can sit in any chair as long as I like. Standin - I can stand as long as I want, but it increases my pain. Sleepin - I can sleep well only by using pain medication. Social Life: 2 - Pain prevents me from participating in more energetic activities (eg. sports, dancing). Travelin - I can travel anywhere, but it increases my pain. Employment/Homemakin - My normal homemaking/job activities increase my pain, but I can still perform all that is required of me. Score: 13/50 Oswestry Interpretation: 0-20% = Mild disability PROMIS Score Percentiles Percentiles provide an indication of how the patient's score ranks in relation to the general population. Higher percentile rankings indicate better function/quality of life. 50th percentile is the average of the general population and indicates half of respondents had a worse score. Depression Screening: PHQ-9 Self-Harm (Item 9) response options: 0 Not at all 1 Several days 2 More than half the days 3 Nearly every day PHQ-9 Levels: 0-4 No - mild depression 5-9 Mild depression 10-14 Moderate depression 15-19 Moderately severe depression 20-27 Severe depression ACTIVE PROBLEM LIST Chronic Pain of Left Knee Chronic Pain of Right Knee Adolescent Idiopathic Scoliosis of Thoracic Region Abdominal Tenderness Abdominal Pain No past medical history on file. PAST SURGICAL HISTORY Procedure Laterality Date OVARIAN CYSTECTOMY Left PAST SURGICAL HISTORY OF tonsoles PAST SURGICAL HISTORY OF toe PAST SURGICAL HISTORY OF Nose terminate bone Social History Tobacco Use Smoking status: Never Smokeless tobacco: Never No family history on file. ALLERGIES No Known Allergies CURRENT MEDICATIONS: sertraline (ZOLOFT) 50 mg tablet Take 50 mg by mouth once daily. hydrOXYzine HCl (ATARAX) 25 mg tablet Take 25 mg by mouth three times daily as needed. Mesalamine (PENTASA) 500 mg CR capsule Take 4 capsules by mouth twice daily. dicyclomine (BENTYL) 10 mg capsule Take 2 capsules by mouth three times daily as needed. (Patient not taking: Reported on 10/10/2022) magnesium citrate (CITRATE OF MAGNESIA) solution Take 10 oz as instructed for cleanout (Patient not taking: Reported on 05/08/2020 ) medroxyprogesterone acetate (DEPO-PROVERA INTRAMUSC.) Inject 1 Dose intramuscularly every 3 months. REVIEW OF SYSTEMS: PAIN ASSESSMENT: See HPI. GENERAL: Denies fever, chills malaise and weight loss. HEENT: No recent change in vision or hearing. CARDIOVASCULAR: Tachycardia RESPIRATORY: Denies SOB, sputum production, and hemoptysis. GI: Denies GI ulcers, inflammatory disease, or liver disease. : Denies change in frequency or urgency, kidney disease, and burning with urination. MUSCULOSKELETAL: None other than noted above SKIN: Denies rash or itching. OBJECTIVE: PHYSICAL EXAM LMP 01/25/2021 (Approximate) SIGNATURE: Tasha Muñoz DO PATIENT NAME: Joanne Mcgee DATE: May 10, 2023 TIME: 7:30 AM I agree with the Chief Complaint, ROS, and Past Histories independently gathered by the clinical applications support specialist and the remaining scribed note accurately describes my personal service to the patient and I have edited the above note to reflect this. See notes for physical exam and treatment plan. CC - LBP b/l buttock / lateral leg pain. Constant. Worse with bending over. Heat helps. Has done PT/ Chiro. Does HEP regularly. Steroids did not help. Patient presents with mom. PHYSICAL EXAM: GENERAL APPEARANCE - well nourished, well hydrated, no apparent distress SKIN - No skin breakdown noted over lumbar spine. Numerous tattoos HEAD - Normal cephalic, atraumatic EYES - Extra ocular movement intact, no conjunctivitis, no nystagmus. EARS - No drainage noted, pinna intact NOSE - No epistaxis noted THROAT - No thyromegaly, no gross lymphadenopathy LUNGS - Normal respiratory effort, CTA bilaterally CARDIAC - S1S2 VASCULAR - No evidence of peripheral edema, No significant varicosity ABDOMEN - no guarding noted NEURO - Alert and oriented, cooperative, answers questions appropriately GAIT - No significant antalgic gait noted. Able to demonstrate heel and toe stand/walk smoothly. SENSORY EXAM - Grossly intact to superficial light touch bilaterally to lower limbs MOTOR STRENGTH DURING SEATED NEURO EXAM - No apparent weakness bilaterally in Hip flexors, knee extensors, plantar flexors, dorsiflexors and extensor hallux longus. MUSCLE STRETCH REFLEXES - symmetric bilaterally in patella and achilles. Negative Rodrick's b/l ROM - Lumbar flexion and extension is within functional limits. Lateral bending to rt and lt is within funtional limits. HIP ROM - no significant loss in external rotation and internal rotation b/l. KNEE ROM - No significant loss in terminal extension b/l. ANKLE ROM - no significant loss in plantar flexion and dorsiflexion b/l. MUSCLE MASS - No gross muscle atrophy or asymmetry noted bilaterally in lower limb. TENDERNESS - No significant reproduction of pain with palpation of greater trochanter bilaterally. Mild pain with palpation over b/l gluteal muscles. Mild pain with palpation over b/l L3-s1 paraspinous muscles. Negative thigh Thrust b/l Fabers test was negative b/l PACE test was negative b/l Distraction test was negative b/l Compression test was negative b/l Stinchfield's test negative b/l MANOJ SIGNS - 1) Tenderness: Appropriate 2) Simulation/Axial Loading/ROT: Appropriate 3) Distraction: Seated SLR: Appropriate 4) Regional Disturbances: Appropriate 5) Overreaction: Negative. NEURO/PHYSICAL SIGNS: No significant babinski, seated straight leg raising test b/l. Patricks test was negative b/l. RADIOGRAPHY: Reports / films reviewed with patient. Scoliosis X-rays: 11/25/22 Report available in computer. Again seen is thoracic levoscoliosis, similar to prior. The visualized thoracic vertebral body heights are maintained. Lumbar spine MRI: 08/06/18 Report available in computer. Levoscoliotic curvature of the lower thoracic spine with compensatory rightward convex curvature in the lumbar spine. Mild marrow edema involving the left L5 pedicle and superior facet, likely reflecting stress related changes from altered biomechanics due to scoliosis. Small central disc protrusion at L3-L4 and mild degenerative facet arthropathy on the left at L4-L5. The lumbar canal and neural foramina are patent. IMPRESSION: See diagnosis. PLAN: Discussed evidence based options including use of medications, non-surgical and surgical options. Educated about likely pathology and reviewed anatomy and prognosis. At present, pt would like to continue with non surgical care. Patient has had pain for many years. She has been in chiropractic treatment, PT and has had dry needling without any substantial relief. Her pain is worse at the end of the day. Patient currently works 4 jobs and is in school. Will secure lumbar x-rays, EMG and lumbar MRI given the chronicity and lack of gains. We did discuss possible BOT program. Patient did not have significant reproduction of pain with sacroiliac maneuvers. Ordered lumbar spine X-Rays today. Lumbar spine MRI: - R/o HNP vs stenosis vs occult pathology Results will help us with possible planning for invasive options including fluoroscopic guided injections and surgical options. f/u with me for review of study and additional recommendations. Lt LE EMG - R/O sensory motor neuropathy vs radiculopathy. f/u with me for review of study and additional recommendations. The majority of the visit was spent counseling and/or coordinating care for the patient on the date of the service which included preparing to see the patient, [id number] patient care, completing clinical documentation, obtaining and/or reviewing separately obtained history, performing a medically appropriate examination, and educating the patient/family/caregiver and ordering medications, tests, or procedures. Follow up with primary physician for routine care, blood pressure evaluation, labwork, physical exam as scheduled and for any medical concerns. I have answered all the questions regarding patients current diagnosis, care and treatment plan to patients satisfaction during today's visit. Patient verbalize understanding of current diagnosis and treatment plan. Follow up with me as scheduled Notes from todays visit will be forwarded to consulting/requesting physician. Tasha Muñoz DO, MBA documented in this encounter [facility] 05-01-2023 Evaluation + Plan note Diagnostic Tests PendingH. pylori Stool Ag 05/01/23 [facility] 04-25-2023 Hospital Discharg e instructions Patient Education 04/25/2023 19:29:49 Viral Illness, Adult Viral Illness, Adult Viruses are tiny germs that can get into a person's body and cause illness. There are many different types of viruses, and they cause many types of illness. Viral illnesses can range from mild to severe. They can affect various parts of the body. Short-term conditions that are caused by a virus include colds and the flu (influenza). Long-term conditions that are caused by a virus include herpes, shingles, and HIV (human immunodeficiency virus) infection. A few viruses have been linked to certain cancers. What are the causes? Many types of viruses can cause illness. Viruses invade cells in your body, multiply, and cause the infected cells to work abnormally or . When these cells , they release more of the virus. When this happens, you develop symptoms of the illness, and the virus continues to spread to other cells. If the virus takes over the function of the cell, it can cause the cell to divide and grow out of control. This happens when a virus causes cancer. Different viruses get into the body in different ways. You can get a virus by: Swallowing food or water that has come in contact with the virus (is contaminated). Breathing in droplets that have been coughed or sneezed into the air by an infected person. Touching a surface that has been contaminated with the virus and then touching your eyes, nose, or mouth. Being bitten by an insect or animal that carries the virus. Having sexual contact with a person who is infected with the virus. Being exposed to blood or fluids that contain the virus, either through an open cut or during a transfusion. If a virus enters your body, your body's defense system (immune system) will try to fight the virus. You may be at higher risk for a viral illness if your immune system is weak. What are the signs or symptoms? You may have these symptoms, depending on the type of virus and the location of the cells that it invades: Cold and flu viruses: ?Fever. ?Headache. ?Sore throat. ?Muscle aches. ?Stuffy nose (nasal congestion). ?Cough. Digestive system (gastrointestinal) viruses: ?Fever. ?Pain in the abdomen. ?Nausea. ?Diarrhea. Liver viruses (hepatitis): ?Loss of appetite. ?Tiredness. ?Skin or the white parts of your eyes turning yellow (jaundice). Brain and spinal cord viruses: ?Fever. ?Headache. ?Stiff neck. ?Nausea and vomiting. ?Confusion or sleepiness. Skin viruses: ?Warts. ?Itching. ?Rash. Sexually transmitted viruses: ?Discharge. ?Swelling. ?Redness. ?Rash. How is this diagnosed? This condition may be diagnosed based on one or more of the following: Symptoms. Medical history. Physical exam. Blood test, sample of mucus from your lungs (sputum sample), stool sample, or a swab of body fluids or a skin sore (lesion). How is this treated? Viruses can be hard to treat because they live within cells. Antibiotic medicines do not treat viruses because these medicines do not get inside cells. Treatment for a viral illness may include: Resting and drinking plenty of fluids. Medicines to relieve symptoms. These can include rhqx-lwq-fzalxxf medicine for pain and fever, medicines for cough or congestion, and medicines to relieve diarrhea. Antiviral medicines. These medicines are available only for certain types of viruses. Some viral illnesses can be prevented with vaccinations. A common example is the flu shot. Follow these instructions at home: Medicines Take peem-xjg-mogylsl and prescription medicines only as told by your health care provider. If you were prescribed an antiviral medicine, take it as told by your health care provider. Do not stop taking the antiviral even if you start to feel better. Be aware of when antibiotics are needed and when they are not needed. Antibiotics do not treat viruses. You may get an antibiotic if your health care provider thinks that you may have, or are at risk for, a bacterial infection and you have a viral infection. ?Do not ask for an antibiotic prescription if you have been diagnosed with a viral illness. Antibiotics will not make your illness go away faster. ?Frequently taking antibiotics when they are not needed can lead to antibiotic resistance. When this develops, the medicine no longer works against the bacteria that it normally fights. General instructions Drink enough fluids to keep your urine pale yellow. Rest as much as possible. Return to your normal activities as told by your health care provider. Ask your health care provider what activities are safe for you. Keep all follow-up visits as told by your health care provider. This is important. How is this prevented? To reduce your risk of viral illness: Wash your hands often with soap and water for at least 20 seconds. If soap and water are not available, use hand career development specialist. Avoid touching your nose, eyes, and mouth, especially if you have not washed your hands recently. If anyone in your household has a viral infection, clean all household surfaces that may have been in contact with the virus. Use soap and hot water. You may also use bleach that you have added water to (diluted). Stay away from people who are sick with symptoms of a viral infection. Do not share items such as toothbrushes and water bottles with other people. Keep your vaccinations up to date. This includes getting a yearly flu shot. Eat a healthy diet and get plenty of rest. Contact a health care provider if: You have symptoms of a viral illness that do not go away. Your symptoms come back after going away. Your symptoms get worse. Get help right away if you have: Trouble breathing. A severe headache or a stiff neck. Severe vomiting or pain in your abdomen. These symptoms may represent a serious problem that is an emergency. Do not wait to see if the symptoms will go away. Get medical help right away. Call your local emergency services (911 in the [place] Do not drive yourself to the hospital. Summary Viruses are types of germs that can get into a person's body and cause illness. Viral illnesses can range from mild to severe. They can affect various parts of the body. Viruses can be hard to treat. There are medicines to relieve symptoms, and there are some antiviral medicines. If you were prescribed an antiviral medicine, take it as told by your health care provider. Do not stop taking the antiviral even if you start to feel better. Contact a health care provider if you have symptoms of a viral illness that do not go away. This information is not intended to replace advice given to you by your health care provider. Make sure you discuss any questions you have with your health care provider. Document Revised: 06/22/2020 Document Reviewed: 12/17/2019 [employer] Patient Education 2022 [employer]. Follow Up Care 04/25/2023 14:35:02 With:BRAEDEN RAI Address: [address] [place] [phone] Business (1) When:04/28/2023 18:41:43 [facility] 03-27-2023 Evaluation + Plan note Diagnostic Tests PendingANA w/Reflex if POS 03/27/23Urine Culture 03/27/23 [facility] 01-10-2023 Note HNO ID: [id number] Author: Joseph Donovan MD Service: ? Author Type: Physician Type: Progress Notes Filed: 01/10/2023 10:35 AM Note Text: Patient seen by me and I agree with the gale components of the history, exam and plan of care. I have personally confirmed the above findings and concur. Please see their notes for details of the patient encounter. Joseph Donovan M.D. Patient seen by me and I agree with the gale components of the history, exam and plan of care. I have personally confirmed the above findings and concur. Please see their notes for details of the patient encounter. Joseph Donovan M.D. This young lady is having some pain in her left SI joint. We recommended physical therapy and exercise Tylenol as she has some GI issues. If she is no better in the next couple of months would consider selective left-sided SI joint injection. Otherwise she will follow-up as needed. [facility] 01-10-2023 Note HNO ID: [id number] Author: Yoshi Albert MD Service: ? Author Type: Fellow Type: Progress Notes Filed: 01/10/2023 10:35 AM Note Text: This is a 22-year-old female with a past medical history of scoliosis presenting with 2 to 3 months of lower back pain. Patient does not recall an inciting event, no trauma or fall. Is having bilateral lower back pain with intermittent radicular symptoms. Denies any numbness or tingling, bowel or bladder incontinence, saddle anesthesia, needle into the back. Did try a steroid taper along with muscle relaxant a few weeks ago prescribed by PCP which seem to help however pain came back as soon as her prescription ended. Review of systems otherwise unremarkable physical exam: No midline tenderness, no paravertebral muscle tenderness. Patient has positive SI joint tenderness, left greater than right. Positive single-leg extension bilaterally. Negative straight leg test. Assessment and plan: X-ray images from November reviewed, no major changes appreciated, Sullivan angle remains less than 20. Patient likely has SI joint pain at this time. Would recommend physical therapy and at least MRI imaging is indicated at this time given no midline back tenderness. Considered meloxicam however she has Crohn's so recommend scheduled tylenol. If fails to improve, can consider referral for SI joint injection. Yoshi Albert MD Emergency Medicine Primary Care Sports Medicine Fellow, PGY-5 [facility] 01-10-2023 History of Presen t illness Narrative Patient seen by me and I agree with the gale components of the history, exam and plan of care. I have personally confirmed the above findings and concur. Please see their notes for details of the patient encounter. Joseph Donovan M.D. Patient seen by me and I agree with the gale components of the history, exam and plan of care. I have personally confirmed the above findings and concur. Please see their notes for details of the patient encounter. Joseph Donovan M.D. This young lady is having some pain in her left SI joint. We recommended physical therapy and exercise Tylenol as she has some GI issues. If she is no better in the next couple of months would consider selective left-sided SI joint injection. Otherwise she will follow-up as needed. This is a 22-year-old female with a past medical history of scoliosis presenting with 2 to 3 months of lower back pain. Patient does not recall an inciting event, no trauma or fall. Is having bilateral lower back pain with intermittent radicular symptoms. Denies any numbness or tingling, bowel or bladder incontinence, saddle anesthesia, needle into the back. Did try a steroid taper along with muscle relaxant a few weeks ago prescribed by PCP which seem to help however pain came back as soon as her prescription ended. Review of systems otherwise unremarkable physical exam: No midline tenderness, no paravertebral muscle tenderness. Patient has positive SI joint tenderness, left greater than right. Positive single-leg extension bilaterally. Negative straight leg test. Assessment and plan: X-ray images from November reviewed, no major changes appreciated, Sullivan angle remains less than 20. Patient likely has SI joint pain at this time. Would recommend physical therapy and at least MRI imaging is indicated at this time given no midline back tenderness. Considered meloxicam however she has Crohn's so recommend scheduled tylenol. If fails to improve, can consider referral for SI joint injection. Yoshi Albert MD Emergency Medicine Primary Care Sports Medicine Fellow, PGY-5 documented in this encounter [facility] 11-25-2022 Note HNO ID: [id number] Author: Daya Patterson RT(R) Service: ? Author Type: Technologist Type: Progress Notes Filed: 11/25/2022 1:03 PM Note Text: Radiology Service Progress Note PATIENT NAME: Joanne Mcgee DATE OF SERVICE: November 25, 2022 TIME: 1:02 PM PATIENT IDENTITY VERIFICATION COMPLETED USING TWO (2) IDENTIFIERS: Name and Date of confirmed by patient verbally. FALL SCREENING: Has the patient had 2 falls in the last year or 1 fall with injury or currently using an Ambulatory Assistive Device (Walker, Cane, Wheelchair, Crutches, etc.)? No PATIENT GENDER DATA: Female. status: : No status: NO. PATIENT RELEVANT IMPLANT DATA REVIEWED: Yes RADIOLOGY DEPARTMENT: General X-ray: Exam(s) Completed: Spine X-Ray(s): Scoliosis Series PERIPHERAL IV DATA: Not applicable SIGNED BY: FLORY Harris) November 25, 2022 1:02 PM [facility] 11-25-2022 History of Presen t illness Narrative Radiology Service Progress Note PATIENT NAME: Joanne Mcgee DATE OF SERVICE: November 25, 2022 TIME: 1:02 PM PATIENT IDENTITY VERIFICATION COMPLETED USING TWO (2) IDENTIFIERS: Name and Date of confirmed by patient verbally. FALL SCREENING: Has the patient had 2 falls in the last year or 1 fall with injury or currently using an Ambulatory Assistive Device (Walker, Cane, Wheelchair, Crutches, etc.)? No PATIENT GENDER DATA: Female. status: : No status: NO. PATIENT RELEVANT IMPLANT DATA REVIEWED: Yes RADIOLOGY DEPARTMENT: General X-ray: Exam(s) Completed: Spine X-Ray(s): Scoliosis Series PERIPHERAL IV DATA: Not applicable SIGNED BY: FLORY Harris) November 25, 2022 1:02 PM documented in this encounter [facility] 10-10-2022 Note HNO ID: [id number] Author: Ama Rapp OD Service: ? Author Type: DANCE DIRECTOR Type: Progress Notes Filed: 10/10/2022 2:12 PM Note Text: ASSESSMENT/PLAN: 1. 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 2. 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 Best quality vision with RGP, however difficult adaptation. 3. Myopia with astigmatism, bilateral - ICD9: 367.1, 367.20, ICD10: H52.13, H52.203 New spec Rx given. Ama Rapp, RICHIE I have confirmed and edited as necessary the relevant ophthalmic history, ROS, and the exam findings as obtained by others. I have seen and examined this patient. I have discussed the case and the management of this patient's care with the resident or fellow as appropriate. I also have reviewed and agree with the assessment and plan as stated above and agree with all of its relevant components. Ama Rapp OD October 10, 2022 2:09 PM [facility] 10-10-2022 History of Presen t illness Narrative ASSESSMENT/PLAN: 1. 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 2. 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 Best quality vision with RGP, however difficult adaptation. 3. Myopia with astigmatism, bilateral - ICD9: 367.1, 367.20, ICD10: H52.13, H52.203 New spec Rx given. Ama Rapp OD I have confirmed and edited as necessary the relevant ophthalmic history, ROS, and the exam findings as obtained by others. I have seen and examined this patient. I have discussed the case and the management of this patient's care with the resident or fellow as appropriate. I also have reviewed and agree with the assessment and plan as stated above and agree with all of its relevant components. Ama Rapp OD October 10, 2022 2:09 PM documented in this encounter [facility] 06-17-2021 Evaluation + Plan note Diagnostic Tests PendingV Cult & Typing 06/17/21 [facility] 06-15-2021 Miscellaneous Notes Called mother and updated She had ENT surgery last week and was on pain meds post ENT procedure and has not had a BM since then other than yesterday Mom started her on miralax one cap a day to help start her stools again Mom will call if there is no improvement documented in this encounter [facility] 06-08-2021 Hospital Discharg e instructions Patient Education 06/08/2021 15:54:43 Post Op Patient Instructions - FT (Custom) Follow Up Care 06/07/2021 14:13:11 With:Tonny Casarez Address: [address] [place] [phone] Business (1) When:06/16/2021 08:00:00 [facility] Evaluation + Plan note No data available for this section [facility] Evaluation + Plan note Future Appointments Appointment Date:10/04/2021 10:00:00 AM Scheduled Provider: Location:[facility] Services Appointment Type:Surgery PAT COVID Testing Diagnostic Tests PendingMRSA Screen 10/02/21 [facility] Evaluation note Diagnosis Vitreous floater, bilateral- Primary Irregular astigmatism, bilateral Myopia with astigmatism, bilateral [facility] Sacroiliac pain- Primary Disorders of [facility] Lumbar disc herniation- Primary Displacement of lumbar intervertebral disc without myelopathy Sacroiliac pain Disorders of sacrum Degenerative arthropathy of spinal facet joint Spondylosis of unspecified site without mention of myelopathy Myalgia Mylagia and myositis, unspecified Spinal stenosis of lumbar region, unspecified whether neurogenic claudication present [facility] Diagnosis Sacroiliac pain Disorders of sacrum Lumbar disc herniation Displacement of lumbar intervertebral disc without myelopathy Degenerative arthropathy of spinal facet joint Spondylosis of unspecified site without mention of myelopathy Myalgia Mylagia and myositis, unspecified Spinal stenosis of lumbar region, unspecified whether neurogenic claudication present [facility] Diagnosis Other dorsalgia- Primary Sacroiliac pain Disorders of sacrum Lumbar disc herniation Displacement of lumbar intervertebral disc without myelopathy Degenerative arthropathy of spinal facet joint Spondylosis of unspecified site without mention of myelopathy Myalgia Mylagia and myositis, unspecified Spinal stenosis of lumbar region, unspecified whether neurogenic claudication present documented in this encounter [facility] note* Diagnosis Spinal stenosis of lumbar region, unspecified whether neurogenic claudication present documented in this encounter [facility] note* Diagnosis Lumbar disc herniation- Primary Displacement of lumbar intervertebral disc without myelopathy Lumbar radiculopathy, chronic Thoracic or lumbosacral neuritis or radiculitis, unspecified Lumbar disc herniation Displacement of lumbar intervertebral disc without myelopathy Lumbar radiculopathy, chronic Thoracic or lumbosacral neuritis or radiculitis, unspecified documented in this encounter [facility] note* Diagnosis Lumbar disc herniation- Primary Displacement of lumbar intervertebral disc without myelopathy Lumbar radiculopathy, chronic Thoracic or lumbosacral neuritis or radiculitis, unspecified Lumbar disc herniation Displacement of lumbar intervertebral disc without myelopathy Lumbar radiculopathy, chronic Thoracic or lumbosacral neuritis or radiculitis, unspecified documented in this encounter [facility] Discharge instructions No data available for this section [facility] No data available for this section [facility] ([facility]ative[facility] Diagnostic Procedure Only (Routine) - Closed Specialty Diagnoses / Procedures Referred By Silvia t Referred To Contact XR IMAGING Diagnoses Pain Procedures XR SCOLIOSIS PA STAND/LAT 2V RADEX ENTIR THRC LMBR CRV SAC SPI W/SKULL 2/3 VW Joseph Donovan MD [address] [facility] [place] [address] Xr Imaging [facility] Referral ID Status Reason Start Date Expiration Date V isits Requested Visits Authorized [id number] Closed Auto-Generate d Referral 11/24/2022 12/24/2023 1 1 [facility] for referral (narrative)* Outpatient Procedure (Routine) - Authorized Specialty Diagnoses / Procedures Referred By Chelsiac t Referred To Contact [facility] Diagnoses Sacroiliac pain Lumbar disc herniation Degenerative arthropathy of spinal facet joint Myalgia Spinal stenosis of lumbar region, unspecified whether neurogenic claudication present Procedures EMG(NEURO/NI) NERVE CONDUCTION STUDIES 9-10 STUDIES Tasha Muñoz [place] [address] [place] [address] [facility] [place] [address] [place] [address] Referral ID Status Reason Start Date Expiration Date Visits Requested Visits Authorized [id number] Authorized Auto-Generat ed Referral 05/10/2023 05/09/2024 1 1 * MRI/CT (Routine) - Authorized Specialty Diagnoses / Procedures Referred By Silvia t Referred To Contact MR IMAGING Diagnoses Spinal stenosis of lumbar region, unspecified whether neurogenic claudication present Procedures MRI LUMBAR SPINE WO IVCON MRI SPINAL CANAL LUMBAR W/O CONTRAST MATERIAL Tasha Muñoz [place] [address] [place] [address] [place] [address] Referral ID Status Reason Start Date Expiration Date Visits Requested Visits Authorized [id number] Authorized Auto-Generat ed Referral 05/10/2023 06/08/2024 1 1 * Diagnostic Procedure Only (Routine) - Closed Specialty Diagnoses / Procedures Referred By Chelsiac t Referred To Contact XR IMAGING Diagnoses Sacroiliac pain Lumbar disc herniation Degenerative arthropathy of spinal facet joint Myalgia Spinal stenosis of lumbar region, unspecified whether neurogenic claudication present Procedures XR LUMBAR GENERAL 3V AP/LAT/L5-S1 RADEX SPINE LUMBOSACRAL 2/3 VIEWS Tasha Muñoz [place] [address] [place] [address] [place] [address] Referral ID Status Reason Start Date Expiration Date V isits Requested Visits Authorized [id number] Closed Auto-Generate d Referral 05/10/2023 06/08/2024 1 1 [facility] for referral (narrative)* Diagnostic Procedure Only (Routine) - Closed Specialty Diagnoses / Procedures Referred By Contac t Referred To Contact XR IMAGING Diagnoses Sacroiliac pain Lumbar disc herniation Degenerative arthropathy of spinal facet joint Myalgia Spinal stenosis of lumbar region, unspecified whether neurogenic claudication present Procedures XR LUMBAR GENERAL 3V AP/LAT/L5-S1 RADEX SPINE LUMBOSACRAL 2/3 VIEWS Tasha Muñoz [place] [address] [place] [address] [place] [address] Referral ID Status Reason Start Date Expiration Date V isits Requested Visits Authorized [id number] Closed Auto-Generate d Referral 05/10/2023 06/08/2024 1 1 [facility] for visit Narrative* Diagnostic Procedure Only (Routine) - Closed Specialty Diagnoses / Procedures Referred By Contac t Referred To Contact XR IMAGING Diagnoses Pain Procedures XR SCOLIOSIS PA STAND/LAT 2V RADEX ENTIR THRC LMBR CRV SAC SPI W/SKULL 2/3 VW Joseph Donovan MD [address] [place] [address] [place] [address] Referral ID Status Reason Start Date Expiration Date V isits Requested Visits Authorized [id number] Closed Auto-Generate d Referral 11/24/2022 12/24/2023 1 1 [facility] Summary Purpose Family History No Family History Records FoundNo Family History Records Found No data available for this section No data available for this section No data available for this section No Family History Records FoundNo Family History Records FoundNo Family History Records FoundNo Family History Records FoundNo Family History Records Found Advance Directives No Advanced Directives Records FoundNo Advanced Directives Records FoundNo Advanced Directives Records FoundNo Advanced Directives Records FoundNo Advanced Directives Records FoundNo Advanced Directives Records FoundNo Advanced Directives Records Found Reason for Referral Specialty Diagnoses / Procedures Referred By Contac t Referred To Contact MR IMAGING Diagnoses Spinal stenosis of lumbar region, unspecified whether neurogenic claudication present Procedures MRI LUMBAR SPINE WO IVCON MRI SPINAL CANAL LUMBAR W/O CONTRAST MATERIAL Tasha uMñoz [place] [address] [place] [address] [place] [address] Referral ID Status Reason Start Date Expiration Date V isits Requested Visits Authorized [id number] Closed Auto-Generate d Referral 05/10/2023 06/08/2024 1 1 Specialty Diagnoses / Procedures Referred By Contac t Referred To Contact [facility] Diagnoses Sacroiliac pain Procedures CONSULT TO PHYSICAL THERAPY PHYSICAL THERAPY EVALUATION HIGH COMPLEX 45 MINS Joseph Donovan MD [address] [place] [address] [facility] [place] [facility] [place] [address] Referral ID Status Reason Start Date Expiration Date Visits Requested Visits Authorized [id number] Pending Review Auto-Generat ed Referral 3 01/10/2024 1 1 Additional Source Comments INFORMATION SOURCE (unrecogn ized section and content) DATE CREATED AUTHOR 06/09/2021 [facility] DATE CREATED AUTHOR AUTHOR'S ORGANIZ ATION 10/27/2021 [facility] DATE CREATED AUTHOR AUTHOR'S ORGANIZ ATION 05/05/2023 [facility] DATE CREATED AUTHOR AUTHOR'S ORGANIZ ATION 05/17/2023 [facility] DATE CREATED AUTHOR AUTHOR'S ORGANIZ ATION 06/06/2023 [facility] DATE CREATED AUTHOR AUTHOR'S ORGANIZ ATION 06/13/2023 [facility] DATE CREATED AUTHOR AUTHOR'S ORGANIZ ATION 06/30/2023 [facility] Source Comments (unrecognize d section and content) In the event this informatio n is protected by the Federal Confidentiality of Alcohol and Drug Abuse Patient Records regulations: The Federal rules restrict any use of the information to criminally investigate or prosecute any alcohol or drug abuse patient.[facility] the event this information is protected by the Federal Confidentiality of Alcohol and Drug Abuse Patient Records regulations: The Federal rules restrict any use of the information to criminally investigate or prosecute any alcohol or drug abuse patient.[facility] the event this information is protected by the Federal Confidentiality of Alcohol and Drug Abuse Patient Records regulations: The Federal rules restrict any use of the information to criminally investigate or prosecute any alcohol or drug abuse patient.[facility] the event this information is protected by the Federal Confidentiality of Alcohol and Drug Abuse Patient Records regulations: The Federal rules restrict any use of the information to criminally investigate or prosecute any alcohol or drug abuse patient.[facility] the event this information is protected by the Federal Confidentiality of Alcohol and Drug Abuse Patient Records regulations: The Federal rules restrict any use of the information to criminally investigate or prosecute any alcohol or drug abuse patient.[facility] the event this information is protected by the Federal Confidentiality of Alcohol and Drug Abuse Patient Records regulations: The Federal rules restrict any use of the information to criminally investigate or prosecute any alcohol or drug abuse patient.[facility] the event this information is protected by the Federal Confidentiality of Alcohol and Drug Abuse Patient Records regulations: The Federal rules restrict any use of the information to criminally investigate or prosecute any alcohol or drug abuse patient.[facility] the event this information is protected by the Federal Confidentiality of Alcohol and Drug Abuse Patient Records regulations: The Federal rules restrict any use of the information to criminally investigate or prosecute any alcohol or drug abuse patient.[facility] Hospital[facility] the event this information is protected by the Federal Confidentiality of Alcohol and Drug Abuse Patient Records regulations: The Federal rules restrict any use of the information to criminally investigate or prosecute any alcohol or drug abuse patient.[facility] the event this information is protected by the Federal Confidentiality of Alcohol and Drug Abuse Patient Records regulations: The Federal rules restrict any use of the information to criminally investigate or prosecute any alcohol or drug abuse patient.[facility] the event this information is protected by the Federal Confidentiality of Alcohol and Drug Abuse Patient Records regulations: The Federal rules restrict any use of the information to criminally investigate or prosecute any alcohol or drug abuse patient.[facility] the event this information is protected by the Federal Confidentiality of Alcohol and Drug Abuse Patient Records regulations: The Federal rules restrict any use of the information to criminally investigate or prosecute any alcohol or drug abuse patient.[facility] the event this information is protected by the Federal Confidentiality of Alcohol and Drug Abuse Patient Records regulations: The Federal rules restrict any use of the information to criminally investigate or prosecute any alcohol or drug abuse patient.[facility] Reason for Visit (unrecogniz ed section and content) Reason Comments Patient Update Reason Comments Comprehensive Health Assessment Irregula r astigmatism Reason Comments Radiology XR Reason Comments New Patient Evaluation SCOLIOSIS FOLLOW UP Reason Onset Date Comments Erroneous encounter-disregard 01/08/2023 Reason Comments Pain LBP radiating to the buttocks and down the BL lateral thighs Specialty Diagnoses / Procedures Referred By Contac t Referred To Contact [facility] [place] Diagnoses Sacroiliac pain Procedures [facility]IENT [facility] 60 MINUTES Nelsy Conner PA-C [address] [address] Referral ID Status Reason Start Date Expiration Date V isits Requested Visits Authorized [id number] Closed PCP Requested Referral 03/02/2023 03/01/2024 1 1 Reason Comments Radio Gen RMP Specialty Diagnoses / Procedures Referred By Contac t Referred To Contact XR IMAGING Diagnoses Sacroiliac pain Lumbar disc herniation Degenerative arthropathy of spinal facet joint Myalgia Spinal stenosis of lumbar region, unspecified whether neurogenic claudication present Procedures XR LUMBAR GENERAL 3V AP/LAT/L5-S1 RADEX SPINE LUMBOSACRAL 2/3 VIEWS Tasha Muñoz, [address] [place] [address] [place] [address] Referral ID Status Reason Start Date Expiration Date V isits Requested Visits Authorized [id number] Closed Auto-Generate d Referral 05/10/2023 06/08/2024 1 1 Reason Onset Date Comments EMG 06/05/2023 Specialty Diagnoses / Procedures Referred By Contac t Referred To Contact [facility] Diagnoses Sacroiliac pain Lumbar disc herniation Degenerative arthropathy of spinal facet joint Myalgia Spinal stenosis of lumbar region, unspecified whether neurogenic claudication present Procedures EMG(NEURO/NI) NERVE CONDUCTION STUDIES 9-10 STUDIES Tasha Muñoz [place] [address] [place] [address] [facility] [place] [address] [place] [address] Referral ID Status Reason Start Date Expiration Date V isits Requested Visits Authorized [id number] Closed Auto-Generate d Referral 05/10/2023 05/09/2024 1 1 Specialty Diagnoses / Procedures Referred By Contac t Referred To Contact MR IMAGING Diagnoses Spinal stenosis of lumbar region, unspecified whether neurogenic claudication present Procedures MRI LUMBAR SPINE WO IVCON MRI SPINAL CANAL LUMBAR W/O CONTRAST MATERIAL Tasha Muñoz [place] [address] [place] [address] [place] [address] Referral ID Status Reason Start Date Expiration Date V isits Requested Visits Authorized [id number] Closed Auto-Generate d Referral 05/10/2023 06/08/2024 1 1 Reason Comments procedure instructions Reason Comments Follow Up Low back, bilateral buttock, lateral thigh pain Care Teams (unrecognized sec tion and content) Wet Process Head Miller Relationship Specialty Start Date End Date Ana Celaya [address] [place] [address] PCP - General Pediatrics 10/15/19 Sasha Howell MD [address] [facility] [place] [address] Referring Gastroenterology 08/01/19 Ana Celaya [address] [place] [address] Referring Pediatrics 09/11/19 Wet Process Head Miller Relationship Specialty Start Date End Date Ana Celaya MD [address] [place] [address] PCP - General Pediatrics 10/15/19 Sasha Howell MD [address] [address] [place] [address] Referring Gastroenterology 08/01/19 Ana Celaya MD [address] [place] [address] Referring Pediatrics 09/11/19 Wet Process Head Miller Relationship Specialty Start Date End Date Ana Celaya MD [address] [place] [address] PCP - General Pediatrics 10/15/19 Sasha Howell MD [address] [facility] [place] [address] Referring Gastroenterology 08/01/19 Ana Celaya MD [address] [place] [address] Referring Pediatrics 09/11/19 Wet Process Head Miller Relationship Specialty Start Date End Date Ana Celaya MD [address] [place] [address] PCP - General Pediatrics 10/15/19 Sasha Howell MD [address] [facility] [place] [address] Referring Gastroenterology 08/01/19 Ana Celaya MD [address] [place] [address] Referring Pediatrics 09/11/19 Wet Process Head Miller Relationship Specialty Start Date End Date Ana Celaya MD [address] [place] [address] PCP - General Pediatrics 10/15/19 Sasha Howell MD [address] [place] [address] Referring Gastroenterology 08/01/19 Ana Celaya MD [address] [place] [address] Referring Pediatrics 09/11/19 Wet Process Head Miller Relationship Specialty Start Date End Date Ana Celaya MD [address] [place] [address] PCP - General Pediatrics 10/15/19 Sasha Howell MD [address] [facility] [place] [address] Referring Gastroenterology 08/01/19 Ana Celaya MD [address] [place] [address] Referring Pediatrics 09/11/19 Wet Process Head Miller Relationship Specialty Start Date End Date Ana Celaya MD [address] [place] [address] PCP - General Pediatrics 10/15/19 Sasha Howell MD [address] [place] [address] Referring Gastroenterology 08/01/19 Ana Celaya MD [address] [place] [address] Referring Pediatrics 09/11/19 Wet Process Head Miller Relationship Specialty Start Date End Date Ana Celaya MD [address] [place] [address] PCP - General Pediatrics 10/15/19 Sasha Howell MD [address] [facility] [place] [address] Referring Gastroenterology 08/01/19 Ana Celaya MD [address] [place] [address] Referring Pediatrics 09/11/19 Wet Process Head Miller Relationship Specialty Start Date End Date Ana Celaya MD [address] [place] [address] PCP - General Pediatrics 10/15/19 Sasha Howell MD [address] [facility] [address] Referring Gastroenterology 08/01/19 Ana Celaya MD [address] [place] [address] Referring Pediatrics 09/11/19 Wet Process Head Miller Relationship Specialty Start Date End Date Ana Celaya MD [address] [place] [address] PCP - General Pediatrics 10/15/19 Sasha Howell MD [address] [place] [address] Referring Gastroenterology 08/01/19 Ana Celaya MD [address] [place] [address] Referring Pediatrics 09/11/19 Wet Process Head Miller Relationship Specialty Start Date End Date Ana Celaya MD [address] [place] [address] PCP - General Pediatrics 10/15/19 Sasha Howell MD [address] [facility] [place] [address] Referring Gastroenterology 08/01/19 Ana Celaya MD [address] [place] [address] Referring Pediatrics 09/11/19 Wet Process Head Miller Relationship Specialty Start Date End Date Ana Celaya MD [address] [place] [address] PCP - General Pediatrics 10/15/19 Sasha Howell MD [address] [place] [address] Referring Gastroenterology 08/01/19 Ana Celaya MD [address] [place] [place] [address] Referring Pediatrics 09/11/19 Wet Process Head Miller Relationship Specialty Start Date End Date Ana Celaya MD [address] [place] [address] PCP - General Pediatrics 10/15/19 Sasha Howell MD [address] [facility] [place] [address] Referring Gastroenterology 08/01/19 Ana Celaya MD [address] [place] [address] Referring Pediatrics 09/11/19 FOR RECORDS PERTAINING TO PATIENTS WHO ARE OR HAVE BEEN ENROLLED IN A CHEMICAL DEPENDENCY/SUBSTANCEABUSE PROGRAM, SOME INFORMATION MAY BE OMITTED. This clinical summary was aggregated from multiple sources. Caution should be exercised in using it in the provision of clinical care. This summary normalizes information from multiple sources, and as a consequence, information in this document may materially change the coding, format and clinical context of patient data. In addition, data may be omitted in some cases. CLINICAL DECISIONS SHOULD BE BASED ON THE PRIMARY CLINICAL RECORDS. [facility] [facility]. provides no warranty or guarantee of the accuracy or completeness of information in this document.
[2023-07-07 07:59] LABS: Basophils Absolute Auto 0.1 10^3/uL (0.0-0.1); Basophils Percent Auto 0.7 % (0.2-2.0); Eosinophils Absolute Auto 0.2 10^3/uL (0.0-0.7); Eosinophils Percent Auto 3.3 % (0.9-7.0); Hematocrit 41.9 % (36.0-48.0); Hemoglobin 14.6 g/dL (12.0-16.0); Immature Granulocytes Abs Auto 0.01 10^3/uL (0.00-0.03); Immature Granulocytes Pct Auto 0.1 % (0.0-0.5); Lymphocytes Absolute Auto 2.5 10^3/uL (1.2-3.8); Lymphocytes Percent Auto 37.6 % (20.5-60.0); Mean Corpuscular HGB Conc 34.8 g/dL (29.9-35.2); Mean Corpuscular Hemoglobin 30.1 pg (26.7-34.0); Mean Corpuscular Volume 86.4 fL (81.0-99.0); Mean Platelet Volume 11.2 fL (9.5-13.5); Monocytes Absolute Auto 0.6 10^3/uL (0.3-0.8); Monocytes Percent Auto 9.1 % (1.7-12.0); Neutrophils Absolute Auto 3.3 10^3/uL (1.4-6.5); Neutrophils Percent Auto 49.2 % (43.0-75.0); Platelet Count 180 10^3/uL (150-450); Red Blood Count 4.85 10^6/uL (4.20-5.40); Red Cell Distribution Width 12.7 % (11.0-15.0); White Blood Count 6.7 10^3/uL (4.0-11.0)
[2023-07-07 08:03] VITALS: BP 118/74; PULSE 67; TEMP 36.4; O2SAT 98; BMI 24.9
[2023-07-07 08:22] LABS: HCG Quantitative <1 mIU/mL
[2023-07-07] MEDS: LACTATED RINGER'S SOLUTION 1,000 ML 50 ML IV (08:27)
[2023-07-07] MEDS: LACTATED RINGER'S SOLUTION 1,000 ML 75 ML IV (11:37)
--- NOTE | 2023-07-07 12:03 | P.ON_ITS ---
Brief Operative Note Date of procedure: 07/07/23 Pre-op diagnosis general: pelvic pain Post-op diagnosis: same as pre-op Procedure: NAME OF PROCEDURE: [diagnostic laparoscopy ] PROCEDURE: The patient was taken back to the Operating Room where she was placed in dorsal lithotomy position after given general anesthesia. The patient was prepped and draped in normal sterile fashion. A sponge stick was placed into the patient's vagina. Attention was turned to the patient's abdomen, where a small umbilical incision was made. The fascia was tented using Abigail clamps and the fascia was entered sharply. Confirmation of intraabdominal placement of the 10 mm port was confirmed under direct visualization using a laparoscope. The patient's abdomen was then insufflated using CO2 gas with approximately 4 liters. A second port was placed left laterally, this was done under direct visualization with a 5 mm port. Survey of the patient's abdomen demonstrated normal liver and gallbladder. Survey of the patient's pelvic anatomy demonstrated normal appearing rt and lt ovary and tubes as well as normal appearing uterus. No endometrial implants could be noted, no evidence of any pelvic disease was seen, normal appearing pelvic cavity. All instruments were removed from the patient's abdomen. The patient's abdomen was deinsufflated of CO2 gas. The patient tolerated the procedure well. Sponge stick was removed from the patient's vagina. The patient's infraumbilical fascia was closed using #0 Vicryl on a GI needle. The patient's skin was closed laterally and infraumbilically using 4-0 Vicryl. The patient tolerated the procedure well. Sponge, lap and needle counts were correct x 2. The patient was taken to Recovery Room in stable condition. Anesthesia: SEA Surgeon: Travis Perkins Construction Director: Tri Heard Estimated blood loss (mL): 5 Pathology: none sent Condition: stable Disposition: PACU Urinary Catheter Management Urinary Catheter Management Urethral: Cath placed during this visit: no
[2023-07-07 12:06] VITALS: BP 134/79; PULSE 114; TEMP 36.3; O2SAT 98
[2023-07-07] MEDS: HYDROMORPHONE HCL 0.5 MG/0.5 ML SYRINGE IV ×4 (12:09→12:29)
[2023-07-07] MEDS: HYDROCODONE/ACET 5-325 MG TABLET 1 TAB PO (12:14)
[2023-07-07] MEDS: MIDAZOLAM HCL 2 MG/2 ML VIAL IV (12:29)
[2023-07-07 13:00] VITALS: BP 97/70; PULSE 60; O2SAT 97
[2023-07-07 13:30] VITALS: BP 99/70; PULSE 52; O2SAT 99
--- NOTE | 2023-07-07 14:06 | PC.NURSE ---
1345:pt ambulates to bathroom,voids without difficulty.
== END 2023-07-07 13:57 | disposition home or self-care (01) ==
PROVIDERS: Family Provider Family Medicine; Visit Provider Obstetrics & Gynecology
PROC: (CPT 00840; principal; 2023-07-07 09:05)
DX: R10.2 Pelvic and perineal pain (principal); R68.82 Decreased libido
CPT/HCPCS: 00840; 49320; 36415; 84702; 85025; J1094; J1170; J2704

== ENCOUNTER 2024-06-12 20:10 | Outpatient (REF) | payer OTHER, SELFPAY ==
[2024-06-17 10:09] LABS: Age Gdln ACOG Testing Note (.); IGP, rfx Aptima HPV ASCU Note (.)
== END 2024-06-12 20:11 | disposition home or self-care (01) ==
LOC: LAB 20:10
PROVIDERS: Family Provider Family Medicine; Visit Provider Obstetrics & Gynecology
DX: Z01.419 Encounter for gynecological examination (general) (routine) without abnormal findings (principal)
CPT/HCPCS: 88175